=== PATIENT | male | born 1935 | race Caucasian/White ===

== ENCOUNTER 2017-10-08 22:55 | Inpatient (IN) | END 2017-10-13 15:15 | disposition home or self-care (01) | DRG 726 ==

== ENCOUNTER 2018-12-13 11:28 | Inpatient (IN) | payer MEDICARE, OTHER ==
[~2018-12-13] VITALS: Ht 162.6 cm; Wt 56.1 kg
[~2018-12-13 11:28] MED LIST: AMLO-147 PO; ATOR40TA68 PO; CARB1TAB34 PO; CLOP75TA19 PO; DOCU-216 PO; DUTA0.5C PO; GLIM4TAB PO; HYDR-3671 PO; LEVO25TA6 PO; PANT40TA4 PO; POLY17PO6 PO; PRAM0.12 PO; SERT50TA6 PO; SITA100T11 PO; SVL400T PO
--- NOTE | 2018-12-13 12:20 | ERD ---
ER Documentation Chief Complaint Chief Complaint INTERMITTENT AP WITH N/V HPI An 83-year-old male with history of Parkinson's disease, who presents for decreased oral intake, as well as abdominal pain and nausea vomiting. He had a prior history of stroke stroke, and family endorses that he has also been having a mild headache, history is limited secondary to patient's dementia, the majority of his history was obtained from his family. He lives at home with his . There is not been a fever, no history of trauma, no alleviating or aggravating factors. ROS All systems reviewed and are negative except as per history of present illness. Medications Home Meds Reported Medications Hydralazine Hcl* (Hydralazine Hcl*) 100 Mg Tablet, 100 MG PO NEEDED PRN for HTN, #90 TAB 12/13/18 Carbidopa/Levodopa (CARBIDOPA-LEVO 25-100 MG ODT) 1 Each Tab.rapdis, 1.5 TAB PO QID, #120 TAB 12/13/18 Divalproex Sodium* (Divalproex ER*) 500 Mg Tab.er.24h, 500 MG PO QHS, #30 TAB.SA 12/13/18 Quetiapine Fumarate* (Quetiapine Fumarate*) 25 Mg Tablet, 12.5 MG PO BID, TAB 12/13/18 Atorvastatin* (Atorvastatin*) 40 Mg Tablet, 40 MG PO QHS, #30 TAB 12/13/18 Clopidogrel Bisulfate* (Clopidogrel Bisulfate*) 75 Mg Tablet, 75 MG PO DAILY, #30 TAB 12/13/18 Docusate Sodium* (Colace*) 250 Mg Capsule, 250 MG PO BID, #60 CAP 12/13/18 Sitagliptin* (Januvia*) 100 Mg Tablet, 100 MG PO DAILY, #30 TAB 12/13/18 Diclofenac Sodium* (Voltaren* Gel) 1% -100 Gm Gel, 2 GM TOP BID, #1 TUB 12/13/18 Dutasteride* (Avodart*) 0.5 Mg Capsule, 0.5 MG PO DAILY, CAP 12/13/18 Glimepiride* (Glimepiride*) 4 Mg Tablet, 4 MG PO WITH BREAKFAST DINNE, TAB 12/13/18 Amlodipine Besylate* (Amlodipine Besylate*) 10 Mg Tablet, 10 MG PO DAILY, #30 TAB 12/13/18 Pantoprazole* (Pantoprazole*) 40 Mg Tablet.dr, 40 MG PO AC BREAKFAST, TAB 12/13/18 Levothyroxine Sodium* (Levothyroxine Sodium*) 25 Mcg Tablet, 25 MCG PO BEFORE BREAKFAST, #30 TAB 12/13/18 Ergocalciferol (Vitamin D2) (VITAMIN D2) 50,000 Unit Capsule, 30329 UNIT PO Q7D, CAP 12/13/18 Discontinued Reported Medications Pramipexole* (Pramipexole*) 0.125 Mg Tablet, 0.125 MG PO HS, TAB 10/08/17 Atorvastatin* (Atorvastatin*) 40 Mg Tablet, 40 MG PO QHS, #30 TAB 10/08/17 Dutasteride* (Avodart*) 0.5 Mg Capsule, 0.5 MG PO DAILY, CAP 10/08/17 Glimepiride* (Glimepiride*) 4 Mg Tablet, 4 MG PO WITH BREAKFAST DINNE, TAB 10/08/17 Hydralazine Hcl* (Hydralazine Hcl*) 25 Mg Tab, 25 MG PO Q8, #90 TAB 10/08/17 Amlodipine Besylate* (Amlodipine Besylate*) 10 Mg Tablet, 10 MG PO DAILY, #30 TAB 10/08/17 Carbidopa/Levodopa (Carbidopa-Levodopa 25-100 Tab) 1 Each Tablet, 1 EACH PO QID, TAB 10/08/17 Pantoprazole* (Pantoprazole*) 40 Mg Tablet.dr, 40 MG PO AC BREAKFAST, TAB 10/08/17 Clopidogrel Bisulfate* (Clopidogrel Bisulfate*) 75 Mg Tablet, 75 MG PO DAILY, #30 TAB 10/08/17 Sertraline Hcl* (Sertraline Hcl*) 50 Mg Tablet, 75 MG PO DAILY, #30 TAB 10/08/17 Levothyroxine Sodium* (Levothyroxine Sodium*) 25 Mcg Tablet, 25 MCG PO BEFORE BREAKFAST, #30 TAB 10/08/17 Discontinued Scripts Polyethylene Glycol* (Miralax*) 17 Gm Powd.pack, 17 GM PO BID for 30 Days, #60 UNIT Prov:IAN LY [employer]NAGER 10/13/17 Docusate Sodium (Dok) 100 Mg Capsule, 200 MG PO BID for 30 Days, #60 CAP Prov:IAN [employer]Y [employer] MANAGER 10/13/17 Sevelamer HCl (Renagel) 400 Mg Tab, 400 MG PO WITH MEALS for 30 Days, #90 TAB Prov:IAN [employer]Y [employer] MANAGER 10/13/17 Sitagliptin* (Januvia*) 100 Mg Tablet, 100 MG PO DAILY, #30 TAB Prov:IAN [employer]Y [employer] MA[employer]GER 10/13/17 Allergies Allergies: Coded Allergies: No Known Allergy (Unverified , 12/13/18) PMhx/Soc History of Surgery: Yes (hemorhoids surgery 1994, cataract surgery both 4 years ago and last year.) Anesthesia Reaction: No Hx Neurological Disorder: Yes (Parkinsons and restless legs syndrome and 3x stroke) Hx Respiratory Disorders: No Hx Cardiac Disorders: Yes (hypertension) Hx Psychiatric Problems: No Hx Miscellaneous Medical Probl: No Hx Alcohol Use: No Hx Substance Use: No Hx Tobacco Use: No Physical Exam Vitals Vital Signs Date Temp Pulse Resp B/P (MAP) Pulse Ox O2 O2 Flow FiO2 Time Delivery Rate 12/13/18 97.7 92 16 174/107 100 12:03 (129) Physical Exam Const: Agitated, anxious, elderly appearing male Head: Atraumatic Eyes: Normal Conjunctiva ENT: Normal External Ears, Nose and Mouth. Neck: Full range of motion. No meningismus. Resp: Clear to auscultation bilaterally Cardio: Regular rate and rhythm, no murmurs Abd: Soft, non tender, non distended. Normal bowel sounds Skin: No petechiae or rashes Back: No midline or flank tenderness Ext: No cyanosis, or edema Neur: Awake and alert Psych: Normal Mood and Affect Result Diagram: 12/13/18 1214 12/13/18 1214 Results 24 hrs Laboratory Tests Test 12/13/18 12:14 White Blood Count 4.3 10^3/ul Red Blood Count 3.58 10^6/ul Hemoglobin 11.6 g/dl Hematocrit 34.0 % Mean Corpuscular Volume 95.0 fl Mean Corpuscular Hemoglobin 32.4 pg Mean Corpuscular Hemoglobin Concent 34.1 g/dl Red Cell Distribution Width 12.2 % Platelet Count 113 10^3/UL Mean Platelet Volume 13.2 fl Immature Granulocytes % 0.900 % Neutrophils % 73.9 % Lymphocytes % 17.2 % Monocytes % 6.6 % Eosinophils % 0.7 % Basophils % 0.7 % Nucleated Red Blood Cells % 0.0 /100WBC Immature Granulocytes # 0.040 10^3/ul Neutrophils # 3.1 10^3/ul Lymphocytes # 0.7 10^3/ul Monocytes # 0.3 10^3/ul Eosinophils # 0.0 10^3/ul Basophils # 0.0 10^3/ul Nucleated Red Blood Cells # 0.0 10^3/ul Urine Color YELLOW Urine Clarity CLEAR Urine pH 6.0 Urine Specific Gray 1.010 Urine Ketones TRACE mg/dL Urine Nitrite NEGATIVE mg/dL Urine Bilirubin NEGATIVE mg/dL Urine Urobilinogen NEGATIVE mg/dL Urine Leukocyte Esterase NEGATIVE Mary[place]/ul Urine Microscopic RBC 0 /HPF Urine Microscopic WBC 1 /HPF Urine Hemoglobin 1+ mg/dL Urine Glucose NEGATIVE mg/dL Urine Total Protein 2+ mg/dl Sodium Level 142 mmol/L Potassium Level 4.2 mmol/L Chloride Level 101 mmol/L Carbon Dioxide Level 24 mmol/L Anion Gap 17 Blood Urea Nitrogen 25 mg/dl Creatinine 3.73 mg/dl Est Glomerular Filtrat Rate mL/min mL/min Glucose Level 149 mg/dl Calcium Level 10.2 mg/dl Total Bilirubin 0.5 mg/dl Direct Bilirubin 0.00 mg/dl Indirect Bilirubin 0.5 mg/dl Aspartate Amino Transf (AST/SGOT) 20 IU/L Alanine Aminotransferase (ALT/SGPT) 8 IU/L Alkaline Phosphatase 97 IU/L Troponin I 0.027 ng/ml Total Protein 8.7 g/dl Albumin 4.9 g/dl Globulin 3.80 g/dl Albumin/Globulin Ratio 1.28 Lipase 211 U/L Current Medications Medications Dose Sig/Thor Start Time Status Last (Trade) Ordered Route PRN Stop Time Admin Dose Reason Admin Quetiapine 25 mg ONCE ONCE 12/13/18 DC Fumarate PO 13:30 (Seroquel) 12/13/18 13:31 Lorazepam 2 mg STK-MED 12/13/18 DC (Ativan) ONCE .ROUTE 13:26 12/13/18 13:27 Lorazepam 1 mg ONCE ONCE 12/13/18 DC 12/13/18 (Ativan) IV 13:30 13:31 12/13/18 13:31 Lorazepam 1 mg ONCE ONCE 12/13/18 DC 12/13/18 (Ativan) IV 14:30 14:32 12/13/18 14:31 IV Flush 3 ml PER 12/13/18 (NS 3 ml) PROTOCOL IV 15:00 Ondansetron 4 mg Q6H PRN 12/13/18 HCl (Zofran IV 15:00 Inj) NAUSEA/VOMITI NG 650 mg Q6H PRN 12/13/18 Acetaminophen PO .PAIN 1-3 15:00 (Tylenol OR TEMP Tab) 1 tab Q6H PRN 12/13/18 Acetaminophen PO .PAIN 4-6 15:00 / Hydrocodone Bitart ([place] (5/325)) Morphine 2 mg Q4H PRN 12/13/18 Sulfate IV .PAIN 15:00 (morphine) 7-10 40 mg DAILY@12/14/18 Pantoprazole IV 06:00 (Protonix Iv) Discontinue ONCE ONCE 12/13/18 UNV Miscellaneous current oral XX 15:00 sulfonylur... 12/13/18 15:01 Information (* Miscellaneous Pharmacy Order) Diagnostic 1 ea 02 XX 12/14/18 UNV Test (Pha) 02:00 (Accu-Chek) Insulin 11 units DAILY@199912/13/18 UNV Glargine SC 20:00 (Lantus) Insulin 4 unit WITH MEALS 12/13/18 UNV Aspart SC 18:00 (Novolog Insulin Pen) ONCE ONCE 12/13/18 UNV Miscellaneous HYPOGLYCEMIA XX 15:00 PROTOCOL 12/13/18 15:01 Information w... (* Miscellaneous Pharmacy Order) Insulin NOVOLOG WITH MEALS 12/13/18 UNV Aspart *MILD* BEDTIME SC 18:00 (Novolog ALGORITHM Insulin Pen) Discontinue ONCE ONCE 12/13/18 UNV Miscellaneous all previ... XX 15:00 12/13/18 15:01 Information (* Miscellaneous Pharmacy Order) Amlodipine 10 mg DAILY PO 12/14/18 UNV Besylate 09:00 (Norvasc) 40 mg QHS PO 12/13/18 UNV Atorvastatin 21:00 Calcium (Lipitor) Clopidogrel 75 mg DAILY PO 12/14/18 Bisulfate 09:00 (plaVIX) Divalproex 500 mg QHS PO 12/13/18 UNV Sodium 21:00 (Depakote Er) Docusate 250 mg BID PO 12/13/18 UNV Sodium 21:00 (Colace) Dutasteride 0.5 mg DAILY PO 12/14/18 UNV (Avodart) 09:00 25 mcg BEFORE 12/14/18 UNV Levothyroxine BREAKFAST 07:00 Sodium PO (Synthroid) Quetiapine 12.5 mg BID PO 12/13/18 UNV Fumarate 21:00 (Seroquel) 1.5 tab QID PO 12/13/18 UNV Miscellaneous 17:00 Information Procedures/MDM This is an 83-year-old male who presents for evaluation of dehydration, abdominal pain and generalized malaise. On exam the patient appears somewhat agitated he had no focal neurologic symptoms, get an episode, where he appears t o have gazed off, and there was consideration for possible seizure, I do not witness such an episode, the patient did not appear to have a postictal period. His CT brain was negative, and he has no infectious symptoms this I do not suspect encephalitis. Regarding his abdominal pain, his labs showed no evidence of acidosis, no leukocytosis, they were otherwise unremarkable with the exception of an increase in the creatinine, from prior, which is consistent with an acute kidney injury. I suspect that this is most likely related to his decreased oral intake, given his findings, as well as the patient's difficulty caring for himself at home, he will be admitted for IV fluids, and evaluation of his kidney function, and monitoring for signs of infection. I discussed this with family. EKG: Rate/Rhythm: Normal Sinus Rhythm QRS, ST, T-waves: No changes consistent w/ acute ischemia Impression: No evidence of ischemia or arrhythmia Accepting Care Team: Current data and ongoing care discussed. Primary: Espinoza Consulting: None Outstanding Data: none Departure Diagnosis: Primary Impression: Abdominal pain Abdominal location: unspecified location Qualified Codes: R10.9 - Unspec ified abdominal pain Additional Impression: Headache Headache type: unspecified Headache chronicity pattern: unspecified pattern Intractability: not intractable Qualified Codes: R51 - Headache Condition: Stable KASEY PATEL MD Dec 13, 2018 12:20
[2018-12-13] MEDS ORDERED: ERGO500013 PO (13:25)
[2018-12-13] MEDS ORDERED: LORAZEPAM 2 MG INJ ONE (13:26)
[2018-12-13] MEDS ORDERED: LEVO25TA6 PO (13:26)
[2018-12-13] MEDS ORDERED: AMLO-147 PO (13:26)
[2018-12-13] MEDS ORDERED: PANT40TA4 PO (13:26)
[2018-12-13] MEDS ORDERED: DUTA0.5C PO (13:27)
[2018-12-13] MEDS ORDERED: GLIM4TAB PO (13:27)
[2018-12-13] MEDS ORDERED: SITA100T11 PO (13:28)
[2018-12-13] MEDS ORDERED: DICL100G37 TOP (13:28)
[2018-12-13] MEDS ORDERED: DOCU250C58 PO (13:30)
[2018-12-13] MEDS ORDERED: QUETIAPINE 25 MG TAB PO ONE (13:30)
[2018-12-13] MEDS ORDERED: LORAZEPAM 2 MG INJ IV ONE ×2 (13:30→14:30)
[2018-12-13] MEDS ORDERED: CLOP75TA19 PO (13:30)
[2018-12-13] MEDS ORDERED: ATOR40TA68 PO (13:31)
[2018-12-13] MEDS ORDERED: QUET25TA33 PO (13:32)
[2018-12-13] MEDS ORDERED: DIVA500T15 PO (13:33)
[2018-12-13] MEDS ORDERED: CARB1TAB46 PO (13:34)
[2018-12-13] MEDS ORDERED: HYDR100T25 PO (13:36)
[2018-12-13] MEDS ORDERED: ONDANSETRON 4 MG INJ IV PRN (15:00)
[2018-12-13] MEDS ORDERED: LORAZEPAM 2 MG INJ IV PRN ×2 (15:00→15:30)
[2018-12-13] MEDS ORDERED: NACL 0.9% 3 ML SYG IV SCH (15:00)
[2018-12-13] MEDS ORDERED: ACETAMINOPHEN 325 MG TAB PO PRN (15:00)
[2018-12-13] MEDS ORDERED: HYDROCODONE/APAP (5/325) TAB PO PRN (15:00)
--- NOTE | 2018-12-13 15:21 | HP ---
Date/Time of Note Date/Time of Note DATE: 12/13/18 TIME: 15:21 Assessment/Plan VTE Prophylaxis Pharmacological prophylaxis: other Assessment/Plan Hospital Course Patient is a male with a past medical history significant for severe Parkinson's dementia, CKD, BPH, diabetes mellitus, CVA, hypothyroidism, prostate cancer who presents to [facility] brought in by family. Patient's family states that they awoke to the patient this morning being more altered than normal. Patient's baseline apparently is able to answer simple questions and able to recite the family members names. Currently patient is not oriented at all. Patient unable to answer simple question and shaking in the bed however patient while shaking is having coordinated movements including pulling up his blanket as well as trying to take his socks off. Patient is not able to cooperate at this time with HPI for rest of history is given from family at bedside. Patient's family states that over the past week patient has been having intermittently worsening nausea vomiting as well as decreased p.o. intake. Patient has not taken his medications for a few days. HPI is limited as patient is not coherent enough to answer questions. Objective Physical exam General: Patient is laying in bed but not answering questions Mentation: Patient is alert but not oriented Head: Normocephalic atraumatic Eyes: EOMI, pupils reactive to light Neck: Supple, nontender, midline Respiratory: Clear to auscultation bilaterally Cardiovascular: regular rate, no obvious murmurs Gastrointestinal: non-tender to palpation, bowel sounds heard. Neurological: Moves all extremities spontaneously, however has some shaking movements Skin: No new skin lesions Assessment and plan Acute encephalopathy -May be due to decreased p.o. intake and volume depletion as patient has not been having good intake for the past week -CT negative for acute intracranial issues -MRI pending -IV fluid -No known source of infection at this time, no fever -Questionable seizure activity as patient is shaking a lot however during the shaking episodes patient has coordinated movements and is unlike typical shaking activity, Ativan as needed for seizures -Patient also not taking medication for quite some time as unable to tolerate p.o., IV Zyprexa and IV Depakote for now -Neurology consulted Shaking episodes -Worsening sequelae of Parkinson's and not being able to take his medications versus seizure -Treat seizure as needed with Ativan -Neurology consulted -MRI pending -EEG pending Acute kidney injury on chronic kidney disease -Patient's baseline is in the twos per family, -Has a history of obstruction, will insert Preston -We will IV fluid hydrate -Nephrology consulted Diabetes mellitus -Insulin sliding scale BPH -Continue meds when able Hypertension -PRN meds for now 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 History of prostate cancer -Monitor Disposition -We will need to stabilize patient from the neurological standpoint, patient still shaking, use Ativan as needed, will give 1 dose of Zyprexa as patient has not has his Seroquel and some time, will also restart patient's Depakote Result Diagram: 12/13/18 1214 12/13/18 1214 Results 24hrs Laboratory Tests Test 12/13/18 12:14 12/13/18 15:14 White Blood Count 4.3 #L Red Blood Count 3.58 L Hemoglobin 11.6 L Hematocrit 34.0 L Mean Corpuscular Volume 95.0 Mean Corpuscular Hemoglobin 32.4 Mean Corpuscular Hemoglobin Concent 34.1 Red Cell Distribution Width 12.2 Platelet Count 113 L Mean Platelet Volume 13.2 H Immature Granulocytes % 0.900 H Neutrophils % 73.9 Lymphocytes % 17.2 Monocytes % 6.6 Eosinophils % 0.7 Basophils % 0.7 Nucleated Red Blood Cells % 0.0 Immature Granulocytes # 0.040 H Neutrophils # 3.1 Lymphocytes # 0.7 L Monocytes # 0.3 Eosinophils # 0.0 Basophils # 0.0 Nucleated Red Blood Cells # 0.0 Urine Color YELLOW Urine Clarity CLEAR Urine pH 6.0 Urine Specific [place] 1.010 Urine Ketones TRACE A Urine Nitrite NEGATIVE Urine Bilirubin NEGATIVE Urine Urobilinogen NEGATIVE Urine Leukocyte Esterase NEGATIVE Urine Microscopic RBC 0 Urine Microscopic WBC 1 Urine Hemoglobin 1+ H Urine Glucose NEGATIVE Urine Total Protein 2+ H Sodium Level 142 Potassium Level 4.2 Chloride Level 101 Carbon Dioxide Level 24 Anion Gap 17 H Blood Urea Nitrogen 25 H Creatinine 3.73 H Est Glomerular Filtrat Rate mL/min Glucose Level 149 Calcium Level 10.2 Total Bilirubin 0.5 Direct Bilirubin 0.00 Indirect Bilirubin 0.5 Aspartate Amino Transf (AST/SGOT) 20 Alanine Aminotransferase (ALT/SGPT) 8 L Alkaline Phosphatase 97 Troponin I 0.027 Total Protein 8.7 H Albumin 4.9 Globulin 3.80 H Albumin/Globulin Ratio 1.28 Lipase 211 Bedside Glucose 151 HPI/ROS Admit Date/Time Admit Date/Time PMH/Family/Social Past Medical History Medications Current Medications IV Flush (NS 3 ml) 3 ml PER PROTOCOL IV ; Start 12/13/18 at 15:00 Ondansetron HCl (Zofran Inj) 4 mg Q6H PRN IV NAUSEA/VOMITING; Start 12/13/18 at 15:00 Acetaminophen (Tylenol Tab) 650 mg Q6H PRN PO .PAIN 1-3 OR TEMP; Start 12/13/18 at 15:00 Acetaminophen/ Hydrocodone Bitart ([place] (5/325)) 1 tab Q6H PRN PO .PAIN 4-6; Start 12/13/18 at 15:00 Morphine Sulfate (morphine) 2 mg Q4H PRN IV .PAIN 7-10; Start 12/13/18 at 15:00 Pantoprazole (Protonix Iv) 40 mg DAILY@06 IV ; Start 12/14/18 at 06:00 Miscellaneous Information (* Miscellaneous Pharmacy Order) Discontinue current oral sulfonylur... ONCE ONCE XX ; Start 12/13/18 at 15:00; Stop 12/13/18 at 15:01; Status UNV Diagnostic Test (Pha) (Accu-Chek) 1 ea 02 XX ; Start 12/14/18 at 02:00; Status UNV Miscellaneous Information (* Miscellaneous Pharmacy Order) HYPOGLYCEMIA PROTOCOL w... ONCE ONCE XX ; Start 12/13/18 at 15:00; Stop 12/13/18 at 15:01; Status UNV Miscellaneous Information (* Miscellaneous Pharmacy Order) Discontinue all p revi... ONCE ONCE XX ; Start 12/13/18 at 15:00; Stop 12/13/18 at 15:01; Status UNV Amlodipine Besylate (Norvasc) 10 mg DAILY PO ; Start 12/14/18 at 09:00; Status UNV Atorvastatin Calcium (Lipitor) 40 mg QHS PO ; Start 12/13/18 at 21:00; Status UNV Clopidogrel Bisulfate (plaVIX) 75 mg DAILY PO ; Start 12/14/18 at 09:00 Docusate Sodium (Colace) 250 mg BID PO ; Start 12/13/18 at 21:00; Status UNV Dutasteride (Avodart) 0.5 mg DAILY PO ; Start 12/14/18 at 09:00; Status UNV Quetiapine Fumarate (Seroquel) 12.5 mg BID PO ; Start 12/13/18 at 21:00; Status UNV Miscellaneous Information 1.5 tab QID PO ; Start 12/13/18 at 17:00; Status UNV Lorazepam (Ativan) 2 mg Q10MIN PRN IV seizure; Start 12/13/18 at 15:00; Status UNV Olanzapine (Zyprexa) 10 mg ONCE ONCE IM ; Start 12/13/18 at 16:00; Stop 12/13/18 at 16:01 Insulin Aspart (Novolog Insulin Pen) NOVOLOG *MILD* ALGORITHM Q4 SC ; Start 12/02 10/22 at 18:00; Status UNV Labetalol HCl (Labetalol) 10 mg Q4 PRN IV sbp >160; Start 12/13/18 at 15:30; Status UNV Lorazepam (Ativan) 1 mg Q6H PRN IV agitation; Start 12/13/18 at 15:30; Status UNV Valproate Sodium 500 mg/Sodium Chloride 55 ml @ 55 mls/hr QHS IVPB ; Start 12/13/18 at 21:00; Status UNV Levothyroxine Sodium (Synthroid Iv) 17 mcg DAILY IV ; Start 12/13/18 at 15:30; Status UNV Coded Allergies: No Known Allergy (Unverified , 12/13/18) Past Surgical History Past Surgical Hx: endoscopy Family History Significant Family History: no pertinent family hx Social History Smoking Status: Never smoker Exam/Review of Systems Vital Signs Vitals Vital Signs Date Temp Pulse Resp B/P (MAP) Pulse Ox O2 O2 Flow FiO2 Time Delivery Rate 12/13/18 93 26 148/89 98 Room Air 13:30 (108) 12/13/18 97.7 12:03 KASEY AKBAR Dec 13, 2018 15:21
[2018-12-13] MEDS ORDERED: DEXTROSE 50% 50 ML SYRINGE IV PRN ×2 (15:30)
[2018-12-13] MEDS ORDERED: GLUCOSE GEL 15 GRAM TUBE BUCCAL PRN (15:30)
[2018-12-13] MEDS ORDERED: GLUCAGON 1 MG INJ IM PRN (15:30)
[2018-12-13] MEDS ORDERED: GLUCOSE GEL 15 GRAM TUBE PO PRN ×2 (15:30)
[2018-12-13] MEDS ORDERED: OLANZAPINE 10 MG VIAL IM ONE (16:00)
[2018-12-13] MEDS ORDERED: CARBIDOPA PO SCH (17:00)
[2018-12-13] MEDS: CARBIDOPA/LEVODOPA (25/100) TAB PO SCH ×2 (17:00→21:00)
[2018-12-13] MEDS ORDERED: LIDOCAINE 2% JEL.PF.APP 5 ML UROJET SYRINGE MM ONE (17:00)
[2018-12-13] MEDS ORDERED: LEVODOPA PO SCH (17:00)
[2018-12-13] MEDS ORDERED: [UNRECOGNIZED DRUG - OTHER] PO SCH (17:00)
[2018-12-13] MEDS ORDERED: hydrALAzine 20 MG INJ IV ONE (17:00)
[2018-12-13] MEDS: LEVOTHYROXINE 100 MCG VIAL IV SCH (17:03)
[2018-12-13] MEDS: LABETALOL HCL 20MG INJ IV PRN (17:39)
[2018-12-13] MEDS: INSULIN ASPART [NOVOLOG] 3 ML PEN SC SCH ×2 (18:00→22:33)
[2018-12-13] MEDS ORDERED: INSULIN ASPART [NOVOLOG] 3 ML PEN SC SCH ×2 (18:00)
[2018-12-13] MEDS ORDERED: INSULIN GLARGINE [LANTus] (100 UNITS/ML) SYG SC SCH (20:00)
[2018-12-13 20:41] VITALS: PULSE 112
[2018-12-13 20:45] VITALS: Ht 162.6 cm; Wt 56.1 kg
[2018-12-13 20:50] VITALS: BP 126/74; PULSE 102; RESP 20
[2018-12-13] MEDS: DOCUSATE SODIUM 250 MG CAP PO SCH (21:00)
[2018-12-13] MEDS: QUETIAPINE 25 MG TAB PO SCH (21:00)
[2018-12-13] MEDS: ATORVASTATIN 40 MG TAB PO SCH (21:00)
[2018-12-13] MEDS ORDERED: DIVALPROEX (ER) 500 MG TAB PO SCH (21:00)
[2018-12-13] MEDS ORDERED: HALOPERIDOL 5 MG INJ IM PRN (22:00)
[2018-12-13] MEDS ORDERED: DEXTROSE 5%-0.45% NACL 1,000 ML IV SCH (22:30)
[2018-12-13] MEDS: VALPROATE INJ 500 MG in SOD CHLORIDE 0.9% 50 ML IVPB SCH (22:39)
--- NOTE | 2018-12-13 23:09 | CONS ---
DATE OF ADMISSION: 12/13/2018 DATE OF CONSULTATION: 12/13/2018 REASON FOR CONSULT: Acute kidney injury. PHYSICIAN REQUESTING CONSULT: Dr. Kasey Doran HISTORY OF PRESENT ILLNESS: This is an 83-year-old male with a past medical history of chronic kidne y disease stage IV with a previous baseline creatinine around 2.5 to 2.8 mg/dL, history of hypertensi on, anemia, diabetes, history of progressive dementia, history of Parkinson disease, history of CVA, history of coronary artery disease, history of hypothyroidism, who presented to [facility] with worsening mental status. The patient's history was obtained by reviewing the medical re cords, speaking to the patient's family at bedside. Apparently, patient at baseline is able to answe r simple questions. However, over the past several days, the patient was noted to have uncoordinated movements, myoclonic-type jerks. The patient is also noted to have decreased p.o. intake including nausea and vomiting. As a result of his progressive symptoms, the patient was brought in to [facility] Room for evaluation. Upon arrival, patient had imaging studies performed including a CT scan of the brain which showed no acute findings, an abdominal CT scan which showed no evidence of acute intra-abdominal findings, no e vidence of obstructive uropathy. The patient in the emergency room was given IV fluids, was given an xiolytics . The patient, however, continued to have episodes of agitation and myoclonic jerks. In terms of patient's renal history, the patient has a previous history of chronic kidney disease wit h previous baseline creatinine between 2.5 and 2.8 mg/dL. On admission, patient had a creatinine of 3.7 mg/dL. There were no reports of any hemoptysis, positive nausea, positive vomiting, no hematoche janis. PAST MEDICAL HISTORY: As stated above, history of chronic kidney disease stage IV, history of hypert ension, history of anemia, diabetes, Parkinson disease, CVA, coronary artery disease, hypothyroidism. PAST SURGICAL HISTORY: Status post EGD. FAMILY HISTORY: Noncontributory. SOCIAL HISTORY: He does not drink, smoke or do drugs. MEDICATIONS: The patient's medications have been reviewed. REVIEW OF SYSTEMS: Unable to do adequate review of systems. The patient is altered. Pertinent posi tives as obtained by reviewing medical records, speaking to hospital staff as stated in the HPI. Oth erwise negative. PHYSICAL EXAMINATION: VITAL SIGNS: Blood pressure is 200/110. Pulse is 76. Temperature is 98.6. HEENT: Head is normocephalic. Pupils are reactive to light. NECK: Supple. HEART: Tachycardic. LUNGS: Show diminished breath sounds at the bases. ABDOMEN: Soft, nontender to palpation. No rebound or guarding. EXTREMITIES: Negative for clubbing or cyanosis. No edema. DERMATOLOGIC: No rashes. MUSCULOSKELETAL: No joint effusion. NEUROLOGIC: The patient has noted myoclonic-type jerks. No obvious evidence of focal deficits. LABORATORY DATA: Show a white count of 4.3, hemoglobin 11.6, platelet count 113. BUN 25, creatinine 3.73. The patient's urinalysis has been reviewed. IMAGING STUDIES: Have been reviewed. ASSESSMENT AND PLAN: This is an 83-year-old male who presents with: 1. Nonoliguric kidney injury on top of chronic kidney disease stage IV with previous baseline creati nine around 2.5 to 2.8 mg/dL. The etiology of acute kidney injury is possibly multifactorial seconda ry to hemodynamics, possible tubular injury in the setting of hypertensive urgency, possible obstruct becki uropathy. The patient's initial urinalysis was reviewed. It showed no active sediment, +2 prote inuria. The patient is status post Preston catheter with excellent urinary output. Plan at this point would be to continue current medical management. Would discontinue IV fluids in the setting of hype rtension. Would continue current blood pressure regimen. Avoid significant hemodynamic fluctuations if possible. Would otherwise continue supportive care, renally dose all meds, avoid nephrotoxins. Will continue to monitor renal function closely. Please note I did speak with the patient's family a t bedside, informing them that if renal function should further decline in the setting of severe ence phalopathy, renal replacement therapy may be indicated. The patient's family is aware and is deferri ng any form of dialysis at this time. 2. Hypertensive urgency. Etiology is likely due to agitation. Continue to monitor. Continue curre nt blood pressure regimen. Would hold IV fluids. 3. Anemia. Monitor H and H levels. 4. Mineral bone disorder. Monitor calcium and phosphorus levels. 5. History of benign prostatic hypertrophy. Today, the patient is status post Preston catheter placem ent. Continue to monitor. 6. History of prostate cancer. Continue to monitor. 7. Acute encephalopathy. Etiology may be multifactorial secondary to progressive dementia, Parkinso n disease, questionable uremia. The patient is status post IV Zyprexa and Depakote. Continue to mon itor. Consider neurologic evaluation. 8. Myoclonic jerks. Unclear if this is due to Parkinson's versus uremia, questionable seizure. Con tinue medical management. Follow up MRI. Follow up with Neurology. 9. Diabetes. Continue current insulin regimen. 10. History of Parkinson dementia. Continue current medical management. 11. History of cerebrovascular accident. Continue Plavix. 12. Hypothyroidism. Continue Synthroid. Thank you, Dr. Doran, for this interesting consult. It will be a pleasure to follow the patient with kar paul throughout the hospital course. Dictated By: OUMOU MCNULTY DO NR/NTS Conf#: [id number] DID#: [id number] CC: KASEY DORAN MD;*EndCC*
[2018-12-14] VITALS (9 sets, daily range): BP systolic 108–163; BP diastolic 59–77; PULSE 56–108; RESP 20
[2018-12-14] MEDS: INSULIN ASPART [NOVOLOG] 3 ML PEN SC SCH ×6 (01:00→21:00)
[2018-12-14] MEDS ORDERED: ACCU-CHEK XX SCH (02:00)
[2018-12-14] MEDS: PANTOPRAZOLE 40 MG INJ IV SCH (05:19)
[2018-12-14] MEDS ORDERED: LEVOTHYROXINE 25 MCG TAB PO SCH (07:00)
--- NOTE | 2018-12-14 07:06 | EEG ---
EEG NOTE Report Details DATE OF TEST: 12/13/18 HISTORY: The patient is a 83-year-old M who presents with altered mental status and heightened shaking. This EEG is requested to evaluate for seizures. SEDATION: None. CONDITIONS OF RECORDING: This EEG was recorded digitally on the [employer] machine, using the International 10-20 System of electrodes plus anterior temporals and [place]. STATES SAMPLED: Lethargic. FINDINGS: There is frontally predominant high frequency artifact throughout. The background is otherwise continuous and grossly symmetric...predominated by polymorphic theta and delta activity. A well-formed posterior dominant rhythm is absent. The normal [id number] frequency-amplitude gradient was absent. Photic stimulation elicits does not elicit any definite driving responses or epileptiform discharges. Hyperventilation was not performed. No asymmetries, focal abnormalities or epileptiform discharges were seen. IMPRESSION: Technically limited electroencephalogram notable for: diffuse slowing. COMMENT: The slowing of the background indicates diffuse cortical dysfunction of nonspecific etiology. JAMILA SALAZAR Dec 14, 2018 07:06
[2018-12-14] MEDS: LEVOTHYROXINE 100 MCG VIAL IV SCH (08:52)
[2018-12-14] MEDS: CARBIDOPA/LEVODOPA (25/100) TAB PO SCH ×5 (08:53→21:00)
[2018-12-14] MEDS: QUETIAPINE 25 MG TAB PO SCH ×2 (08:53→21:00)
[2018-12-14] MEDS: DOCUSATE SODIUM 250 MG CAP PO SCH ×2 (08:54→21:00)
[2018-12-14] MEDS: CLOPIDOGREL 75 MG TAB PO SCH (08:54)
[2018-12-14] MEDS: DUTASTERIDE 0.5 MG CAP PO SCH (08:54)
[2018-12-14] MEDS: AMLODIPINE 10 MG TAB PO SCH (08:54)
--- NOTE | 2018-12-14 09:18 | CONS ---
Assessment/Plan Assessment/Plan Hospital Course 83 M w/ Parkinson Disease, who presents for evaluation of ams and heightened tremors. BUN/Cr elevated; baseline is presently unknown.. Perhaps an acute toxic-metabolic on chronic encephalopathy.. A focal SOLID PLASTERER process is less likely. CTH is without acute intracranial pathology, though notable for severe atrophy. EEG is without epileptiform activity. P: Clarify baseline renal function when able Add CXR to exclude infiltrate Add B12, Ammonia, Depakote level Decrease Sinemet to 25/100 mg 1 tab qid for now.. Goehner as able Avoid 1st gen dopamine antagonists where possible PT/OT/ST as necessary Other medical workup management per primary Will follow clinically Consultation Date/Type/Reason Admit Date/Time Type of Consult Neurology Reason for Consultation worsening ams Requesting Provider: KASEY AKBAR Date/Time of Note DATE: 12/14/18 TIME: 09:18 Hx of Present Illness The pt is unable to contribute a hx. It is elsewhere noted: Patient is a male with a past medical history significant for severe Parkinson's dementia, CKD, BPH, diabetes mellitus, CVA, hypothyroidism, prostate cancer who presents to [facility] brought in by family. Patient's family states that they awoke to the patient this morning being more altered than artie l. Patient's baseline apparently is able to answer simple questions and able to recite the family members names. Currently patient is not oriented at all. Patient unable to answer simple question and shaking in the bed however patient while shaking is having coordinated movements including pulling up his blanket as well as trying to take his socks off. Patient is not able to cooperate at this time with HPI for rest of history is given from family at bedside. Patient's family states that over the past week patient has been having intermittently worsening nausea vomiting as well as decreased p.o. intake. Patient has not taken his medications for a few days. HPI is limited as patient is not coherent enough to answer questions. limited d/t ams Exam/Review of Systems Exam Vitals Vital Signs Date Temp Pulse Resp B/P (MAP) Pulse Ox O2 O2 Flow FiO2 Time Delivery Rate 12/14/18 62 08:05 12/14/18 97.7 20 129/64 100 07:26 (85) 12/14/18 Nasal 2.0 04:00 Cannula Intake and Output 12/13/18 12/13/18 12/14/18 1515:00 23:00 07:00 IntakeIntake Total 550 ml OutputOutput Total 1250 ml BalanceBalance -700 ml Exam PE: Gen Appearance: Anxious, agitated HEENT: Normocephalic Cardiovascular: Regular rate Abdomen: Soft Extremities: Dry NE: The patient was awake and alert, though nonverbal. Able to fix and follow. Unable to follow commands. The pt was rocking back and forth in the bed. Cranial nerve examination was limited by mental status. Pupils were equal and reactive to light. There was no afferent pupillary defect. Funduscopic examination was limited. Face was grossly symmetric, w/ present corneal and cough reflexes. Tone was normal. Muscle bulk was normal. I did not see fasciculations. The pt moved his extremities spontaneously. Coordination and gait testing was limited by mental status. Arm and leg reflexes were within normal limits and symmetric. Carreon's sign was absent. Plantar responses were flexor. Results Result Diagram: 12/14/18 0613 12/14/18 0613 Results 24hrs Laboratory Tests Test 12/13/18 12:14 12/13/18 15:14 12/13/18 18:15 12/13/18 22:32 White Blood Count 4.3 #L Red Blood Count 3.58 L Hemoglobin 11.6 L Hematocrit 34.0 L Mean Corpuscular 95.0 Volume Mean Corpuscular 32.4 Hemoglobin Mean Corpuscular 34.1 Hemoglobin Concent Red Cell 12.2 Distribution Width Platelet Count 113 L Mean Platelet Volume 13.2 H Immature 0.900 H Granulocytes % Neutrophils % 73.9 Lymphocytes % 17.2 Monocytes % 6.6 Eosinophils % 0.7 Basophils % 0.7 Nucleated Red Blood 0.0 Cells % Immature 0.040 H Granulocytes # Neutrophils # 3.1 Lymphocytes # 0.7 L Monocytes # 0.3 Eosinophils # 0.0 Basophils # 0.0 Nucleated Red Blood 0.0 Cells # Urine Color YELLOW Urine Clarity CLEAR Urine pH 6.0 Urine Specific 1.010 [place] Urine Ketones TRACE A Urine Nitrite NEGATIVE Urine Bilirubin NEGATIVE Urine Urobilinogen NEGATIVE Urine Leukocyte NEGATIVE Esterase Urine Microscopic 0 RBC Urine Microscopic 1 WBC Urine Hemoglobin 1+ H Urine Random 58.65 Creatinine Urine Random Sodium 62 Urine Glucose NEGATIVE Urine Total Protein 300.0 H Sodium Level 142 Potassium Level 4.2 Chloride Level 101 Carbon Dioxide Level 24 Anion Gap 17 H Blood Urea Nitrogen 25 H Creatinine 3.73 H Est Glomerular Filtrat Rate mL/min Glucose Level 149 Calcium Level 10.2 Total Bilirubin 0.5 Direct Bilirubin 0.00 Indirect Bilirubin 0.5 Aspartate Amino 20 Transf (AST/SGOT) Alanine 8 L Aminotransferase (AL T/SGPT) Alkaline Phosphatase 97 Troponin I 0.027 Total Protein 8.7 H Albumin 4.9 Globulin 3.80 H Albumin/Globulin 1.28 Ratio Lipase 211 Urine Opiates Screen Negative Urine Barbiturates Negative Urine Amphetamines Negative Screen Urine Negative Benzodiazepines Screen Urine Cocaine Screen Negative Urine Cannabinoids Negative Bedside Glucose 151 110 98 Test 12/14/18 01:25 12/14/18 05:17 12/14/18 06:13 Bedside Glucose 114 122 White Blood Count 6.1 # Red Blood Count 3.17 L Hemoglobin 10.0 L Hematocrit 31.2 L Mean Corpuscular 98.4 Volume Mean Corpuscular 31.5 Hemoglobin Mean Corpuscular 32.1 Hemoglobin Concent Red Cell 13.0 Distribution Width Platelet Count 108 L Mean Platelet Volume 13.9 H Immature 0.500 H Granulocytes % Neutrophils % 71.8 Lymphocytes % 15.4 Monocytes % 11.3 H Eosinophils % 0.3 Basophils % 0.7 Nucleated Red Blood 0.0 Cells % Immature 0.030 Granulocytes # Neutrophils # 4.4 Lymphocytes # 0.9 Monocytes # 0.7 Eosinophils # 0.0 Basophils # 0.0 Nucleated Red Blood 0.0 Cells # Sodium Level 146 H Potassium Level 4.3 Chloride Level 110 Carbon Dioxide Level 24 Anion Gap 12 Blood Urea Nitrogen 27 H Creatinine 3.88 H Est Glomerular Filtrat Rate mL/min Glucose Level 132 Hemoglobin A1c 5.7 Calcium Level 9.3 Magnesium Level 2.2 Total Bilirubin 0.3 Direct Bilirubin 0.00 Indirect Bilirubin 0.3 Aspartate Amino 36 # Transf (AST/SGOT) Alanine 14 Aminotransferase (AL T/SGPT) Alkaline Phosphatase 75 Total Protein 7.1 # Albumin 4.0 Globulin 3.10 Albumin/Globulin 1.29 Ratio Triglycerides Level 340 H Cholesterol Level 187 LDL Cholesterol, 64 Calculated HDL Cholesterol 55 Cholesterol/HDL 3.4 Ratio Thyroid Stimulating 3.690 Hormone (TSH) Medications Medication Current Medications IV Flush (NS 3 ml) 3 ml PER PROTOCOL IV ; Start 12/13/18 at 15:00 Ondansetron HCl (Zofran Inj) 4 mg Q6H PRN IV NAUSEA/VOMITING; Start 12/13/18 at 15:00 Acetaminophen (Tylenol Tab) 650 mg Q6H PRN PO .PAIN 1-3 OR TEMP; Start 12/13/18 at 15:00 Acetaminophen/ Hydrocodone Bitart (Ler[place] (5/325)) 1 tab Q6H PRN PO .PAIN 4-6; Start 12/13/18 at 15:00 Morphine Sulfate (morphine) 2 mg Q4H PRN IV .PAIN 7-10; Start 12/13/18 at 15:00 Pantoprazole (Protonix Iv) 40 mg DAILY@06 IV Last administered on 12/14/18at 05: 19; Admin Dose 40 MG; Start 12/14/18 at 06:00 Diagnostic Test (Pha) (Accu-Chek) 1 ea 02 XX Last administered on 12/14/18at 01:27; Admin Dose 1 EA; Start 12/14/18 at 02:00 Amlodipine Besylate (Norvasc) 10 mg DAILY PO ; Start 12/14/18 at 09:00 Atorvastatin Calcium (Lipitor) 40 mg QHS PO ; Start 12/13/18 at 21:00 Clopidogrel Bisulfate (plaVIX) 75 mg DAILY PO ; Start 12/14/18 at 09:00 Docusate Sodium (Colace) 250 mg BID PO ; Start 12/13/18 at 21:00 Dutasteride (Avodart) 0.5 mg DAILY PO ; Start 12/14/18 at 09:00 Quetiapine Fumarate (Seroquel) 12.5 mg BID PO ; Start 12/13/18 at 21:00 Lorazepam (Ativan) 2 mg Q10MIN PRN IV seizure; Start 12/13/18 at 15:00 Insulin Aspart (Novolog Insulin Pen) NOVOLOG *MILD* ALGORITHM Q4 SC ; Start 12/13/18 at 18:00 Labetalol HCl (Labetalol) 10 mg Q4H PRN IV sbp >160 Last administered on 12/13/18at 17:39; Admin Dose 10 MG; Start 12/13/18 at 15:30 Lorazepam (Ativan) 1 mg Q6H PRN IV agitation; Start 12/13/18 at 15:30 Valproate Sodium 500 mg/Sodium Chloride 55 ml @ 55 mls/hr QHS IVPB Last administered on 12/13/18at 22:39; Admin Dose 55 MLS/HR; Start 12/13/18 at 21:00 Levothyroxine Sodium (Synthroid Iv) 17 mcg DAILY IV Last administered on 12/14/18at 08:52; Admin Dose 17 MCG; Start 12/13/18 at 15:30 Miscellaneous Information 1 ea NOTE XX ; Start 12/13/18 at 15:30 Glucose (Glutose) 15 gm Q15M PRN PO DECREASED GLUCOSE; Start 12/13/18 at 15:30 Glucose (Glutose) 22.5 gm Q15M PRN PO DECREASED GLUCOSE; Start 12/13/18 at 15:30 Dextrose (D50w Syringe) 25 ml Q15M PRN IV DECREASED GLUCOSE; Start 12/13/18 at 15:30 Dextrose (D50w Syringe) 50 ml Q15M PRN IV DECREASED GLUCOSE; Start 12/13/18 at 15:30 Glucagon (Glucagen) 1 mg Q15M PRN IM DECREASED GLUCOSE; Start 12/13/18 at 15:30 Glucose (Glutose) 15 gm Q15M PRN BUCCAL DECREASED GLUCOSE; Start 12/13/18 at 1 5:30 Carbidopa/Levodopa (Sinemet (25/ 100)) 1.5 tab QID PO ; Start 12/13/18 at 17:00 Haloperidol (Haldol) 5 mg ONCE PRN IM AGITATION/ANXIETY Last administered on 12/13/18at 23:23; Admin Dose 5 MG; Start 12/13/18 at 22:00 Dextrose 1,000 ml @ 50 mls/hr Q20H IV ; Start 12/14/18 at 09:30; Status UNV Past Medical History reviewed Home Meds Reported Medications Hydralazine Hcl* (Hydralazine Hcl*) 100 Mg Tablet, 100 MG PO NEEDED PRN for HTN, #90 TAB 12/13/18 Carbidopa/Levodopa (CARBIDOPA-LEVO 25-100 MG ODT) 1 Each Tab.rapdis, 1.5 TAB PO QID, #120 TAB 12/13/18 Divalproex Sodium* (Divalproex ER*) 500 Mg Tab.er.24h, 500 MG PO QHS, #30 TAB.SA 12/13/18 Quetiapine Fumarate* (Quetiapine Fumarate*) 25 Mg Tablet, 12.5 MG PO BID, TAB 12/13/18 Atorvastatin* (Atorvastatin*) 40 Mg Tablet, 40 MG PO QHS, #30 TAB 12/13/18 Clopidogrel Bisulfate* (Clopidogrel Bisulfate*) 75 Mg Tablet, 75 MG PO DAILY, #30 TAB 12/13/18 Docusate Sodium* (Colace*) 250 Mg Capsule, 250 MG PO BID, #60 CAP 12/13/18 Sitagliptin* (Januvia*) 100 Mg Tablet, 100 MG PO DAILY, #30 TAB 12/13/18 Diclofenac Sodium* (Voltaren* Gel) 1% -100 Gm Gel, 2 GM TOP BID, #1 TUB 12/13/18 Dutasteride* (Avodart*) 0.5 Mg Capsule, 0.5 MG PO DAILY, CAP 12/13/18 Glimepiride* (Glimepiride*) 4 Mg Tablet, 4 MG PO WITH BREAKFAST DINNE, TAB 12/13/18 Amlodipine Besylate* (Amlodipine Besylate*) 10 Mg Tablet, 10 MG PO DAILY, #30 TAB 12/13/18 Pantoprazole* (Pantoprazole*) 40 Mg Tablet.dr, 40 MG PO AC BREAKFAST, TAB 12/13/18 Levothyroxine Sodium* (Levothyroxine Sodium*) 25 Mcg Tablet, 25 MCG PO BEFORE BREAKFAST, #30 TAB 12/13/18 Ergocalciferol (Vitamin D2) (VITAMIN D2) 50,000 Unit Capsule, 70416 UNIT PO Q7D, CAP 12/13/18 Discontinued Reported Medications Pramipexole* (Pramipexole*) 0.125 Mg Tablet, 0.125 MG PO HS, TAB 10/08/17 Atorvastatin* (Atorvastatin*) 40 Mg Tablet, 40 MG PO QHS, #30 TAB 10/08/17 Dutasteride* (Avodart*) 0.5 Mg Capsule, 0.5 MG PO DAILY, CAP 10/08/17 Glimepiride* (Glimepiride*) 4 Mg Tablet, 4 MG PO WITH BREAKFAST DINNE, TAB 10/08/17 Hydralazine Hcl* (Hydralazine Hcl*) 25 Mg Tab, 25 MG PO Q8, #90 TAB 10/08/17 Amlodipine Besylate* (Amlodipine Besylate*) 10 Mg Tablet, 10 MG PO DAILY, #30 TAB 10/08/17 Carbidopa/Levodopa (Carbidopa-Levodopa 25-100 Tab) 1 Each Tablet, 1 EACH PO QID, TAB 10/08/17 Pantoprazole* (Pantoprazole*) 40 Mg Tablet.dr, 40 MG PO AC BREAKFAST, TAB 10/08/17 Clopidogrel Bisulfate* (Clopidogrel Bisulfate*) 75 Mg Tablet, 75 MG PO DAILY, #30 TAB 10/08/17 Sertraline Hcl* (Sertraline Hcl*) 50 Mg Tablet, 75 MG PO DAILY, #30 TAB 10/08/17 Levothyroxine Sodium* (Levothyroxine Sodium*) 25 Mcg Tablet, 25 MCG PO BEFORE BREAKFAST, #30 TAB 10/08/17 Discontinued Scripts Polyethylene Glycol* (Miralax*) 17 Gm Powd.pack, 17 GM PO BID for 30 Days, #60 UNIT Prov:IAN LY OPTOMETRIC TECH 10/13/17 Docusate Sodium (Dok) 100 Mg Capsule, 200 MG PO BID for 30 Days, #60 CAP Prov:IAN LY OPTOMETRIC TECH 10/13/17 Sevelamer HCl (Renagel) 400 Mg Tab, 400 MG PO WITH MEALS for 30 Days, #90 TAB Prov:IAN LY OPTOMETRIC TECH 10/13/17 Sitagliptin* (Januvia*) 100 Mg Tablet, 100 MG PO DAILY, #30 TAB Prov:IAN LY OPTOMETRIC TECH 10/13/17 Medications Current Medications IV Flush (NS 3 ml) 3 ml PER PROTOCOL IV ; Start 12/13/18 at 15:00 Ondansetron HCl (Zofran Inj) 4 mg Q6H PRN IV NAUSEA/VOMITING; Start 12/13/18 at 15:00 Acetaminophen (Tylenol Tab) 650 mg Q6H PRN PO .PAIN 1-3 OR TEMP; Start 12/13/18 at 15:00 Acetaminophen/ Hydrocodone Bitart ([place]er[place] (5/325)) 1 tab Q6H PRN PO .PAIN 4-6; Start 12/13/18 at 15:00 Morphine Sulfate (morphine) 2 mg Q4H PRN IV .PAIN 7-10; Start 12/13/18 at 15:00 Pantoprazole (Protonix Iv) 40 mg DAILY@06 IV Last administered on 12/14/18at 05:19; Admin Dose 40 MG; Start 12/14/18 at 06:00 Diagnostic Test (Pha) (Accu-Chek) 1 ea 02 XX Last administered on 12/14/18at 01:27; Admin Dose 1 EA; Start 12/14/18 at 02:00 Amlodipine Besylate (Norvasc) 10 mg DAILY PO ; Start 12/14/18 at 09:00 Atorvastatin Calcium (Lipitor) 40 mg QHS PO ; Start 12/13/18 at 21:00 Clopidogrel Bisulfate (plaVIX) 75 mg DAILY PO ; Start 12/14/18 at 09:00 Docusate Sodium (Colace) 250 mg BID PO ; Start 12/13/18 at 21:00 Dutasteride (Avodart) 0.5 mg DAILY PO ; Start 12/14/18 at 09:00 Quetiapine Fumarate (Seroquel) 12.5 mg BID PO ; Start 12/13/18 at 21:00 Lorazepam (Ativan) 2 mg Q10MIN PRN IV seizure; Start 12/13/18 at 15:00 Insulin Aspart (Novolog Insulin Pen) NOVOLOG *MILD* ALGORITHM Q4 SC ; Start 12/13/18 at 18:00 Labetalol HCl (Labetalol) 10 mg Q4H PRN IV sbp >160 Last administered on 12/13/18at 17:39; Admin Dose 10 MG; Start 12/13/18 at 15:30 Lorazepam (Ativan) 1 mg Q6H PRN IV agitation; Start 12/13/18 at 15:30 Valproate Sodium 500 mg/Sodium Chloride 55 ml @ 55 mls/hr QHS IVPB Last administered on 12/13/18at 22:39; Admin Dose 55 MLS/HR; Start 12/13/18 at 21:00 Levothyroxine Sodium (Synthroid Iv) 17 mcg DAILY IV Last administered on 12/14/18at 08:52; Admin Dose 17 MCG; Start 12/13/18 at 15:30 Miscellaneous Information 1 ea NOTE XX ; Start 12/13/18 at 15:30 Glucose (Glutose) 15 gm Q15M PRN PO DECREASED GLUCOSE; Start 12/13/18 at 15:30 Glucose (Glutose) 22.5 gm Q15M PRN PO DECREASED GLUCOSE; Start 12/13/18 at 15:30 Dextrose (D50w Syringe) 25 ml Q15M PRN IV DECREASED GLUCOSE; Start 12/13/18 at 15:30 Dextrose (D50w Syringe) 50 ml Q15M PRN IV DECREASED GLUCOSE; Start 12/13/18 at 15:30 Glucagon (Glucagen) 1 mg Q15M PRN IM DECREASED GLUCOSE; Start 12/13/18 at 15:30 Glucose (Glutose) 15 gm Q15M PRN BUCCAL DECREASED GLUCOSE; Start 12/13/18 at 15:30 Carbidopa/Levodopa (Sinemet (25/ 100)) 1.5 tab QID PO ; Start 12/13/18 at 17:00 Haloperidol (Haldol) 5 mg ONCE PRN IM AGITATION/ANXIETY Last administered on 12/13/18at 23:23; Admin Dose 5 MG; Start 12/13/18 at 22:00 Dextrose 1,000 ml @ 50 mls/hr Q20H IV ; Start 12/14/18 at 09:30; Status UNV Allergies: Coded Allergies: lorazepam (Verified Allergy, Severe, PARADOXICAL REACTION W/ INCREASED AGITATION, 12/13/18) Past Surgical History reviewed Past Surgical Hx: endoscopy Social History reviewed Smoking Status: Never smoker LEXIE VERA NP Dec 14, 2018 09:18 JAMILA SALAZAR Dec 14, 2018 12:33
--- NOTE | 2018-12-14 09:28 | PN ---
DATE: 12/14/2018 SUBJECTIVE: The patient is stable, no events overnight. OBJECTIVE: VITAL SIGNS: Blood pressure is 129/64, respirations 20, pulse 59, temperature 97.7. HEENT: Head is normocephalic. NECK: Supple. HEART: Regular rate. LUNGS: Show diminished breath sounds at the base. ABDOMEN: Soft, nontender to palpation without rebound or guarding. EXTREMITIES: Negative for clubbing, cyanosis, no edema. DERMATOLOGIC: No rashes. MUSCULOSKELETAL: No joint effusion. NEUROLOGIC: No change in exam. MEDICATIONS: Reviewed. LABORATORY DATA: Reviewed. ASSESSMENT AND PLAN: 1. Nonoliguric acute kidney injury on top of chronic kidney disease stage IV with previous baseline creatinine of 2.5 to 2.8 mg/dL. Etiology of acute kidney injury is secondary to hemodynamics, possib le tubular injury. The patient's urinalysis was reviewed, was noted to be bland, no active sediment. The patient does, however, have nephrotic range proteinuria. The patient's renal function continue s to decline in the last 24 hours. At this point, we would continue current treatment plans, support becki care, renally dose all medicines. We will monitor renal function closely. 2. Hypernatremia. The patient is currently on hypertonic fluid. We will switch fluids to D5 water. 3. Hypertensive urgency. Continue current blood pressure regimen. 4. Anemia. Monitor hemoglobin and hematocrit levels. 5. Mineral bone disorder. Monitor calcium and phosphorus levels. 6. Benign prostatic hypertrophy, history of prostate cancer, the patient is status post [place] cathet er placement. 7. Acute encephalopathy. Etiology is multifactorial secondary to toxic metabolic, possible progress becki dementia, Parkinson disease, questionable uremia. Continue current medical management. Follow u p with neurology. 8. Myoclonic jerks. Etiology is unclear. Questionable Parkinson's versus uremia versus seizure. C ontinue to monitor. 9. Diabetes. Continue current insulin regimen. 10. History of Parkinson's dementia. 11. History is history of cerebrovascular accident. 12. Hypothyroidism. Continue Synthroid. Dictated By: OUMOU MCNULTY DO NR/NTS Conf#: [id number] DID#: [id number] CC: KASEY AKBAR MD; JAMILA SALAZAR;*End*
[2018-12-14] MEDS: DEXTROSE 5% 1,000 ML IV SCH (09:46)
--- NOTE | 2018-12-14 14:47 | PN ---
Date/Time of Note Date/Time of Note DATE: 12/14/18 TIME: 14:42 Objective Vitals Vital Signs Date Temp Pulse Resp B/P (MAP) Pulse Ox O2 O2 Flow FiO2 Time Delivery Rate 12/14/18 75 12:48 12/14/18 98.8 20 116/59 100 11:26 (78) 12/14/18 Nasal 2.0 08:00 Cannula Intake and Output 12/13/18 12/13/18 12/14/18 1414:59 22:59 06:59 IntakeIntake Total 550 ml OutputOutput Total 1250 ml BalanceBalance -700 ml Results Result Diagram: 12/14/1861212/14/18612 Medications Medications Current Medications IV Flush (NS 3 ml) 3 ml PER PROTOCOL IV ; Start 12/13/18 at 15:00 Ondansetron HCl (Zofran Inj) 4 mg Q6H PRN IV NAUSEA/VOMITING; Start 12/13/18 at 15:00 Acetaminophen (Tylenol Tab) 650 mg Q6H PRN PO .PAIN 1-3 OR TEMP; Start 12/13/18 at 15:00 Acetaminophen/ Hydrocodone Bitart ([place] (5/325)) 1 tab Q6H PRN PO .PAIN 4-6; Start 12/13/18 at 15:00 Morphine Sulfate (morphine) 2 mg Q4H PRN IV .PAIN 7-10; Start 12/13/18 at 15:00 Pantoprazole (Protonix Iv) 40 mg DAILY@06 IV Last administered on 12/14/18at 05:19; Admin Dose 40 MG; Start 12/14/18 at 06:00 Diagnostic Test (Pha) (Accu-Chek) 1 ea 02 XX Last administered on 12/14/18at 01:27; Admin Dose 1 EA; Start 12/14/18 at 02:00 Amlodipine Besylate (Norvasc) 10 mg DAILY PO ; Start 12/14/18 at 09:00 Atorvastatin Calcium (Lipitor) 40 mg QHS PO ; Start 12/13/18 at 21:00 Clopidogrel Bisulfate (plaVIX) 75 mg DAILY PO ; Start 12/14/18 at 09:00 Docusate Sodium (Colace) 250 mg BID PO ; Start 12/13/18 at 21:00 Dutasteride (Avodart) 0.5 mg DAILY PO ; Start 12/14/18 at 09:00 Quetiapine Fumarate (Seroquel) 12.5 mg BID PO ; Start 12/13/18 at 21:00 Lorazepam (Ativan) 2 mg Q10MIN PRN IV seizure; Start 12/13/18 at 15:00 Insulin Aspart (Novolog Insulin Pen) NOVOLOG *MILD* ALGORITHM Q4 SC ; Start 12/13/18 at 18:00 Labetalol HCl (Labetalol) 10 mg Q4H PRN IV sbp >160 Last administered on 12/13/18at 17:39; Admin Dose 10 MG; Start 12/13/18 at 15:30 Lorazepam (Ativan) 1 mg Q6H PRN IV agitation; Start 12/13/18 at 15:30 Valproate Sodium 500 mg/Sodium Chloride 55 ml @ 55 mls/hr QHS IVPB Last administered on 12/13/18at 22:39; Admin Dose 55 MLS/HR; Start 12/13/18 at 21:00 Levothyroxine Sodium (Synthroid Iv) 17 mcg DAILY IV Last administered on 12/14at 08:52; Admin Dose 17 MCG; Start 12/13/18 at 15:30 Miscellaneous Information 1 ea NOTE XX ; Start 12/13/18 at 15:30 Glucose (Glutose) 15 gm Q15M PRN PO DECREASED GLUCOSE; Start 12/13/18 at 15:30 Glucose (Glutose) 22.5 gm Q15M PRN PO DECREASED GLUCOSE; Start 12/13/18 at 15:30 Dextrose (D50w Syringe) 25 ml Q15M PRN IV DECREASED GLUCOSE; Start 12/13/18 at 15:30 Dextrose (D50w Syringe) 50 ml Q15M PRN IV DECREASED GLUCOSE; Start 12/13/18 at 15:30 Glucagon (Glucagen) 1 mg Q15M PRN IM DECREASED GLUCOSE; Start 12/13/18 at 15:30 Glucose (Glutose) 15 gm Q15M PRN BUCCAL DECREASED GLUCOSE; Start 12/13/18 at 15:30 Haloperidol (Haldol) 5 mg ONCE PRN IM AGITATION/ANXIETY Last administered on 12/02 10/22at 23:23; Admin Dose 5 MG; Start 12/13/18 at 22:00 Dextrose 1,000 ml @ 50 mls/hr Q20H IV Last administered on 12/14/18at 09:46; Admin Dose 50 MLS/HR; Start 12/14/18 at 09:30 Carbidopa/Levodopa (Sinemet (25/ 100)) 1 tab QID PO ; Start 12/14/18 at 13:00 VTE Prophylaxis Risk score (from [facility])>0 risk: 2 SCD applied (from [facility] [place] Yes Lines/Catheters IV Catheter Type: Preston in Place: No Assessment/Plan Hospital Course Subjective Patient is much more calm versus yesterday in the ED, he is arousable however very sleepy, at bedside stated that the patient's mentation has significantly improved since yesterday but is still not baseline, patient able to tell answers in very simple yes and no or movements. Objective Physical exam General: Patient is laying in bed but not answering questions Mentation: Patient is arousable but not oriented Head: Normocephalic atraumatic Eyes: EOMI, pupils reactive to light Neck: Supple, nontender, midline Respiratory: Clear to auscultation bilaterally Cardiovascular: regular rate, no obvious murmurs Gastrointestinal: non-tender to palpation, bowel sounds heard. Neurological: Moves all extremities spontaneously, however has some shaking movements Skin: No new skin lesions Assessment and plan Acute encephalopathy -May be due to decreased p.o. intake and volume depletion as patient has not been having good intake for the past week and resultant toxic metabolic encephalopathy due to possible uremia -CT negative for acute intracranial issues -MRI pending, however unlikely to be able to be done due to patient's chronic Parkinson's tremors -IV fluid per nephrology -No known source of infection at this time, no fever -Questionable seizure activity as patient is shaking a lot however during the shaking episodes patient has coordinated movements and is unlike typical shaking activity, Ativan as needed for seizures -Patient also not taking medication for quite some time as unable to tolerate p.o., IV Zyprexa as needed and IV Depakote for now -Neurology consulted -Nephrology consulted Shaking/tremor episodes -Worsening sequelae of Parkinson's and not being able to take his medications versus seizure -Patient does have baseline have some tremor due to his Parkinson's -Treat seizure as needed with Ativan -Neurology consulted -MRI pending -EEG pending Acute kidney injury on chronic kidney disease -Patient's baseline is in the twos per family, -Has a history of obstruction, Preston was inserted yesterday with difficulty, over 800 cc, obstruction likely contributed to patient's acute kidney injury -We will IV fluid hydrate per nephrology recommendations -Nephrology consulted Diabetes mellitus -Insulin sliding scale BPH -Continue meds when able Hypertension -PRN meds for now 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 History of prostate cancer -Monitor Questionable pneumonia -Patient not having overt respiratory symptoms however chest x-ray does show po ssible evidence, given patient's unresolving encephalopathy, will start ceftriaxone for now and titrate off later. Disposition -Continue workup from nephrology and neurology perspective, KASEY AKBAR Dec 14, 2018 14:47
[2018-12-14] MEDS ORDERED: CEFTRIAXONE 1 GM/50 ML (PMX) 50 ML IVPB SCH (15:00)
[2018-12-14] MEDS: ATORVASTATIN 40 MG TAB PO SCH (21:00)
[2018-12-14] MEDS ORDERED: hydrALAzine 20 MG INJ IV ONE (21:30)
[2018-12-14] MEDS: VALPROATE INJ 500 MG in SOD CHLORIDE 0.9% 50 ML IVPB SCH (21:30)
[2018-12-14] MEDS: morphine 2 MG INJ IV PRN ×2 (23:24→23:29)
[2018-12-15] VITALS (11 sets, daily range): BP systolic 121–163; BP diastolic 57–77; PULSE 58–98; RESP 20
[2018-12-15] MEDS: INSULIN ASPART [NOVOLOG] 3 ML PEN SC SCH ×6 (01:00→20:29)
[2018-12-15] MEDS ORDERED: HALOPERIDOL 5 MG INJ IM ONE (01:30)
[2018-12-15] MEDS: DEXTROSE 5% 1,000 ML IV SCH (06:23)
[2018-12-15] MEDS: PANTOPRAZOLE 40 MG INJ IV SCH (06:23)
[2018-12-15] MEDS: LEVOTHYROXINE 100 MCG VIAL IV SCH (08:41)
[2018-12-15] MEDS: DOCUSATE SODIUM 250 MG CAP PO SCH ×2 (09:00→20:29)
[2018-12-15] MEDS: DUTASTERIDE 0.5 MG CAP PO SCH (09:00)
[2018-12-15] MEDS: CLOPIDOGREL 75 MG TAB PO SCH (09:00)
[2018-12-15] MEDS: AMLODIPINE 10 MG TAB PO SCH (09:00)
[2018-12-15] MEDS: CARBIDOPA/LEVODOPA (25/100) TAB PO SCH ×4 (09:00→20:29)
[2018-12-15] MEDS ORDERED: OLANZAPINE 10 MG VIAL IM PRN (09:00)
[2018-12-15] MEDS: QUETIAPINE 25 MG TAB PO SCH ×2 (09:00→20:29)
--- NOTE | 2018-12-15 09:00 | PN ---
DATE: 12/15/2018 SUBJECTIVE: The patient remains confused and agitated. The patient remains attempting to pull out l ine and Preston catheter. The patient was given Haldol overnight. No other events noted. OBJECTIVE: VITAL SIGNS: Blood pressure is 161/74, respirations 20, pulse 77, temperature 98.9. HEENT: Head is normocephalic. NECK: Supple. HEART: Regular rate. LUNGS: Show diminished breath sounds at the base. ABDOMEN: Soft, nontender to palpation without rebound or guarding. EXTREMITIES: Negative for clubbing, cyanosis, no edema. DERMATOLOGIC: No rashes. MUSCULOSKELETAL: No joint effusion. NEUROLOGIC: No change in exam. MEDICATIONS: Reviewed. LABORATORY DATA: Reviewed. IMAGING STUDIES: Reviewed. ASSESSMENT AND PLAN: 1. Nonoliguric acute kidney injury on top of chronic kidney disease stage IV with previous baseline creatinine of 2.5 to 2.8 mg/dL. Etiology of current acute kidney injury is possibly due to hemodynam ics, tubular injury. The patient's urinalysis was reviewed. Plan at this point is to follow up alireza l panel. The patient may still be in injury phase of acute tubular necrosis. Continue current treat ment plans, supportive care, renally dose all medicines. 2. Hypernatremia. Continue hypertonic fluids. 3. Hypertensive urgency. Continue current blood pressure regimen. 4. Anemia. Continue to monitor hemoglobin and hematocrit levels. 5. Benign prostatic hypertrophy with history of prostate cancer. Continue medical management. 6. Acute cerebrovascular accident. The patient's MRI was reviewed. Continue medical management, mo nitor closely. 7. Encephalopathy secondary to acute cerebrovascular, dementia, Parkinson disease. Continue current treatment plan. 8. Diabetes. Continue current insulin regimen. 9. History of previous cerebrovascular accident. 10. Hypothyroidism. Dictated By: OUMOU MCNULTY DO NR/NTS Conf#: [id number] DID#: [id number] CC: JAMILA SALAZAR; KASEY AKBAR MD;*End*
--- NOTE | 2018-12-15 11:09 | CONS ---
Assessment/Plan Assessment/Plan Hospital Course 83 M w/ Parkinson Disease, who presents for evaluation of ams and heightened tremors. BUN/Cr elevated; baseline is presently unknown.. Perhaps an acute toxic-metabolic on chronic encephalopathy.. MRI brain is notable for a tiny and acute L caudate head infarct...which is likely without clinical consequence... EEG is without epileptiform activity. LDL 64 P: Add coags, ESR, RPR Add CUS, echo Resume Plavix 75mg daily per ops for the same when medically able; LDL is at goal.. Cont Sinemet 25/100 mg 1 tab qid for now [place] as able Avoid 1st gen dopamine antagonists where possible PT/OT/ST as necessary Other medical workup management per primary Will follow clinically Consultation Date/Type/Reason Admit Date/Time Dec 13, 2018 at 14:40 Type of Consult Neurology Reason for Consultation worsening ams Requesting Provider: KASEY AKBAR Date/Time of Note DATE: 12/15/18 TIME: 11:09 24 HR Interval Summary Free Text/Dictation Continues acute care. S/p MRI brain. Awaiting speech therapy eval Exam Vital Signs Vitals Vital Signs Date Temp Pulse Resp B/P (MAP) Pulse Ox O2 O2 Flow FiO2 Time Delivery Rate 12/15/18 81 08:08 12/15/18 Nasal 2.0 08:00 Cannula 12/15/18 98.9 20 161/74 98 07:37 (103) Intake and Output 12/14/18 12/14/18 12/15/18 1515:00 23:00 07:00 IntakeIntake Total 0 ml 55 ml 550 ml OutputOutput Total 650 ml 300 ml BalanceBalance 0 ml -595 ml 250 ml Exam PE: Gen Appearance: Anxious, agitated HEENT: Normocephalic Cardiovascular: Regular rate Abdomen: Soft Extremities: Dry NE: The patient was awake and alert, though sparsely verbal. Follows simple commands. Cranial nerve examination was limited by mental status. Pupils were equal and re active to light. There was no afferent pupillary defect. Funduscopic examination was limited. Face was grossly symmetric, w/ present corneal and cough reflexes. Tone was increased in the upper extremities (L>R). Muscle bulk was normal. I did not see fasciculations. The pt moved his extremities spontaneously. Coordination and gait testing was limited by mental status. Arm and leg reflexes were within normal limits and symmetric. Carreon's sign was absent. Plantar responses were flexor. LEXIE VERA NP Dec 15, 2018 11:09 JAMILA SALAZAR Dec 16, 2018 06:52
[2018-12-15] MEDS: AMPICILLIN/SULB 1.5GM/NS (PMX) 50 ML IVPB SCH ×2 (11:57→20:28)
[2018-12-15] MEDS ORDERED: PIPER-TAZO 3.375 GM IV (PMX) 100 ML IVPB SCH (12:00)
[2018-12-15] MEDS: ASPIRIN 300 MG SUPP PR SCH (12:31)
--- NOTE | 2018-12-15 14:22 | PN ---
Date/Time of Note Date/Time of Note DATE: 12/15/18 TIME: : Objective Vitals Vital Signs Date Temp Pulse Resp B/P (MAP) Pulse Ox O2 O2 Flow FiO2 Time Delivery Rate 12/15/18 Nasal 2.0 13:00 Cannula 12/15/18 67 12:07 12/15/18 98.1 20 140/67 99 11:21 (91) Intake and Output 12/14/18 12/14/18 12/15/18 1414:59 22:59 06:59 IntakeIntake Total 0 ml 55 ml 550 ml OutputOutput Total 650 ml 300 ml BalanceBalance 0 ml -595 ml 250 ml Results Result Diagram: 12/15/18 1307 12/15/18 0656 Medications Medications Current Medications IV Flush (NS 3 ml) 3 ml PER PROTOCOL IV ; Start 12/13/18 at 15:00 Ondansetron HCl (Zofran Inj) 4 mg Q6H PRN IV NAUSEA/VOMITING; Start 12/13/18 at 15:00 Acetaminophen (Tylenol Tab) 650 mg Q6H PRN PO .PAIN 1-3 OR TEMP; Start 12/13/18 at 15:00 Acetaminophen/ Hydrocodone Bitart ([place] (5/325)) 1 tab Q6H PRN PO .PAIN 4-6; Start 12/13/18 at 15:00 Morphine Sulfate (morphine) 2 mg Q4H PRN IV .PAIN 7-10 Last administered on 12/14/18at 23:29; Admin Dose 2 MG; Start 12/13/18 at 15:00 Pantoprazole (Protonix Iv) 40 mg DAILY@06 IV Last administered on 12/15/18at 06:23; Admin Dose 40 MG; Start 12/14/18 at 06:00 Amlodipine Besylate (Norvasc) 10 mg DAILY PO ; Start 12/14/18 at 09:00 Atorvastatin Calcium (Lipitor) 40 mg QHS PO ; Start 12/13/18 at 21:00 Clopidogrel Bisulfate (plaVIX) 75 mg DAILY PO ; Start 12/14/18 at 09:00; Status Hold Docusate Sodium (Colace) 250 mg BID PO ; Start 12/13/18 at 21:00 Dutasteride (Avodart) 0.5 mg DAILY PO ; Start 12/14/18 at 09:00 Quetiapine Fumarate (Seroquel) 12.5 mg BID PO ; Start 12/13/18 at 21:00 Lorazepam (Ativan) 2 mg Q10MIN PRN IV seizure; Start 12/13/18 at 15:00 Insulin Aspart (Novolog Insulin Pen) NOVOLOG *MILD* ALGORITHM Q4 SC ; Start 12/13/18 at 18:00 Labetalol HCl (Labetalol) 10 mg Q4H PRN IV sbp >160 Last administered on 12/13/18at 17:39; Admin Dose 10 MG; Start 12/13/18 at 15:30 Lorazepam (Ativan) 1 mg Q6H PRN IV agitation; Start 12/13/18 at 15:30 Valproate Sodium 500 mg/Sodium Chloride 55 ml @ 55 mls/hr QHS IVPB Last administered on 12/14/18at 21:30; Admin Dose 55 MLS/HR; Start 12/13/18 at 21:00 Levothyroxine Sodium (Synthroid Iv) 17 mcg DAILY IV Last administered on 12/15/18at 08:41; Admin Dose 17 MCG; Start 12/13/18 at 15:30 Miscellaneous Information 1 ea NOTE XX ; Start 12/13/18 at 15:30 Glucose (Glutose) 15 gm Q15M PRN PO DECREASED GLUCOSE; Start 12/13/18 at 15:30 Glucose (Glutose) 22.5 gm Q15M PRN PO DECREASED GLUCOSE; Start 12/13/18 at 15:30 Dextrose (D50w Syringe) 25 ml Q15M PRN IV DECREASED GLUCOSE; Start 12/13/18 at 15:30 Dextrose (D50w Syringe) 50 ml Q15M PRN IV DECREASED GLUCOSE; Start 12/13/18 at 15:30 Glucagon (Glucagen) 1 mg Q15M PRN IM DECREASED GLUCOSE; Start 12/13/18 at 15:30 Glucose (Glutose) 15 gm Q15M PRN BUCCAL DECREASED GLUCOSE; Start 12/13/18 at 15:30 Dextrose 1,000 ml @ 50 mls/hr Q20H IV Last administered on 12/15/18at 06:23; Admin Dose 50 MLS/HR; Start 12/14/18 at 09:30 Carbidopa/Levodopa (Sinemet (25/ 100)) 1 tab QID PO ; Start 12/14/18 at 13:00 Olanzapine (Zyprexa) 10 mg DAILY PRN IM agitation; Start 12/15/18 at 09:00 Ampicillin Sodium/ Sulbactam Sodium 50 ml @ 100 mls/hr Q12 IVPB Last administered on 12/15/18at 11:57; Admin Dose 100 MLS/HR; Start 12/15/18 at 11:00 Aspirin (Aspirin) 81 mg DAILY AL Last administered on 12/15/18at 12:31; Admin Dose 81 MG; Start 12/15/18 at 11:00 VTE Prophylaxis Risk score (from [facility] [place])>0 risk: 2 SCD applied (from [facility] [place]): Yes Lines/Catheters IV Catheter Type: Schwartz in Place: Yes Cont'd schwartz catheter reason: urinary retention Assessment/Plan Hospital Course Subjective Patient continues to improve, at bedside, patient now responds to questions although slow Objective Physical exam General: Patient is laying in bed but answers some questions Mentation: Patient is arousable but not oriented Head: Normocephalic atraumatic Eyes: EOMI, pupils reactive to light Neck: Supple, nontender, midline Respiratory: Clear to auscultation bilaterally Cardiovascular: regular rate, no obvious murmurs Gastrointestinal: non-tender to palpation, bowel sounds heard. Neurological: Moves all extremities spontaneously, however has some shaking movements Skin: No new skin lesions Assessment and plan Acute encephalopathy -May be due to decreased p.o. intake and volume depletion as patient has not been having good intake for the past week and resultant toxic metabolic encepha lopathy due to possible uremia -CT negative for acute intracranial issues -MRI showing small caudate CVA, however per neurology this is unlikely the true etiology of all of patient's previous symptoms -IV fluid per nephrology -Questionable seizure activity as patient is shaking a lot however during the shaking episodes patient has coordinated movements and is unlike typical shaking activity, Ativan as needed for seizures -Patient also not taking medication for quite some time as unable to tolerate p.o., IV Zyprexa as needed and IV Depakote for now -Neurology consulted -Nephrology consulted Shaking/tremor episodes -Worsening sequelae of Parkinson's and not being able to take his medications versus seizure -Patient does have baseline have some tremor due to his Parkinson's -Treat seizure as needed with Ativan -Neurology consulted -MRI noted for small CVA -EEG pending Right caudate nucleus CVA -3 mm per MRI -Rectal aspirin for now until patient can resume his previous Plavix Aspiration pneumonia -Questionable for possible given patient's encephalopathic state -IV Unasyn for now, renally dosed -possible on cxr Acute kidney injury on chronic kidney disease -Patient's baseline is in the 2's per family, -Has a history of obstruction, Schwartz was inserted in ER with difficulty, over 80 0 cc, obstruction likely contributed to patient's acute kidney injury -We will IV fluid hydrate per nephrology recommendations -Nephrology consulted Diabetes mellitus -Insulin sliding scale BPH -Continue meds when able Hypertension -PRN meds for now 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 History of prostate cancer -Monitor Disposition -Patient continues to improve daily. Monitor. Nephrology and neurology recommendations appreciated KASEY AKBAR Dec 15, 2018 14:22
[2018-12-15] MEDS: VALPROATE INJ 500 MG in SOD CHLORIDE 0.9% 50 ML IVPB SCH (20:18)
[2018-12-15] MEDS: ATORVASTATIN 40 MG TAB PO SCH (20:29)
[2018-12-15] MEDS: LABETALOL HCL 20MG INJ IV PRN (20:36)
[2018-12-16] VITALS (10 sets, daily range): BP systolic 138–175; BP diastolic 62–87; PULSE 55–84; RESP 19–20
[2018-12-16] MEDS: INSULIN ASPART [NOVOLOG] 3 ML PEN SC SCH ×6 (00:24→21:00)
[2018-12-16] MEDS: DEXTROSE 5% 1,000 ML IV SCH ×2 (01:30→03:19)
[2018-12-16] MEDS ORDERED: HALOPERIDOL 5 MG INJ IM ONE ×2 (03:00)
[2018-12-16] MEDS ORDERED: DIPHENHYDRAMINE 50 MG INJ IV ONE (03:00)
[2018-12-16] MEDS: PANTOPRAZOLE 40 MG INJ IV SCH (06:27)
[2018-12-16] MEDS: QUETIAPINE 25 MG TAB PO SCH ×2 (09:00→21:00)
[2018-12-16] MEDS: AMLODIPINE 10 MG TAB PO SCH (09:00)
[2018-12-16] MEDS: LEVOTHYROXINE 100 MCG VIAL IV SCH (09:00)
[2018-12-16] MEDS: ASPIRIN 300 MG SUPP PR SCH (09:00)
[2018-12-16] MEDS: CARBIDOPA/LEVODOPA (25/100) TAB PO SCH ×4 (09:00→21:00)
[2018-12-16] MEDS: DOCUSATE SODIUM 250 MG CAP PO SCH ×2 (09:00→21:00)
[2018-12-16] MEDS: DUTASTERIDE 0.5 MG CAP PO SCH (09:00)
--- NOTE | 2018-12-16 09:37 | PN ---
DATE: 12/16/2018 SUBJECTIVE: The patient remains confused but stable. No other events noted overnight. OBJECTIVE: VITAL SIGNS: Blood pressure is 138/68, pulse 60, respirations 20, temperature 98.1. HEENT: Head is normocephalic. NECK: Supple. HEART: Regular rate. LUNGS: Show diminished breath sounds at the base. ABDOMEN: Soft, nontender to palpation without rebound or guarding. EXTREMITIES: Negative for clubbing, cyanosis, no edema. DERMATOLOGIC: No rashes. MUSCULOSKELETAL: No joint effusion. NEUROLOGIC: No change in exam. MEDICATIONS: The patient's medications have been reviewed. LABORATORY DATA: Has been reviewed. ASSESSMENT AND PLAN: 1. Nonoliguric acute kidney injury on top of chronic kidney disease stage IV with previous baseline creatinine 2.4 to 2.8 mg/dL. Etiology of acute kidney injury is secondary to hemodynamics, tubular i njury. The patient's renal function appears to be stabilizing around a creatinine of 3.7 mg/dL. At t his point, continue current treatment plan, supportive care, renally dose all meds. 2. Hypernatremia. Continue hypertonic fluid. 3. Hypokalemia. We will replete potassium chloride. 4. Hypertension. Continue current blood pressure regimen. 5. Anemia. Monitor hemoglobin and hematocrit levels. 6. Benign prostatic hypertrophy. Continue medical management. 7. Acute cerebrovascular accident. Continue current treatment plan. 8. Encephalopathy. Etiology is multifactorial secondary to acute cerebrovascular, dementia, Yolanda on disease. Continue medical management. 9. Diabetes. Continue current insulin regimen. 10. Hypothyroidism. Continue Synthroid. Dictated By: OUMOU MCNULTY DO NR/NTS Conf#: [id number] DID#: [id number] CC: JAMILA SALAZAR; KASEY AKBAR MD;*EndCC*
[2018-12-16] MEDS: D5W + KCL 20 MEQ 1,000 ML IV SCH ×2 (10:44→22:50)
[2018-12-16] MEDS: AMPICILLIN/SULB 1.5GM/NS (PMX) 50 ML IVPB SCH ×2 (10:44→20:57)
--- NOTE | 2018-12-16 11:08 | CONS ---
Assessment/Plan Assessment/Plan Hospital Course 83 M w/ Parkinson Disease, who presents for evaluation of ams and heightened tremors. BUN/Cr elevated; baseline is presently unknown.. Perhaps an acute toxic-metabolic on chronic encephalopathy.. MRI brain is notable for a tiny and acute L caudate head infarct...which is likely without clinical consequence... EEG is without epileptiform activity. CUS is unremarkable LDL 64, coags wnl ESR 78 P: Await RPR, echo read Resume Plavix 75mg daily per ops for the same when medically able; LDL is at goal.. Cont Sinemet 25/100 mg 1 tab qid for now [place] as able Avoid 1st gen dopamine antagonists where possible PT/OT/ST as necessary Other medical workup management per primary Will follow clinically Consultation Date/Type/Reason Admit Date/Time Dec 13, 2018 at 14:40 Type of Consult Neurology Reason for Consultation worsening ams Requesting Provider: KASEY AKBAR Date/Time of Note DATE: 12/16/18 TIME: 11:05 24 HR Interval Summary Free Text/Dictation Continues acute care. Pt reportedly agitated overnight, requiring haldol and zyprexa. Awaiting video swallow eval when pt is more awake. Exam Vital Signs Vitals Vital Signs Date Temp Pulse Resp B/P (MAP) Pulse Ox O2 O2 Flow FiO2 Time Delivery Rate 12/16/18 60 08:15 12/16/18 98.1 20 138/68 98 07:26 (91) 12/16/18 Nasal 04:00 Cannula 12/15/18 2.0 19:58 Intake and Output 12/15/18 12/15/18 12/16/18 1515:00 23:00 07:00 IntakeIntake Total 705 ml 550 ml OutputOutput Total 900 ml BalanceBalance 705 ml -350 ml Exam PE: Gen Appearance: Calm, NAD HEENT: Normocephalic Cardiovascular: Regular rate Abdomen: Soft Extremities: Dry NE: The patient was asleep, though arousable to voice. Sparsely verbal. Follows simple axial and appendicular commands. Cranial nerve examination was limited by mental status. Pupils were equal and reactive to light. There was no afferent pupillary defect. Funduscopic examination was limited. Face was grossly symmetric, w/ present corneal and cough reflexes. Tone was increased in the upper extremities (L>R). Muscle bulk was normal. I did not see fasciculations. The pt moved his extremities spontaneously. Coordination and gait testing was limited by mental status. Arm and leg reflexes were within normal limits and symmetric. Carreon's sign was absent. Plantar responses were flexor. LEXIE VERA NP Dec 16, 2018 11:08
--- NOTE | 2018-12-16 11:17 | PN ---
Date/Time of Note Date/Time of Note DATE: 12/16/18 TIME: 11:14 Objective Vitals Vital Signs Date Temp Pulse Resp B/P (MAP) Pulse Ox O2 O2 Flow FiO2 Time Delivery Rate 12/16/18 60 08:15 12/16/18 98.1 20 138/68 98 07:26 (91) 12/16/18 Nasal 04:00 Cannula 12/15/18 2.0 19:58 Intake and Output 12/15/18 12/15/18 12/16/18 1414:59 22:59 06:59 IntakeIntake Total 705 ml 550 ml OutputOutput Total 900 ml BalanceBalance 705 ml -350 ml Results Result Diagram: 12/16/1803 12/16/18 0603 Medications Medications Current Medications IV Flush (NS 3 ml) 3 ml PER PROTOCOL IV ; Start 12/13/18 at 15:00 Ondansetron HCl (Zofran Inj) 4 mg Q6H PRN IV NAUSEA/VOMITING; Start 12/13/18 at 15:00 Acetaminophen (Tylenol Tab) 650 mg Q6H PRN PO .PAIN 1-3 OR TEMP; Start 12/13/18 at 15:00 Acetaminophen/ Hydrocodone Bitart ([place] (5/325)) 1 tab Q6H PRN PO .PAIN 4-6; Start 12/13/18 at 15:00 Morphine Sulfate (morphine) 2 mg Q4H PRN IV .PAIN 7-10 Last administered on 12/14/18at 23:29; Admin Dose 2 MG; Start 12/13/18 at 15:00 Pantoprazole (Protonix Iv) 40 mg DAILY@06 IV Last administered on 12/16/18at 06:27; Admin Dose 40 MG; Start 12/14/18 at 06:00 Amlodipine Besylate (Norvasc) 10 mg DAILY PO ; Start 12/14/18 at 09:00 Atorvastatin Calcium (Lipitor) 40 mg QHS PO ; Start 12/13/18 at 21:00 Clopidogrel Bisulfate (plaVIX) 75 mg DAILY PO ; Start 12/14/18 at 09:00; Status Hold Docusate Sodium (Colace) 250 mg BID PO ; Start 12/13/18 at 21:00 Dutasteride (Avodart) 0.5 mg DAILY PO ; Start 12/14/18 at 09:00 Quetiapine Fumarate (Seroquel) 12.5 mg BID PO ; Start 12/13/18 at 21:00 Lorazepam (Ativan) 2 mg Q10MIN PRN IV seizure; Start 12/13/18 at 15:00 Insulin Aspart (Novolog Insulin Pen) NOVOLOG *MILD* ALGORITHM Q4 SC ; Start 12/13/18 at 18:00 Labetalol HCl (Labetalol) 10 mg Q4H PRN IV sbp >160 Last administered on 12/15/18at 20:36; Admin Dose 10 MG; Start 12/13/18 at 15:30 Lorazepam (Ativan) 1 mg Q6H PRN IV agitation; Start 12/13/18 at 15:30 Valproate Sodium 500 mg/Sodium Chloride 55 ml @ 55 mls/hr QHS IVPB Last administered on 12/15/18at 20:18; Admin Dose 55 MLS/HR; Start 12/13/18 at 21:00 Levothyroxine Sodium (Synthroid Iv) 17 mcg DAILY IV Last administered on 12/16/18at 09:00; Admin Dose 17 MCG; Start 12/13/18 at 15:30 Miscellaneous Information 1 ea NOTE XX ; Start 12/13/18 at 15:30 Glucose (Glutose) 15 gm Q15M PRN PO DECREASED GLUCOSE; Start 12/13/18 at 15:30 Glucose (Glutose) 22.5 gm Q15M PRN PO DECREASED GLUCOSE; Start 12/13/18 at 15:30 Dextrose (D50w Syringe) 25 ml Q15M PRN IV DECREASED GLUCOSE; Start 12/13/18 at 15:30 Dextrose (D50w Syringe) 50 ml Q15M PRN IV DECREASED GLUCOSE; Start 12/13/18 at 15:30 Glucagon (Glucagen) 1 mg Q15M PRN IM DECREASED GLUCOSE; Start 12/13/18 at 15:30 Glucose (Glutose) 15 gm Q15M PRN BUCCAL DECREASED GLUCOSE; Start 12/13/18 at 15:30 Carbidopa/Levodopa (Sinemet (25/ 100)) 1 tab QID PO ; Start 12/14/18 at 13:00 Olanzapine (Zyprexa) 10 mg DAILY PRN IM agitation Last administered on 12/15/18at 22:07; Admin Dose 10 MG; Start 12/15/18 at 09:00 Ampicillin Sodium/ Sulbactam Sodium 50 ml @ 100 mls/hr Q12 IVPB Last administered on 12/16/18at 10:44; Admin Dose 100 MLS/HR; Start 12/15/18 at 11:00 Aspirin (Aspirin) 81 mg DAILY NV Last administered on 12/15/18at 12:31; Admin Dose 81 MG; Start 12/15/18 at 11:00 Potassium Chloride 100 ml @ 50 mls/hr Q2H IVPB ; Start 12/16/18 at 09:00; Stop 12/16/18 at 12:59 Potassium Chloride/Dextrose 1,000 ml @ 75 mls/hr [id number] IV Last administered on 12/16/18at 10:44; Admin Dose 75 MLS/HR; Start 12/16/18 at 09:30 VTE Prophylaxis Risk score (from [facility])>0 risk: 4 SCD applied (from [facility]): Yes Lines/Catheters IV Catheter Type: Schwartz in Place: Yes Cont'd schwartz catheter reason: urinary retention Assessment/Plan Hospital Course Subjective Patient continues to be agitated at night and was given multiple sedative medications, patient is sleeping now, is arousable but does not stay awake enough to contribute to swallow exam with speech therapy at bedside. Objective Physical exam General: Patient is laying in bed but falls asleep immediately after being aroused Mentation: Patient is arousable but not oriented Head: Normocephalic atraumatic Eyes: EOMI, pupils reactive to light Neck: Supple, nontender, midline Respiratory: Clear to auscultation bilaterally Cardiovascular: regular rate, no obvious murmurs Gastrointestinal: non-tender to palpation, bowel sounds heard. Neurological: Moves all extremities spontaneously, however has some shaking move ments Skin: No new skin lesions Assessment and plan Acute encephalopathy, moderate improvement -May be due to decreased p.o. intake and volume depletion as patient has not been having good intake for the past week and resultant toxic metabolic encephalopathy due to possible uremia -CT negative for acute intracranial issues -MRI showing small caudate CVA, however per neurology this is unlikely the true etiology of all of patient's previous symptoms -IV fluid per nephrology -Questionable seizure activity as patient is shaking a lot however during the shaking episodes patient has coordinated movements and is unlike typical shaking activity, Ativan as needed for seizures -Patient also not taking medication for quite some time as unable to tolerate p.o., IV Zyprexa as needed and IV Depakote for now -Neurology consulted -Nephrology consulted Inability to tolerate p.o. -Secondary to above, speech therapy will reattempt later today, patient is too sleepy and lethargic from sedative medication. -Restart Plavix when patient swallowing after confirming with neurology -If patient unable to tolerate more p.o. for another day will need to consider TPN, patient is not a good candidate for NG tube as patient will definitely pull it out. Shaking/tremor episodes, subsided significantly -Worsening sequelae of Parkinson's and not being able to take his medications versus seizure -Patient does have baseline have some tremor due to his Parkinson's -Treat seizure as needed with Ativan -Neurology consulted -MRI noted for small CVA -EEG pending Right caudate nucleus CVA, 3mm -3 mm per MRI -Rectal aspirin for now until patient can resume his previous Plavix -Unlikely etiology of patient's symptoms per neurology Aspiration pneumonia -Questionable for possible given patient's encephalopathic state -IV Unasyn for now, renally dosed -possible on cxr Acute kidney injury on chronic kidney disease -Patient's baseline is in the 2's per family, but possibly in the 3's after speaking more with the . 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 History of prostate cancer -Monitor Disposition -Patient continues to improve daily. Monitor. Nephrology and neurology recommendations appreciated -We will need to try to avoid first GEN antipsychotics during the night. KASEY AKBAR Dec 16, 2018 11:17
--- NOTE | 2018-12-16 13:16 | RADRPT ---
Echocardiogram Report Patient Name: EVELYN LOYDPatient ID: [id number] : 1935 (83y 1m)Study Date: 12/16/2018 8:46:20 AM Gender: MAccession #: [id number] Tech: Gilson Ellis [facility] Location: [address] Ref.Physician: LEXIE VERA Height(Cm): BSA: Weight(Kg): Quality: Technically Difficult StudyAccount #: Procedures: Echocardiographic Report: Transthoracic echocardiogram with complete 2D, M-Mode, and doppler examination. Indications: Stroke work up. Measurements: 2D/M Mode Doppler Measurement Value Normal Range Measurement Value Normal Range LVIDd 2D 3.3 [ 4.2 - 5.8 ] cm AV Peak Jacques 1.4 [ 100.0 - 170.0 ] cm/sec LVIDs 2D 2.6 [ 2.5 - 4.0 ] cm AV Peak PG 8.0 [ 2.0 - 9.0 ] mmHg LVPWd 2D 0.9 [ 0.6 - 1.0 ] cm AI Peak PG 59.0 mmHg IVSd 2D 1.2 [ 0.6 - 1.0 ] cm AI Peak Jacques 3.8 cm/sec AoR Diam 2D 2.3 [ 2.6 - 3.4 ] cm AI PHT 716.0 msec EDV 2D 45.1 [ 62.0 - 150.0 ] ml LVOT Peak Jacques 0.6 [ 70.0 - 110.0 ] cm/sec ESV 2D 24.6 [ 21.0 - 61.0 ] ml LVOT Peak PG 2.0 [ 2.0 - 6.0 ] mmHg EF 2D 45.5 [ 52.0 - 72.0 ] percent MV E Peak Jacques 0.7 [ 60.0 - 130.0 ] cm/sec LA Dimen 2D 2.4 [ 3.0 - 4.0 ] cm MV A Peak Jacques 1.3 [ 100.0 - 120.0 ] cm/sec MV E/A 0.6 [ 0.8 - 1.5 ] ratio MV Decel Time 257 [ 104 - 258 ] msec Lat E` Jacques 0.1 [ 10.0 - 15.0 ] cm/sec Lateral E/E` 13.0 [ 1.0 - 2.0 ] ratio MV E/A 0.6 [ 0.8 - 1.5 ] ratio TR Peak Jacques 2.8 [ 100.0 - 280.0 ] cm/sec TR Peak PG 31.0 mmHg RVSP 34.0 [ 10.0 - 36.0 ] mmHg Findings: Left Ventricle: Normal left ventricular systolic function. Normal left ventricular wall thickness. Mild hypertrophy of the basal septum. Ejection fraction is visually estimated at 55-60 %. Tissue Doppler/Mitral Doppler indices are consistent with impaired relaxation (Stage I diastolic dysfunction). Right Ventricle: Normal right ventricular size. Normal right ventricular systolic function. Left Atrium: There is mild enlargement of left atrium. Right Atrium: The right atrium is normal in size. Mitral Valve: Mild mitral annular calcification. Mild mitral valve regurgitation. Aortic Valve: Aortic sclerosis without significant stenosis. Mild aortic valve regurgitation. Tricuspid Valve: Normal appearance of the tricuspid valve. Estimated peak PA systolic pressure 34 mmHg. There is mild tricuspid regurgitation. Pulmonic Valve: Normal pulmonic valve appearance. Pericardium: Normal pericardium with no significant pericardial effusion. Aorta: Normal aortic root. IVC: Normal size and normal respiratory collapse consistent with normal right atrial pressure. Conclusions: Normal left ventricular systolic function. Normal left ventricular wall thickness. Mild hypertrophy of the basal septum. Ejection fraction is visually estimated at 55-60 %. Tissue Doppler/Mitral Doppler indices are consistent with impaired relaxation (Stage I diastolic dysfunction). Aortic sclerosis without significant stenosis. Mild aortic valve regurgitation. Estimated peak PA systolic pressure 34 mmHg. Normal size and normal respiratory collapse consistent with normal right atrial pressure. Electronically Signed By: Klaus Cobian 2018-12-16 13:16:15 PDT
[2018-12-16] MEDS: POTASSIUM CHLORIDE 100 ML IVPB SCH ×2 (13:24→14:18)
[2018-12-16] MEDS: VALPROATE INJ 500 MG in SOD CHLORIDE 0.9% 50 ML IVPB SCH (20:58)
[2018-12-16] MEDS: ATORVASTATIN 40 MG TAB PO SCH (21:00)
[2018-12-17] VITALS (11 sets, daily range): BP systolic 141–184; BP diastolic 61–82; PULSE 54–74; RESP 18–20
[2018-12-17] MEDS: INSULIN ASPART [NOVOLOG] 3 ML PEN SC SCH ×6 (01:00→21:27)
[2018-12-17] MEDS: PANTOPRAZOLE 40 MG INJ IV SCH (05:32)
[2018-12-17] MEDS: LABETALOL HCL 20MG INJ IV PRN ×2 (05:35→09:27)
[2018-12-17] MEDS: CARBIDOPA/LEVODOPA (25/100) TAB PO SCH ×4 (09:00→20:59)
[2018-12-17] MEDS: AMLODIPINE 10 MG TAB PO SCH (09:00)
[2018-12-17] MEDS: DOCUSATE SODIUM 250 MG CAP PO SCH (09:00)
[2018-12-17] MEDS: QUETIAPINE 25 MG TAB PO SCH ×2 (09:00→20:59)
[2018-12-17] MEDS: DUTASTERIDE 0.5 MG CAP PO SCH (09:00)
[2018-12-17] MEDS: ASPIRIN 300 MG SUPP PR SCH (09:00)
[2018-12-17] MEDS: AMPICILLIN/SULB 1.5GM/NS (PMX) 50 ML IVPB SCH ×2 (09:33→21:00)
[2018-12-17] MEDS: LEVOTHYROXINE 100 MCG VIAL IV SCH (09:33)
[2018-12-17] MEDS ORDERED: hydrALAzine 20 MG INJ IV PRN (10:30)
--- NOTE | 2018-12-17 11:04 | CONS ---
Assessment/Plan Assessment/Plan Hospital Course 83 M w/ Parkinson's Disease, who presents for evaluation of ams and heightened tremors. BUN/Cr elevated; baseline is presently unknown.. Perhaps an acute toxic-metabolic on chronic encephalopathy.. MRI brain is notable for a tiny and acute L caudate head infarct...which is likely without clinical consequence... EEG is without epileptiform activity. CUS is unremarkable LDL 64, coags wnl ESR 78; RPR neg Echo is unrevealing. P: Resume Plavix 75mg daily per ops for the same when medically able; LDL is at goal.. Resume Sinemet 25/100 mg 1 tab qid when able [place] as able Avoid 1st gen dopamine antagonists where possible PT/OT/ST as necessary Other medical workup management per primary Will follow clinically Consultation Date/Type/Reason Admit Date/Time Dec 13, 2018 at 14:40 Type of Consult Neurology Reason for Consultation worsening ams Requesting Provider: KASEY AKBAR Date/Time of Note DATE: 12/17/18 TIME: 11:04 24 HR Interval Summary Free Text/Dictation Continues acute care. Exam Vital Signs Vitals Vital Signs Date Temp Pulse Resp B/P (MAP) Pulse Ox O2 O2 Flow FiO2 Time Delivery Rate 12/17/18 66 08:19 12/17/18 97.5 20 173/79 100 07:27 (110) 12/16/18 Nasal 2.0 20:06 Cannula Intake and Output 12/16/18 12/16/18 12/17/18 1515:00 23:00 07:00 IntakeIntake Total 1755 ml OutputOutput Total 1000 ml BalanceBalance 755 ml Exam PE: Gen Appearance: Calm, NAD HEENT: Normocephalic Cardiovascular: Regular rate Abdomen: Soft Extremities: Dry NE: The patient was asleep, though arousable to voice. Sparsely verbal. Follows simple axial and appendicular commands. Cranial nerve examination was limited by mental status. Pupils were equal and re active to light. There was no afferent pupillary defect. Funduscopic examination was limited. Face was grossly symmetric, w/ present corneal and cough reflexes. Tone was increased in the upper extremities (L>R). Muscle bulk was normal. I did not see fasciculations. The pt had spontaneous movement of his extremities. Coordination and gait testing was limited by mental status. Arm and leg reflexes were within normal limits and symmetric. Carreon's sign was absent. Plantar responses were flexor. LEXIE VERA NP Dec 17, 2018 11:04 JAMILA SALAZAR Dec 17, 2018 13:15
--- NOTE | 2018-12-17 14:09 | PN ---
DATE: 12/17/2018 SUBJECTIVE: The patient remains stable. The patient is more alert, less confused. No other events noted. OBJECTIVE: VITAL SIGNS: Blood pressure is 173/79, pulse 66, temperature 97.5. HEENT: Head is normocephalic. NECK: Supple. HEART: Regular rate. LUNGS: Show diminished breath sounds at the base. ABDOMEN: Soft, nontender to palpation. No rebound or guarding. EXTREMITIES: Negative for clubbing, cyanosis. No edema. DERMATOLOGIC: No rashes. MUSCULOSKELETAL: No joint effusions. NEUROLOGIC: No change in exam. MEDICATIONS: The patient's medications have been reviewed. LABORATORY DATA: Has been reviewed. The patient has a BUN of 26, creatinine 3.26. ASSESSMENT AND PLAN: 1. Nonoliguric acute kidney injury on top of chronic kidney disease (CKD), stage 4, with previous ba seline creatinine 2.4 to 2.8 mg/dL. Etiology of acute kidney injury is secondary to hemodynamics, po ssible . The patient's renal function has improved in the last 24 hours. At this point, contin ue current treatment plans, supportive care, renally dose all medications. The patient remains on in travenous (IV) fluids. We will de-escalate a lower rate. 3. Hypernatremia, improved. 4. Hypokalemia. Continue to monitor and replete as needed. 5. Hypertension. Continue current blood pressure regimen. 6. Anemia. Monitor hemoglobin and hematocrit levels. 7. Benign prostatic hypertrophy (BPH). Continue medical management. 8. Acute cerebrovascular accident (CVA). Continue current treatment plan. 9. Encephalopathy. Etiology is multifactorial secondary to cerebrovascular accident (CVA), dementia , Parkinson disease, and medications. The patient's mental status appears to be improving. Continue to monitor. 10. Diabetes. Continue current insulin regimen. 11. Hypothyroidism. Continue Synthroid. Dictated By: OUMOU MCNULTY DO NR/NELLA Conf#: [id number] DID#: [id number] CC: KASEY AKBAR MD;*EndCC*
[2018-12-17] MEDS: D5W + KCL 20 MEQ 1,000 ML IV SCH (14:27)
--- NOTE | 2018-12-17 16:50 | PN ---
Date/Time of Note Date/Time of Note DATE: 12/17/18 TIME: 16:33 Assessment/Plan VTE Prophylaxis Risk score (from Nsg)>0 risk: 7 SCD applied (from Nsg): Yes Pharmacological prophylaxis: other Lines/Catheters IV Catheter Type (from Nrsg): Peripheral IV Urinary Cath still in place: Yes Reason Cath still needed: urinary retention Assessment/Plan Assessment/Plan 1. Acute encephalopathy- resolved - Per , patient is back to baseline this am. - CT negative for acute intracranial issues - MRI showing small caudate CVA, however per neurology this is unlikely the true etiology of all of patient's previous symptoms - Neurology consultation appreciated 2. Dysphagia - Speech on board and okay to advance to full liquids. - restart PO medications 3. Parkinson's tremors - resolved - continue home medications - neurology on board 4. Right caudate nucleus CVA, 3mm - 3 mm per MRI - Resume Plavix 5. Acute kidney injury on chronic kidney disease - Nephrology on board and appreciate recommendations - most likely postobstructive given retention noted in ED 6. Diabetes mellitus - Insulin sliding scale 7. BPH - Continue meds 8. Hypertension - continue Norvasc and will add Hydralazine given bradycardia 9. 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 History of CVA - Plavix on board 11. Hypothyroidism - levothyroxine 12. History of prostate cancer -Monitor 13. Disposition - Advancing diet as tolerated - PT/OT - will need better blood pressure control prior to d/c Result Diagram: 12/17/1822 12/17/1822 Results 24hrs Laboratory Tests Test 12/16/18 17:37 12/16/18 20:52 12/17/18 00:59 12/17/18 05:40 Bedside Glucose 130 161 136 176 Test 12/17/18 06:22 12/17/18 09:26 12/17/18 12:36 White Blood Count 4.2 L Red Blood Count 3.19 L Hemoglobin 10.0 L Hematocrit 31.0 L Mean Corpuscular 97.2 Volume Mean Corpuscular 31.3 Hemoglobin Mean Corpuscular 32.3 Hemoglobin Concent Red Cell 12.6 Distribution Width Platelet Count 106 L Mean Platelet Volume 13.5 H Immature 0.700 H Granulocytes % Neutrophils % 71.5 Lymphocytes % 17.0 Monocytes % 7.2 Eosinophils % 2.6 Basophils % 1.0 Nucleated Red Blood 0.0 Cells % Immature 0.030 Granulocytes # Neutrophils # 3.0 Lymphocytes # 0.7 L Monocytes # 0.3 Eosinophils # 0.1 Basophils # 0.0 Nucleated Red Blood 0.0 Cells # Sodium Level 142 Potassium Level 3.9 Chloride Level 105 Carbon Dioxide Level 25 Anion Gap 12 Blood Urea Nitrogen 26 H Creatinine 3.26 H Est Glomerular Filtrat Rate mL/min Glucose Level 172 Calcium Level 9.2 Phosphorus Level 3.3 Magnesium Level 2.1 Bedside Glucose 177 138 Subjective 24 Hr Interval Summary Free Text/Dictation Patient back to baseline and at bedside. Requesting to eat and discussed need to wait for speech therapy. Exam/Review of Systems Exam Vitals Vital Signs Date Temp Pulse Resp B/P (MAP) Pulse Ox O2 O2 Flow FiO2 Time Delivery Rate 12/17/18 97.5 58 20 182/82 93 15:53 (115) 12/16/18 Nasal 2.0 20:06 Cannula Intake and Output 12/16/18 12/16/18 12/17/18 1515:00 23:00 07:00 IntakeIntake Total 1755 ml OutputOutput Total 1000 ml BalanceBalance 755 ml Exam General: Patient is laying in bed. no acute distress. answering questions appropriately Neck: Supple, nontender, midline Respiratory: Clear to auscultation bilaterally. no wheezing Cardiovascular: regular rate and rhythm, no obvious murmurs Gastrointestinal: soft, non-tender to palpation, bowel sounds heard. Neurological: Moves all extremities spontaneously, no tremors appreciated Skin: No new skin lesions Results Results 24hrs Laboratory Tests Test 12/16/18 17:37 12/16/18 20:52 12/17/18 00:59 12/17/18 05:40 Bedside Glucose 130 161 136 176 Test 12/17/18 06:22 12/17/18 09:26 12/17/18 12:36 White Blood Count 4.2 L Red Blood Count 3.19 L Hemoglobin 10.0 L Hematocrit 31.0 L Mean Corpuscular 97.2 Volume Mean Corpuscular 31.3 Hemoglobin Mean Corpuscular 32.3 Hemoglobin Concent Red Cell 12.6 Distribution Width Platelet Count 106 L Mean Platelet Volume 13.5 H Immature 0.700 H Granulocytes % Neutrophils % 71.5 Lymphocytes % 17.0 Monocytes % 7.2 Eosinophils % 2.6 Basophils % 1.0 Nucleated Red Blood 0.0 Cells % Immature 0.030 Granulocytes # Neutrophils # 3.0 Lymphocytes # 0.7 L Monocytes # 0.3 Eosinophils # 0.1 Basophils # 0.0 Nucleated Red Blood 0.0 Cells # Sodium Level 142 Potassium Level 3.9 Chloride Level 105 Carbon Dioxide Level 25 Anion Gap 12 Blood Urea Nitrogen 26 H Creatinine 3.26 H Est Glomerular Filtrat Rate mL/min Glucose Level 172 Calcium Level 9.2 Phosphorus Level 3.3 Magnesium Level 2.1 Bedside Glucose 177 138 Medications Medication Current Medications IV Flush (NS 3 ml) 3 ml PER PROTOCOL IV ; Start 12/13/18 at 15:00 Ondansetron HCl (Zofran Inj) 4 mg Q6H PRN IV NAUSEA/VOMITING; Start 12/13/18 at 15:00 Acetaminophen (Tylenol Tab) 650 mg Q6H PRN PO .PAIN 1-3 OR TEMP; Start 12/13/18 at 15:00 Acetaminophen/ Hydrocodone Bitart ([place] (5/325)) 1 tab Q6H PRN PO .PAIN 4-6; Start 12/13/18 at 15:00 Morphine Sulfate (morphine) 2 mg Q4H PRN IV .PAIN 7-10 Last administered on 12/14/18at 23:29; Admin Dose 2 MG; Start 12/13/18 at 15:00 Pantoprazole (Protonix Iv) 40 mg DAILY@06 IV Last administered on 12/17/18at 05:32; Admin Dose 40 MG; Start 12/14/18 at 06:00 Amlodipine Besylate (Norvasc) 10 mg DAILY PO ; Start 12/14/18 at 09:00 Atorvastatin Calcium (Lipitor) 40 mg QHS PO ; Start 12/13/18 at 21:00 Clopidogrel Bisulfate (plaVIX) 75 mg DAILY PO ; Start 12/14/18 at 09:00; Status Hold Docusate Sodium (Colace) 250 mg BID PO ; Start 12/13/18 at 21:00 Dutasteride (Avodart) 0.5 mg DAILY PO ; Start 12/14/18 at 09:00 Quetiapine Fumarate (Seroquel) 12.5 mg BID PO ; Start 12/13/18 at 21:00 Lorazepam (Ativan) 2 mg Q10MIN PRN IV seizure; Start 12/13/18 at 15:00 Insulin Aspart (Novolog Insulin Pen) NOVOLOG *MILD* ALGORITHM Q4 SC Last administered on 12/17/18 09:31; Admin Dose 1 UNIT; Start 12/13/18 at 18:00 Labetalol HCl (Labetalol) 10 mg Q4H PRN IV sbp >160 Last administered on 12/17/18 09:27; Admin Dose 10 MG; Start 12/13/18 at 15:30 Lorazepam (Ativan) 1 mg Q6H PRN IV agitation; Start 12/13/18 at 15:30 Valproate Sodium 500 mg/Sodium Chloride 55 ml @ 55 mls/hr QHS IVPB Last administered on 12/16/18at 20:58; Admin Dose 55 MLS/HR; Start 12/13/18 at 21:00 Levothyroxine Sodium (Synthroid Iv) 17 mcg DAILY IV Last administered on 12/17/18 09:33; Admin Dose 17 MCG; Start 12/13/18 at 15:30 Miscellaneous Information 1 ea NOTE XX ; Start 12/13/18 at 15:30 Glucose (Glutose) 15 gm Q15M PRN PO DECREASED GLUCOSE; Start 12/13/18 at 15:30 Glucose (Glutose) 22.5 gm Q15M PRN PO DECREASED GLUCOSE; Start 12/13/18 at 15:30 Dextrose (D50w Syringe) 25 ml Q15M PRN IV DECREASED GLUCOSE; Start 12/13/18 at 15:30 Dextrose (D50w Syringe) 50 ml Q15M PRN IV DECREASED GLUCOSE; Start 12/13/18 at 15:30 Glucagon (Glucagen) 1 mg Q15M PRN IM DECREASED GLUCOSE; Start 12/13/18 at 15:30 Glucose (Glutose) 15 gm Q15M PRN BUCCAL DECREASED GLUCOSE; Start 12/13/18 at 15:30 Carbidopa/Levodopa (Sinemet (25/ 100)) 1 tab QID PO ; Start 12/14/18 at 13:00 Olanzapine (Zyprexa) 10 mg DAILY PRN IM agitation Last administered on 12/15/18at 22:07; Admin Dose 10 MG; Start 12/15/18 at 09:00 Ampicillin Sodium/ Sulbactam Sodium 50 ml @ 100 mls/hr Q12 IVPB Last administered on 4/16/19at 09:33; Admin Dose 100 MLS/HR; Start 12/15/18 at 11:00 Aspirin (Aspirin) 81 mg DAILY DC Last administered on 12/15/18at 12:31; Admin Dose 81 MG; Start 12/15/18 at 11:00 Potassium Chloride/Dextrose 1,000 ml @ 40 mls/hr Q24H IV Last administered on 12/16/18at 10:44; Admin Dose 75 MLS/HR; Start 12/16/18 at 09:30 Hydralazine HCl (Apresoline) 10 mg Q4H PRN IV SBP >170; Start 12/17/18 at 10:30 ALEJANDRA MOSQUEDA MD Dec 17, 2018 16:50
[2018-12-17] MEDS ORDERED: HALOPERIDOL 1 MG TAB PO PRN (17:00)
[2018-12-17] MEDS ORDERED: HALOPERIDOL 5 MG INJ IM PRN (17:00)
[2018-12-17] MEDS: DOCUSATE SODIUM 10 MG/ML (10ML CUP) PO SCH (20:59)
[2018-12-17] MEDS: ATORVASTATIN 40 MG TAB PO SCH (20:59)
[2018-12-17] MEDS: DIVALPROEX (ER) 500 MG TAB PO SCH (21:00)
[2018-12-18] VITALS (12 sets, daily range): BP systolic 139–167; BP diastolic 65–82; PULSE 58–79; RESP 16–20
[2018-12-18] MEDS: INSULIN ASPART [NOVOLOG] 3 ML PEN SC SCH ×6 (01:00→21:25)
[2018-12-18] MEDS: D5W + KCL 20 MEQ 1,000 ML IV SCH (04:57)
[2018-12-18] MEDS: LANSOPRAZOLE 30 MG CAP PO SCH (05:36)
[2018-12-18] MEDS: LEVOTHYROXINE 25 MCG TAB PO SCH (05:36)
[2018-12-18] MEDS: AMLODIPINE 10 MG TAB PO SCH (08:13)
[2018-12-18] MEDS: QUETIAPINE 25 MG TAB PO SCH ×2 (08:13→21:03)
[2018-12-18] MEDS: CARBIDOPA/LEVODOPA (25/100) TAB PO SCH ×4 (08:13→21:03)
[2018-12-18] MEDS: AMPICILLIN/SULB 1.5GM/NS (PMX) 50 ML IVPB SCH ×2 (08:30→21:16)
[2018-12-18] MEDS: DUTASTERIDE 0.5 MG CAP PO SCH (09:00)
[2018-12-18] MEDS ORDERED: POTASSIUM CHLORIDE 20 MEQ POWDER FOR ORAL SOLN PO ONE (09:00)
[2018-12-18] MEDS: DOCUSATE SODIUM 10 MG/ML (10ML CUP) PO SCH ×2 (09:00→21:02)
[2018-12-18] MEDS: ASPIRIN 300 MG SUPP PR SCH (09:00)
--- NOTE | 2018-12-18 09:45 | PN ---
DATE: 12/18/2018 SUBJECTIVE: The patient remains confused. No other acute events noted. No hemoptysis, hematemesis or hematochezia. OBJECTIVE: VITAL SIGNS: Blood pressure is 165/73, pulse 65, respirations 20, temperature 97.8. HEENT: Head is normocephalic. NECK: Supple. HEART: Regular rate. LUNGS: Show diminished breath sounds at the base. ABDOMEN: Soft, nontender to palpation without rebound or guarding. EXTREMITIES: Negative for clubbing, cyanosis, no edema. DERMATOLOGIC: No rashes. MUSCULOSKELETAL: No joint effusion. NEUROLOGIC: No change in exam. MEDICATIONS: Reviewed. LABORATORY DATA: Reviewed. ASSESSMENT AND PLAN: 1. Nonoliguric acute kidney injury on top of chronic kidney disease stage IV with previous baseline creatinine of 2.4 to 2.5 mg/dL. Etiology of acute kidney injury is secondary to hemodynamics, possib le tubular injury. Renal function has slowly been improving. Continue current treatment plans, supp ortive care, renally dose all medicines. We will discontinue IV fluids. 2. Hypernatremia, improved. 3. Hyperkalemia, improved. Continue to monitor. 4. Hypertension. Continue current blood pressure regimen. Defer SHOBHA inhibitor or ARB at this time. 5. Anemia. Monitor hemoglobin and hematocrit levels. 6. Benign prostatic hypertrophy. Continue medical management. 7. Acute cerebrovascular accident. Continue current treatment plan. 8. Encephalopathy, etiology is likely secondary to acute cerebrovascular accident, dementia, [place] son's disease, medications. Continue to monitor. 9. Diabetes. Continue current insulin regimen. 10. Hypothyroidism. Continue Synthroid. 11. History of Parkinson disease. Continue medical management. Dictated By: OUMOU MCNULTY DO NR/NTS Conf#: [id number] DID#: [id number] CC: KASEY AKBAR MD; JAMILA SALAZAR; ALEJANDRA MOSQUEDA MD;*End*
[2018-12-18] MEDS: CLOPIDOGREL 75 MG TAB PO SCH (10:17)
--- NOTE | 2018-12-18 14:00 | CONS ---
Assessment/Plan Assessment/Plan Hospital Course 83 M w/ Parkinson's Disease, who presents for evaluation of ams and heightened tremors. BUN/Cr elevated; baseline is presently unknown.. Perhaps an acute toxic-metabolic on chronic encephalopathy...with concomitant dyskinesias MRI brain is notable for a tiny and acute L caudate head infarct...which is likely without clinical consequence... EEG is without epileptiform activity. CUS is unremarkable LDL 64, coags wnl ESR 78; RPR neg Echo is unrevealing. P: Cont Plavix 75mg daily per ops for secondary stroke prevention; LDL is at goal.. Cont Sinemet 25/100 mg 1 tab qid for now [place] as able PT/OT/ST as necessary Other medical workup management per primary Will follow clinically Consultation Date/Type/Reason Admit Date/Time Dec 13, 2018 at 14:40 Type of Consult Neurology Requesting Provider: KASEY AKBAR Date/Time of Note DATE: 12/18/18 TIME: 14:00 24 HR Interval Summary Free Text/Dictation Continues acute care. at bedside states that he has improved greatly. Is tolerating puree diet and medications. Exam Vital Signs Vitals Vital Signs Date Temp Pulse Resp B/P (MAP) Pulse Ox O2 O2 Flow FiO2 Time Delivery Rate 12/18/18 63 13:17 12/18/18 97.8 20 150/66 98 Room Air 10:55 (94) 12/16/18 2.0 20:06 Intake and Output 12/17/18 12/17/18 12/18/18 1515:00 23:00 07:00 IntakeIntake Total 0 ml 250 ml 200 ml OutputOutput Total 950 ml 850 ml 400 ml BalanceBalance -950 ml -600 ml -200 ml Exam PE: Gen Appearance: Calm, NAD HEENT: Normocephalic Cardiovascular: Regular rate Abdomen: Soft Extremities: Dry NE: The patient was awake and alert. Sparsely verbal. Follows simple axial and appendicular commands. Cranial nerve examination was limited by mental status. Pupils were equal and reactive to light. There was no afferent pupillary defect. Funduscopic examination was limited. Face was grossly symmetric, w/ present corneal and cough reflexes. Tone was increased in the upper extremities. Muscle bulk was normal. I did not see fasciculations. The pt had spontaneous movement of his extremities. Coordination and gait testing was limited by mental status. Arm and leg reflexes were within normal limits and symmetric. Carreon's sign was absent. Plantar responses were flexor. JAMILA SALAZAR Dec 18, 2018 14:00 LEXIE VERA NP Dec 18, 2018 16:00
[2018-12-18] MEDS: ASPIRIN 81 MG TAB PO SCH (14:07)
--- NOTE | 2018-12-18 16:18 | PN ---
Date/Time of Note Date/Time of Note DATE: 12/18/18 TIME: 16:09 Assessment/Plan VTE Prophylaxis Risk score (from Ns)>0 risk: 5 SCD applied (from Ns): Yes Pharmacological prophylaxis: other Lines/Catheters IV Catheter Type (from Nrs): Saline Lock Urinary Cath still in place: No Assessment/Plan Assessment/Plan 1. Acute encephalopathy- resolved - CT negative for acute intracranial issues - MRI showing small caudate CVA, however per neurology this is unlikely the true etiology of all of patient's previous symptoms - Neurology consultation appreciated 2. Dysphagia - Speech on board and okay to advance to full liquids 3. Parkinson's tremors - resolved - continue home medications - neurology on board 4. 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 Acute kidney injury on chronic kidney disease- improving - Nephrology on board and appreciate recommendations - most likely postobstructive given retention noted in ED 6. Diabetes mellitus - Insulin sliding scale 7. BPH - Continue meds 8. Hypertension - continue Norvasc and will add Hydralazine given bradycardia 9. 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 History of CVA - Plavix on board 11. Hypothyroidism - levothyroxine 12. History of prostate cancer -Monitor 13. Disposition - SNF placement Result Diagram: 12/18/18 0636 12/18/18 0636 Results 24hrs Laboratory Tests Test 12/17/18 17:51 12/17/18 21:06 12/18/18 01:35 12/18/18 04:54 Bedside Glucose 201 201 158 195 Test 12/18/18 06:36 12/18/18 07:57 12/18/18 12:06 12/18/18 14:05 White Blood Count 4.2 L Red Blood Count 3.20 L Hemoglobin 10.2 L Hematocrit 31.2 L Mean Corpuscular 97.5 Volume Mean Corpuscular 31.9 Hemoglobin Mean Corpuscular 32.7 Hemoglobin Concent Red Cell 12.8 Distribution Width Platelet Count 113 L Mean Platelet Volume 13.6 H Immature 0.700 H Granulocytes % Neutrophils % 69.7 Lymphocytes % 17.5 Monocytes % 8.3 Eosinophils % 3.3 Basophils % 0.5 Nucleated Red Blood 0.0 Cells % Immature 0.030 Granulocytes # Neutrophils # 3.0 Lymphocytes # 0.7 L Monocytes # 0.4 Eosinophils # 0.1 Basophils # 0.0 Nucleated Red Blood 0.0 Cells # Sodium Level 141 Potassium Level 3.5 Chloride Level 103 Carbon Dioxide Level 27 Anion Gap 11 Blood Urea Nitrogen 24 H Creatinine 3.13 H Est Glomerular Filtrat Rate mL/min Glucose Level 123 # Calcium Level 9.3 Phosphorus Level 3.7 Magnesium Level 2.2 Bedside Glucose 140 187 188 Subjective 24 Hr Interval Summary Free Text/Dictation Per patient was restless all yesterday and did not sleep well. Currently sleeping and in no acute distress. Exam/Review of Systems Exam Vitals Vital Signs Date Temp Pulse Resp B/P (MAP) Pulse Ox O2 O2 Flow FiO2 Time Delivery Rate 12/18/18 97.7 65 20 151/65 98 Room Air 15:09 (93) 12/16/18 2.0 20:06 Intake and Output 12/17/18 12/17/18 12/18/18 1414:59 22:59 06:59 IntakeIntake Total 0 ml 250 ml 200 ml OutputOutput Total 950 ml 850 ml 400 ml BalanceBalance -950 ml -600 ml -200 ml Exam General: Patient is laying in bed. no acute distress Neck: Supple Respiratory: Clear to auscultation bilaterally. no wheezing Cardiovascular: regular rate and rhythm, no obvious murmurs Gastrointestinal: soft, non-tender to palpation, bowel sounds heard. Neurological: Moves all extremities spontaneously, no tremors appreciated Skin: No new skin lesions Results Results 24hrs Laboratory Tests Test 12/17/18 17:51 12/17/18 21:06 12/18/18 01:35 12/18/18 04:54 Bedside Glucose 201 201 158 195 Test 12/18/18 06:36 12/18/18 07:57 12/18/18 12:06 12/18/18 14:05 White Blood Count 4.2 L Red Blood Count 3.20 L Hemoglobin 10.2 L Hematocrit 31.2 L Mean Corpuscular 97.5 Volume Mean Corpuscular 31.9 Hemoglobin Mean Corpuscular 32.7 Hemoglobin Concent Red Cell 12.8 Distribution Width Platelet Count 113 L Mean Platelet Volume 13.6 H Immature 0.700 H Granulocytes % Neutrophils % 69.7 Lymphocytes % 17.5 Monocytes % 8.3 Eosinophils % 3.3 Basophils % 0.5 Nucleated Red Blood 0.0 Cells % Immature 0.030 Granulocytes # Neutrophils # 3.0 Lymphocytes # 0.7 L Monocytes # 0.4 Eosinophils # 0.1 Basophils # 0.0 Nucleated Red Blood 0.0 Cells # Sodium Level 141 Potassium Level 3.5 Chloride Level 103 Carbon Dioxide Level 27 Anion Gap 11 Blood Urea Nitrogen 24 H Creatinine 3.13 H Est Glomerular Filtrat Rate mL/min Glucose Level 123 # Calcium Level 9.3 Phosphorus Level 3.7 Magnesium Level 2.2 Bedside Glucose 140 187 188 Medications Medication Current Medications IV Flush (NS 3 ml) 3 ml PER PROTOCOL IV ; Start 12/13/18 at 15:00 Ondansetron HCl (Zofran Inj) 4 mg Q6H PRN IV NAUSEA/VOMITING; Start 12/13/18 at 15:00 Acetaminophen (Tylenol Tab) 650 mg Q6H PRN PO .PAIN 1-3 OR TEMP; Start 12/13/18 at 15:00 Acetaminophen/ Hydrocodone Bitart ([place] (5/325)) 1 tab Q6H PRN PO .PAIN 4-6; Start 12/13/18 at 15:00 Morphine Sulfate (morphine) 2 mg Q4H PRN IV .PAIN 7-10 Last administered on 12/14/18at 23:29; Admin Dose 2 MG; Start 12/13/18 at 15:00 Amlodipine Besylate (Norvasc) 10 mg DAILY PO Last administered on 12/18/18at 08:13; Admin Dose 10 MG; Start 12/14/18 at 09:00 Atorvastatin Calcium (Lipitor) 40 mg QHS PO Last administered on 12/17/18at 20:59; Admin Dose 40 MG; Start 12/13/18 at 21:00 Clopidogrel Bisulfate (plaVIX) 75 mg DAILY PO Last administered on 12/18/18at 10:17; Admin Dose 75 MG; Start 12/14/18 at 09:00 Dutasteride (Avodart) 0.5 mg DAILY PO ; Start 12/14/18 at 09:00 Quetiapine Fumarate (Seroquel) 12.5 mg BID PO Last administered on 12/18/18at 08:13; Admin Dose 12.5 MG; Start 12/13/18 at 21:00 Insulin Aspart (Novolog Insulin Pen) NOVOLOG *MILD* ALGORITHM Q4 SC Last administered on 12/18/18at 14:10; Admin Dose 2 UNIT; Start 12/13/18 at 18:00 Labetalol HCl (Labetalol) 10 mg Q4H PRN IV sbp >160 Last administered on 12/17/18at 09:27; Admin Dose 10 MG; Start 12/13/18 at 15:30 Miscellaneous Information 1 ea NOTE XX ; Start 12/13/18 at 15:30 Glucose (Glutose) 15 gm Q15M PRN PO DECREASED GLUCOSE; Start 12/13/18 at 15:30 Glucose (Glutose) 22.5 gm Q15M PRN PO DECREASED GLUCOSE; Start 12/13/18 at 15:30 Dextrose (D50w Syringe) 25 ml Q15M PRN IV DECREASED GLUCOSE; Start 12/13/18 at 15:30 Dextrose (D50w Syringe) 50 ml Q15M PRN IV DECREASED GLUCOSE; Start 12/13/18 at 15:30 Glucagon (Glucagen) 1 mg Q15M PRN IM DECREASED GLUCOSE; Start 12/13/18 at 15:30 Glucose (Glutose) 15 gm Q15M PRN BUCCAL DECREASED GLUCOSE; Start 12/13/18 at 15:30 Carbidopa/Levodopa (Sinemet (25/ 100)) 1 tab QID PO Last administered on 12/18/18at 14:07; Admin Dose 1 TAB; Start 12/14/18 at 13:00 Olanzapine (Zyprexa) 10 mg DAILY PRN IM agitation Last administered on 12/15/18at 22:07; Admin Dose 10 MG; Start 12/15/18 at 09:00 Ampicillin Sodium/ Sulbactam Sodium 50 ml @ 100 mls/hr Q12 IVPB Last administered on 12/18/18at 08:30; Admin Dose 100 MLS/HR; Start 12/15/18 at 11:00 Hydralazine HCl (Apresoline) 10 mg Q4H PRN IV SBP >170 Last administered on 12/17/18at 16:37; Admin Dose 10 MG; Start 12/17/18 at 10:30 Haloperidol (Haldol) 2 mg Q4H PRN IM severe agitation; Start 12/17/18 at 17:00 Divalproex Sodium (Depakote Er) 500 mg QHS PO Last administered on 12/17/18at 21:00; Admin Dose 500 MG; Start 12/17/18 at 21:00 Hydralazine HCl (Apresoline) 25 mg TID PO Last administered on 12/18/18 14:07; Admin Dose 25 MG; Start 12/17/18 at 21:00 Levothyroxine Sodium (Synthroid) 25 mcg DAILY@06 PO Last administered on 12/18/18 05:36; Admin Dose 25 MCG; Start 12/18/18 at 06:00 Lansoprazole (Prevacid) 30 mg DAILY@06 PO Last administered on 12/18/18at 05:36; Admin Dose 30 MG; Start 12/18/18 at 06:00 Docusate Sodium (Colace Liquid Cup) 250 mg BID PO Last administered on 12/17/18at 20:59; Admin Dose 250 MG; Start 12/17/18 at 21:00 Aspirin (Aspirin) 81 mg DAILY PO Last administered on 12/18/18at 14:07; Admin Dose 81 MG; Start 12/18/18 at 12:30 ALEJANDRA MOSQUEDA MD Dec 18, 2018 16:18
[2018-12-18] MEDS ORDERED: traZODone 50 MG TAB PO ONE (21:00)
[2018-12-18] MEDS: ATORVASTATIN 40 MG TAB PO SCH (21:02)
[2018-12-18] MEDS: DIVALPROEX (ER) 500 MG TAB PO SCH (21:03)
[2018-12-19] VITALS (9 sets, daily range): BP systolic 136–162; BP diastolic 64–75; PULSE 60–91; RESP 18–20
[2018-12-19] MEDS: LEVOTHYROXINE 25 MCG TAB PO SCH (05:58)
[2018-12-19] MEDS: LANSOPRAZOLE 30 MG CAP PO SCH (05:58)
[2018-12-19] MEDS: INSULIN ASPART [NOVOLOG] 3 ML PEN SC SCH ×4 (08:03→20:13)
[2018-12-19] MEDS: CLOPIDOGREL 75 MG TAB PO SCH (08:21)
[2018-12-19] MEDS: AMLODIPINE 10 MG TAB PO SCH (08:21)
[2018-12-19] MEDS: CARBIDOPA/LEVODOPA (25/100) TAB PO SCH ×4 (08:21→20:21)
[2018-12-19] MEDS: DUTASTERIDE 0.5 MG CAP PO SCH (08:21)
[2018-12-19] MEDS: ASPIRIN 81 MG TAB PO SCH (08:21)
[2018-12-19] MEDS: QUETIAPINE 25 MG TAB PO SCH ×2 (08:21→20:19)
[2018-12-19] MEDS: AMPICILLIN/SULB 1.5GM/NS (PMX) 50 ML IVPB SCH (08:22)
[2018-12-19] MEDS: DOCUSATE SODIUM 10 MG/ML (10ML CUP) PO SCH ×2 (08:22→20:18)
--- NOTE | 2018-12-19 09:24 | PN ---
DATE: 12/19/2018 SUBJECTIVE: The patient remains confused, agitated overnight. No other events noted. OBJECTIVE: VITAL SIGNS: Blood pressure is 162/75, respirations 20, pulse 69, temperature 97.7. HEENT: Head is normocephalic. NECK: Supple. HEART: Regular rate. LUNGS: Show diminished breath sounds at the base. ABDOMEN: Soft, nontender to palpation without rebound or guarding. EXTREMITIES: Negative for clubbing, cyanosis, no edema. DERMATOLOGIC: No rashes. MUSCULOSKELETAL: No joint effusion. NEUROLOGIC: No change in exam. MEDICATIONS: The patient's medications have been reviewed. LABORATORY DATA: Has been reviewed. MEDICATIONS: Have been reviewed. ASSESSMENT AND PLAN: 1. Nonoliguric acute kidney injury on top of chronic kidney disease stage IV with previous baseline creatinine around 2.4 to 2.5 mg/dL. Etiology of acute kidney injury is secondary to hemodynamics, po ssible tubular injury. The patient's renal function has slowly been improving. At this point, char[place] love current treatment plan, supportive care, renally dose all meds. 2. Hypernatremia, improved. 3. Hyperkalemia, improved. 4. Hypertension. Continue current blood pressure regimen. Defer SHOBHA inhibitor or ARB at this time. 5. Anemia. Monitor hemoglobin and hematocrit levels. 6. Benign prostatic hypertrophy. Continue medical management. 7. Acute cerebrovascular accident. Continue current treatment plan. 8. Encephalopathy, etiology is likely multifactorial secondary to acute cerebrovascular, dementia, [place] disease. Continue to monitor. 9. Parkinson's syndrome. Continue medical management. 10. Hypothyroidism. Continue Synthroid. 11. Diabetes. Continue current insulin regimen. 12. Dysphagia. Continue modified diet. Dictated By: OUMOU MCNULTY DO NR/NTS Conf#: [id number] DID#: [id number] CC: KASEY AKBAR MD;*EndCC*
--- NOTE | 2018-12-19 11:15 | CONS ---
Assessment/Plan Assessment/Plan Hospital Course 83 M w/ Parkinson's Disease, who presents for evaluation of ams and heightened tremors. BUN/Cr elevated; baseline is presently unknown.. Perhaps an acute toxic-metabolic on chronic encephalopathy...with concomitant dyskinesias MRI brain is notable for a tiny and acute L caudate head infarct...which is likely without clinical consequence... EEG is without epileptiform activity. CUS is unremarkable LDL 64, coags wnl ESR 78; RPR neg Echo is unrevealing. P: Cont Plavix 75mg daily per ops for secondary stroke prevention; LDL is at goal.. Cont Sinemet 25/100 mg 1 tab qid for now [place] as able PT/OT/ST as necessary Other medical management per primary Will follow Consultation Date/Type/Reason Admit Date/Time Dec 13, 2018 at 14:40 Type of Consult Neurology Reason for Consultation worsening ams Requesting Provider: KASEY AKBAR Date/Time of Note DATE: 12/19/18 TIME: 11:15 24 HR Interval Summary Free Text/Dictation Continues acute care. Exam Vital Signs Vitals Vital Signs Date Temp Pulse Resp B/P (MAP) Pulse Ox O2 O2 Flow FiO2 Time Delivery Rate 12/19/18 67 08:09 12/19/18 97.7 20 162/75 100 Room Air 07:38 (104) 12/16/18 2.0 20:06 Intake and Output 12/18/18 12/18/18 12/19/18 1515:00 23:00 07:00 IntakeIntake Total 610 ml 530 ml 200 ml OutputOutput Total 500 ml 350 ml BalanceBalance 610 ml 30 ml -150 ml Exam PE: Gen Appearance: Calm, NAD HEENT: Normocephalic Cardiovascular: Regular rate Abdomen: Soft Extremities: Dry NE: The patient was asleep though easily arousable to voice. Sparsely verbal. Follows simple axial and appendicular commands. Cranial nerve examination was limited by mental status. Pupils were equal and reactive to light. There was no afferent pupillary defect. Funduscopic examination was limited. Face was grossly symmetric, w/ present corneal and c ough reflexes. Tone was increased in the upper extremities. Muscle bulk was normal. I did not see fasciculations. The pt had spontaneous movement of his extremities. Coordination and gait testing was limited by mental status. Arm and leg reflexes were within normal limits and symmetric. Carreon's sign was absent. Plantar responses were flexor. LEXIE VERA NP Dec 19, 2018 11:15
--- NOTE | 2018-12-19 14:22 | PN ---
Date/Time of Note Date/Time of Note DATE: 12/19/18 TIME: 14:18 Assessment/Plan VTE Prophylaxis Risk score (from Nsg)>0 risk: 9 SCD applied (from Nsg): Yes Pharmacological prophylaxis: other Lines/Catheters IV Catheter Type (from Nrsg): Saline Lock Urinary Cath still in place: Yes Reason Cath still needed: urinary retention Assessment/Plan Assessment/Plan 1. Acute encephalopathy- resolved - patient still has moments of confusion and hallucinations but most likely associated with Parkinsons - CT negative for acute intracranial issues - MRI showing small caudate CVA, however per neurology this is unlikely the true etiology of all of patient's previous symptoms - Neurology consultation appreciated 2. Dysphagia - Speech on board and appreciate recommendations 3. Parkinson's tremors - resolved - continue home medications - neurology on board 4. 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 Acute kidney injury on chronic kidney disease- improving - Nephrology on board and appreciate recommendations - most likely postobstructive given retention noted in ED 6. Diabetes mellitus - Insulin sliding scale 7. BPH - Continue meds 8. Hypertension - continue Norvasc and will add Hydralazine given bradycardia 9. 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 History of CVA - Plavix on board 11. Hypothyroidism - levothyroxine 12. History of prostate cancer -Monitor 13. Disposition - Patient has been improving medically but would benefit from ARU vs SNF placement Result Diagram: 12/18/18 0636 12/19/18 0557 Results 24hrs Laboratory Tests Test 12/18/18 18:36 12/18/18 21:19 12/19/18 01:26 12/19/18 05:57 Bedside Glucose 143 204 130 Sodium Level 142 Potassium Level 4.0 Chloride Level 108 Carbon Dioxide Level 24 Anion Gap 10 Blood Urea Nitrogen 23 H Creatinine 3.06 H Est Glomerular Filtrat Rate mL/min Glucose Level 135 Calcium Level 9.6 Phosphorus Level 3.7 Magnesium Level 2.2 Test 12/19/18 07:52 12/19/18 12:09 Bedside Glucose 141 186 Subjective 24 Hr Interval Summary Free Text/Dictation Patient still restless overnight per . Answering simple questions and per still with mild confusion. She states his parkinsons has been worsening rapidly and sees daily changes. Exam/Review of Systems Exam Vitals Vital Signs Date Temp Pulse Resp B/P (MAP) Pulse Ox O2 O2 Flow FiO2 Time Delivery Rate 12/19/18 67 13:39 12/19/18 98.3 20 146/66 96 Room Air 11:21 (92) 12/16/18 2.0 20:06 Intake and Output 12/18/18 12/18/18 12/19/18 1515:00 23:00 07:00 IntakeIntake Total 610 ml 530 ml 200 ml OutputOutput Total 500 ml 350 ml BalanceBalance 610 ml 30 ml -150 ml Exam General: Patient is laying in bed. no acute distress Neck: Supple Respiratory: Clear to auscultation bilaterally. no wheezing Cardiovascular: regular rate and rhythm, no obvious murmurs Gastrointestinal: soft, non-tender to palpation, bowel sounds heard. Neurological: Moves all extremities spontaneously, no tremors appreciated Skin: No new skin lesions Results Results 24hrs Laboratory Tests Test 12/18/18 18:36 12/18/18 21:19 12/19/18 01:26 12/19/18 05:57 Bedside Glucose 143 204 130 Sodium Level 142 Potassium Level 4.0 Chloride Level 108 Carbon Dioxide Level 24 Anion Gap 10 Blood Urea Nitrogen 23 H Creatinine 3.06 H Est Glomerular Filtrat Rate mL/min Glucose Level 135 Calcium Level 9.6 Phosphorus Level 3.7 Magnesium Level 2.2 Test 12/19/18 07:52 12/19/18 12:09 Bedside Glucose 141 186 Medications Medication Current Medications IV Flush (NS 3 ml) 3 ml PER PROTOCOL IV ; Start 12/13/18 at 15:00 Ondansetron HCl (Zofran Inj) 4 mg Q6H PRN IV NAUSEA/VOMITING; Start 12/13/18 at 15:00 Acetaminophen (Tylenol Tab) 650 mg Q6H PRN PO .PAIN 1-3 OR TEMP; Start 12/13/18 at 15:00 Acetaminophen/ Hydrocodone Bitart ([place] (5/325)) 1 tab Q6H PRN PO .PAIN 4-6; Start 12/13/18 at 15:00 Morphine Sulfate (morphine) 2 mg Q4H PRN IV .PAIN 7-10 Last administered on 12/14/18at 23:29; Admin Dose 2 MG; Start 12/13/18 at 15:00 Amlodipine Besylate (Norvasc) 10 mg DAILY PO Last administered on 4/18/19at 08:21; Admin Dose 10 MG; Start 12/14/18 at 09:00 Atorvastatin Calcium (Lipitor) 40 mg QHS PO Last administered on 12/18/18at 21:02; Admin Dose 40 MG; Start 12/13/18 at 21:00 Clopidogrel Bisulfate (plaVIX) 75 mg DAILY PO Last administered on 12/19/18 08:21; Admin Dose 75 MG; Start 12/14/18 at 09:00 Dutasteride (Avodart) 0.5 mg DAILY PO Last administered on 12/19/18 08:21; Admin Dose 0.5 MG; Start 12/14/18 at 09:00 Quetiapine Fumarate (Seroquel) 12.5 mg BID PO Last administered on 12/19/18 08:21; Admin Dose 12.5 MG; Start 12/13/18 at 21:00 Labetalol HCl (Labetalol) 10 mg Q4H PRN IV sbp >160 Last administered on 12/17/18at 09:27; Admin Dose 10 MG; Start 12/13/18 at 15:30 Miscellaneous Information 1 ea NOTE XX ; Start 12/13/18 at 15:30 Glucose (Glutose) 15 gm Q15M PRN PO DECREASED GLUCOSE; Start 12/13/18 at 15:30 Glucose (Glutose) 22.5 gm Q15M PRN PO DECREASED GLUCOSE; Start 12/13/18 at 15:30 Dextrose (D50w Syringe) 25 ml Q15M PRN IV DECREASED GLUCOSE; Start 12/13/18 at 15:30 Dextrose (D50w Syringe) 50 ml Q15M PRN IV DECREASED GLUCOSE; Start 12/13/18 at 15:30 Glucagon (Glucagen) 1 mg Q15M PRN IM DECREASED GLUCOSE; Start 12/13/18 at 15:30 Glucose (Glutose) 15 gm Q15M PRN BUCCAL DECREASED GLUCOSE; Start 12/13/18 at 15:30 Carbidopa/Levodopa (Sinemet (25/ 100)) 1 tab QID PO Last administered on 12/19/18at 12:08; Admin Dose 1 TAB; Start 12/14/18 at 13:00 Olanzapine (Zyprexa) 10 mg DAILY PRN IM agitation Last administered on 12/15/18at 22:07; Admin Dose 10 MG; Start 12/15/18 at 09:00 Hydralazine HCl (Apresoline) 10 mg Q4H PRN IV SBP >170 Last administered on 12/17/18 16:37; Admin Dose 10 MG; Start 12/17/18 at 10:30 Haloperidol (Haldol) 2 mg Q4H PRN IM severe agitation; Start 12/17/18 at 17:00 Divalproex Sodium (Depakote Er) 500 mg QHS PO Last administered on 12/18/18 21:03; Admin Dose 500 MG; Start 12/17/18 at 21:00 Hydralazine HCl (Apresoline) 25 mg TID PO Last administered on 12/19/18 12:08; Admin Dose 25 MG; Start 12/17/18 at 21:00 Levothyroxine Sodium (Synthroid) 25 mcg DAILY@06 PO Last administered on 12/19/18 05:58; Admin Dose 25 MCG; Start 12/18/18 at 06:00 Lansoprazole (Prevacid) 30 mg DAILY@06 PO Last administered on 12/19/18 05:58; Admin Dose 30 MG; Start 12/18/18 at 06:00 Docusate Sodium (Colace Liquid Cup) 250 mg BID PO Last administered on 12/19/18 08:22; Admin Dose 250 MG; Start 12/17/18 at 21:00 Aspirin (Aspirin) 81 mg DAILY PO Last administered on 12/19/18 08:21; Admin Dose 81 MG; Start 12/18/18 at 12:30 Insulin Aspart (Novolog Insulin Pen) NOVOLOG *MILD* ALGORITHM AC MEALS AND BEDTIME SC Last administered on 12/19/18 12:18; Admin Dose 2 UNIT; Start 12/18/18 at 21:00 ALEJANDRA MOSQUEDA MD Dec 19, 2018 14:22
[2018-12-19] MEDS: DIVALPROEX (ER) 500 MG TAB PO SCH (20:19)
[2018-12-19] MEDS: ATORVASTATIN 40 MG TAB PO SCH (20:19)
[2018-12-19] MEDS ORDERED: traZODone 50 MG TAB PO SCH (21:00)
[2018-12-20] VITALS (12 sets, daily range): BP systolic 122–172; BP diastolic 61–81; PULSE 37–83; RESP 20
[2018-12-20] MEDS: LEVOTHYROXINE 25 MCG TAB PO SCH (05:53)
[2018-12-20] MEDS: LANSOPRAZOLE 30 MG CAP PO SCH (05:53)
[2018-12-20] MEDS: INSULIN ASPART [NOVOLOG] 3 ML PEN SC SCH ×4 (08:05→20:52)
[2018-12-20] MEDS: QUETIAPINE 25 MG TAB PO SCH (08:14)
[2018-12-20] MEDS: ASPIRIN 81 MG TAB PO SCH (08:14)
[2018-12-20] MEDS: DUTASTERIDE 0.5 MG CAP PO SCH (08:14)
[2018-12-20] MEDS: AMLODIPINE 10 MG TAB PO SCH (08:14)
[2018-12-20] MEDS: DOCUSATE SODIUM 10 MG/ML (10ML CUP) PO SCH ×2 (08:14→20:57)
[2018-12-20] MEDS: CARBIDOPA/LEVODOPA (25/100) TAB PO SCH ×4 (08:15→20:51)
[2018-12-20] MEDS: CLOPIDOGREL 75 MG TAB PO SCH (08:15)
--- NOTE | 2018-12-20 09:27 | PN ---
DATE: 12/20/2018 SUBJECTIVE: The patient is stable, remains confused. No other events noted. OBJECTIVE: VITAL SIGNS: Blood pressure is 172/81, pulse 83, respirations 20, temperature 98.3. HEENT: Head is normocephalic. NECK: Supple. HEART: Regular rate. LUNGS: Show diminished breath sounds at the base. ABDOMEN: Soft, nontender to palpation without rebound or guarding. EXTREMITIES: Negative for clubbing, cyanosis, no edema. DERMATOLOGIC: No rashes. MUSCULOSKELETAL: No joint effusion. NEUROLOGIC: No change in exam. MEDICATIONS: The patient's medications have been reviewed. LABORATORY DATA: Reviewed. ASSESSMENT AND PLAN: 1. Nonoliguric acute kidney injury on top of chronic kidney disease stage IV with previous baseline creatinine of around 2.5 mg/dL. Etiology of acute kidney injury is secondary to hemodynamics, acute tubular necrosis. The patient's renal function has been fluctuating, but appears to be stabilizing b etween creatinine of 3.4 to 3.7 mg/dL. At this point, continue current treatment plans, supportive c are, renally dose all medicines. 2. Hypertension. Continue current blood pressure regimen. Defer SHOBHA inhibitor or ARB. 3. Anemia. Monitor hemoglobin and hematocrit levels. 4. Benign prostatic hypertrophy. Continue medical management. 5. Acute cerebrovascular accident. Continue current treatment plan. 6. Encephalopathy, etiology is multifactorial secondary to acute cerebrovascular, Parkinson disease, dementia. Continue to monitor. 7. Parkinson's syndrome. Continue current medical management. 8. Hypothyroidism. Continue Synthroid. 9. Diabetes. Continue current insulin regimen. 10. Dysphagia. Continue modified diet. Dictated By: OUMOU MCNULTY DO NR/NTS Conf#: [id number] DID#: [id number] CC: KASEY AKBAR MD; JAMILA SALAZAR; ALEJANDRA MOSQUEDA MD;*EndCC*
--- NOTE | 2018-12-20 11:19 | CONS ---
Assessment/Plan Assessment/Plan Hospital Course 83 M w/ Parkinson's Disease, who presents for evaluation of ams and heightened tremors. BUN/Cr elevated; baseline is presently unknown.. Perhaps an acute toxic-metabolic on chronic encephalopathy...with concomitant dyskinesias MRI brain is notable for a tiny and acute L caudate head infarct...which is likely without clinical consequence... EEG is without epileptiform activity. CUS is unremarkable LDL 64, coags wnl ESR 78; RPR neg Echo is unrevealing. P: Cont Plavix 75mg daily per ops for secondary stroke prevention; LDL is at goal.. Cont Sinemet 25/100 mg 1 tab qid for now Hold Seroquel until pt is more alert Limit all other sedating medications where possible [place] as able PT/OT/ST as necessary Other medical management per primary Will follow Consultation Date/Type/Reason Admit Date/Time Dec 13, 2018 at 14:40 Type of Consult Neurology Reason for Consultation worsening ams Requesting Provider: KASEY AKBAR Date/Time of Note DATE: 12/20/18 TIME: 11:17 24 HR Interval Summary Free Text/Dictation Continues acute care. The pt's states that pt has been sleeping all day yesterday, last night and today. Exam Vital Signs Vitals Vital Signs Date Temp Pulse Resp B/P (MAP) Pulse Ox O2 O2 Flow FiO2 Time Delivery Rate 12/20/18 97.7 71 20 128/61 96 Room Air 11:08 (83) 12/16/18 2.0 20:06 Intake and Output 12/19/18 12/19/18 12/20/18 1515:00 23:00 07:00 IntakeIntake Total 50 ml 360 ml 50 ml OutputOutput Total 350 ml 250 ml BalanceBalance 50 ml 10 ml -200 ml Exam PE: Gen Appearance: Calm, NAD HEENT: Normocephalic Cardiovascular: Regular rate Abdomen: Soft Extremities: Dry NE: The patient was lethargic and nonverbal today. Unable to follow simple commands at this time. Cranial nerve examination was limited by mental status. Pupils were equal and reactive to light. There was no afferent pupillary defect. Funduscopic examination was limited. Face was grossly symmetric, w/ present corneal and cough reflexes. Tone was increased in the upper extremities. Muscle bulk was normal. I did not see fasciculations. The pt withdrew his extremities to noxious stimuli. Coordination and gait testing was limited by mental status. Arm and leg reflexes were within normal limits and symmetric. Carreon's sign was absent. Plantar responses were flexor. LEXIE VERA NP Dec 20, 2018 11:19
--- NOTE | 2018-12-20 14:17 | PN ---
Date/Time of Note Date/Time of Note DATE: 12/20/18 TIME: 14:14 Assessment/Plan VTE Prophylaxis Risk score (from Nsg)>0 risk: 6 SCD applied (from Nsg): Yes Pharmacological prophylaxis: other Lines/Catheters IV Catheter Type (from Nrsg): Peripheral IV Urinary Cath still in place: Yes Reason Cath still needed: terminal illness/intractable pain Assessment/Plan Assessment/Plan 1. Acute encephalopathy - Will hold sedating medications given patient more lethargic this am. Per , he does not sleep at night and sleeps during the day - Per , still has moments of confusion and hallucinations but most likely associated with Parkinson's - CT negative for acute intracranial issues - MRI showing small caudate CVA, however per neurology this is unlikely the true etiology of all of patient's previous symptoms - Neurology consultation appreciated 2. Dysphagia - Speech on board and appreciate recommendations. will continue advancing diet as tolerated 3. Parkinson's tremors - resolved - continue home medications - neurology on board 4. 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 Acute kidney injury on chronic kidney disease - Nephrology on board and appreciate recommendations. patient has not been hydrating well since sleeping so most likely etiology of mild elevation today - most likely postobstructive given retention noted in ED 6. Diabetes mellitus - Insulin sliding scale 7. BPH - Continue meds 8. Hypertension - continue current medications and will adjust as needed 9. 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 History of CVA - Plavix on board 11. Hypothyroidism - levothyroxine 12. History of prostate cancer -Monitor 13. Disposition - on board for SNF placement which family agreeable to Result Diagram: 12/18/18 0636 12/20/18 0636 Results 24hrs Laboratory Tests Test 12/19/18 17:26 12/19/18 20:12 12/20/18 06:36 12/20/18 07:46 Bedside Glucose 181 165 143 Sodium Level 143 Potassium Level 4.0 Chloride Level 104 Carbon Dioxide Level 26 Anion Gap 13 Blood Urea Nitrogen 26 H Creatinine 3.45 H Est Glomerular Filtrat Rate mL/min Glucose Level 130 Calcium Level 9.2 Phosphorus Level 4.2 Magnesium Level 2.2 Test 12/20/18 11:46 Bedside Glucose 98 Subjective 24 Hr Interval Summary Free Text/Dictation patient resting this am. Per , he sleeps during the day and awake all night so sleep cycle is off. Still with hallucinations but remains calm. Exam/Review of Systems Exam Vitals Vital Signs Date Temp Pulse Resp B/P (MAP) Pulse Ox O2 O2 Flow FiO2 Time Delivery Rate 12/20/18 71 12:31 12/20/18 97.7 20 128/61 96 Room Air 11:08 (83) 12/16/18 2.0 20:06 Intake and Output 12/19/18 12/19/18 12/20/18 1515:00 23:00 07:00 IntakeIntake Total 50 ml 360 ml 50 ml OutputOutput Total 350 ml 250 ml BalanceBalance 50 ml 10 ml -200 ml Exam General: Patient is laying in bed. no acute distress. resting comfortably Neck: Supple Respiratory: Clear to auscultation bilaterally. no wheezing Cardiovascular: regular rate and rhythm, no obvious murmurs Gastrointestinal: soft, non-tender to palpation, bowel sounds heard. Neurological: Moves all extremities spontaneously, no tremors appreciated Skin: No new skin lesions Results Results 24hrs Laboratory Tests Test 12/19/18 17:26 12/19/18 20:12 12/20/18 06:36 12/20/18 07:46 Bedside Glucose 181 165 143 Sodium Level 143 Potassium Level 4.0 Chloride Level 104 Carbon Dioxide Level 26 Anion Gap 13 Blood Urea Nitrogen 26 H Creatinine 3.45 H Est Glomerular Filtrat Rate mL/min Glucose Level 130 Calcium Level 9.2 Phosphorus Level 4.2 Magnesium Level 2.2 Test 12/20/18 11:46 Bedside Glucose 98 Medications Medication Current Medications IV Flush (NS 3 ml) 3 ml PER PROTOCOL IV ; Start 12/13/18 at 15:00 Ondansetron HCl (Zofran Inj) 4 mg Q6H PRN IV NAUSEA/VOMITING; Start 12/13/18 at 15:00 Acetaminophen (Tylenol Tab) 650 mg Q6H PRN PO .PAIN 1-3 OR TEMP; Start 12/13/18 at 15:00 Acetaminophen/ Hydrocodone Bitart ([place] (5/325)) 1 tab Q6H PRN PO .PAIN 4-6; Start 12/13/18 at 15:00 Morphine Sulfate (morphine) 2 mg Q4H PRN IV .PAIN 7-10 Last administered on 12/14/18at 23:29; Admin Dose 2 MG; Start 12/13/18 at 15:00 Amlodipine Besylate (Norvasc) 10 mg DAILY PO Last administered on 12/20/18at 08:14; Admin Dose 10 MG; Start 12/14/18 at 09:00 Atorvastatin Calcium (Lipitor) 40 mg QHS PO Last administered on 12/19/18at 20:19; Admin Dose 40 MG; Start 12/13/18 at 21:00 Clopidogrel Bisulfate (plaVIX) 75 mg DAILY PO Last administered on 12/20/18at 08:15; Admin Dose 75 MG; Start 12/14/18 at 09:00 Dutasteride (Avodart) 0.5 mg DAILY PO Last administered on 12/20/18 08:14; Admin Dose 0.5 MG; Start 12/14/18 at 09:00 Labetalol HCl (Labetalol) 10 mg Q4H PRN IV sbp >160 Last administered on 12/17/18at 09:27; Admin Dose 10 MG; Start 12/13/18 at 15:30 Miscellaneous Information 1 ea NOTE XX ; Start 12/13/18 at 15:30 Glucose (Glutose) 15 gm Q15M PRN PO DECREASED GLUCOSE; Start 12/13/18 at 15:30 Glucose (Glutose) 22.5 gm Q15M PRN PO DECREASED GLUCOSE; Start 12/13/18 at 15:30 Dextrose (D50w Syringe) 25 ml Q15M PRN IV DECREASED GLUCOSE; Start 12/13/18 at 15:30 Dextrose (D50w Syringe) 50 ml Q15M PRN IV DECREASED GLUCOSE; Start 12/13/18 at 15:30 Glucagon (Glucagen) 1 mg Q15M PRN IM DECREASED GLUCOSE; Start 12/13/18 at 15:30 Glucose (Glutose) 15 gm Q15M PRN BUCCAL DECREASED GLUCOSE; Start 12/13/18 at 15:30 Carbidopa/Levodopa (Sinemet (25/ 100)) 1 tab QID PO Last administered on 12/20/18at 13:04; Admin Dose 1 TAB; Start 12/14/18 at 13:00 Olanzapine (Zyprexa) 10 mg DAILY PRN IM agitation Last administered on 12/15/18at 22:07; Admin Dose 10 MG; Start 12/15/18 at 09:00 Hydralazine HCl (Apresoline) 10 mg Q4H PRN IV SBP >170 Last administered on 12/17/18 16:37; Admin Dose 10 MG; Start 12/17/18 at 10:30 Haloperidol (Haldol) 2 mg Q4H PRN IM severe agitation; Start 12/17/18 at 17:00 Divalproex Sodium (Depakote Er) 500 mg QHS PO Last administered on 12/19/18 20:19; Admin Dose 500 MG; Start 12/17/18 at 21:00 Hydralazine HCl (Apresoline) 25 mg TID PO Last administered on 12/20/18 13:04; Admin Dose 25 MG; Start 12/17/18 at 21:00 Levothyroxine Sodium (Synthroid) 25 mcg DAILY@06 PO Last administered on 12/20/18 05:53; Admin Dose 25 MCG; Start 12/18/18 at 06:00 Lansoprazole (Prevacid) 30 mg DAILY@06 PO Last administered on 12/20/18 05:53; Admin Dose 30 MG; Start 12/18/18 at 06:00 Docusate Sodium (Colace Liquid Cup) 250 mg BID PO Last administered on 12/20/18 08:14; Admin Dose 250 MG; Start 12/17/18 at 21:00 Aspirin (Aspirin) 81 mg DAILY PO Last administered on 12/20/18 08:14; Admin Dose 81 MG; Start 12/18/18 at 12:30 Insulin Aspart (Novolog Insulin Pen) NOVOLOG *MILD* ALGORITHM AC MEALS AND BEDTIME SC Last administered on 12/20/18 08:05; Admin Dose 1 UNIT; Start 12/18/18 at 21:00 ALEJANDRA MOSQUEDA MD Dec 20, 2018 14:17
[2018-12-20] MEDS: ATORVASTATIN 40 MG TAB PO SCH (20:51)
[2018-12-20] MEDS: DIVALPROEX (ER) 500 MG TAB PO SCH (20:51)
[2018-12-20] MEDS ORDERED: traZODone 50 MG TAB PO SCH (21:00)
[2018-12-21] VITALS (9 sets, daily range): BP systolic 127–162; BP diastolic 61–74; PULSE 61–73; RESP 16–20
[2018-12-21] MEDS: LANSOPRAZOLE 30 MG CAP PO SCH (05:34)
[2018-12-21] MEDS: LEVOTHYROXINE 25 MCG TAB PO SCH (05:34)
[2018-12-21] MEDS: INSULIN ASPART [NOVOLOG] 3 ML PEN SC SCH ×3 (07:25→17:15)
[2018-12-21] MEDS: DOCUSATE SODIUM 10 MG/ML (10ML CUP) PO SCH (09:00)
[2018-12-21] MEDS: CLOPIDOGREL 75 MG TAB PO SCH (09:38)
[2018-12-21] MEDS: AMLODIPINE 10 MG TAB PO SCH (09:38)
[2018-12-21] MEDS: DUTASTERIDE 0.5 MG CAP PO SCH (09:38)
[2018-12-21] MEDS: ASPIRIN 81 MG TAB PO SCH (09:39)
[2018-12-21] MEDS: CARBIDOPA/LEVODOPA (25/100) TAB PO SCH ×3 (09:39→17:17)
--- NOTE | 2018-12-21 10:58 | CONS ---
Assessment/Plan Assessment/Plan Assessment/Plan (Daily) 1. Nonoliguric acute kidney injury on top of chronic kidney disease stage IV with previous baseline creatinine of around 2.5 mg/dL. Etiology of acute kidney injury is secondary to hemodynamics, acute tubular necrosis. The patient's renal function has been fluctuating, but appears to be stabilizing between creatinine of 3.4 to 3.7 mg/dL. At this point, continue current treatment plans, supportive care, renally dose all medicines. 2. Hypertension. Continue current blood pressure regimen. Defer SHOBHA inhibitor or ARB. 3. Anemia. Monitor hemoglobin and hematocrit levels. 4. Benign prostatic hypertrophy. Continue medical management. 5. Acute cerebrovascular accident. Continue current treatment plan. 6. Encephalopathy, etiology is multifactorial secondary to acute cerebrovascular, Parkinson disease, dementia. Continue to monitor. 7. Parkinson's syndrome. Continue current medical management. 8. Hypothyroidism. Continue Synthroid. 9. Diabetes. Continue current insulin regimen. 10. Dysphagia. Continue modified diet. Consultation Date/Type/Reason Admit Date/Time Dec 13, 2018 at 14:40 Initial Consult Date Requesting Provider: KASEY AKBAR Date/Time of Note DATE: 12/21/18 TIME: 10:57 24 HR Interval Summary Free Text/Dictation denies shortness of breath, n/v or urinary issues d.w rn gen nad cv rrr pulm ctab abd soft, nd, nt +bs ext: no edema Exam/Review of Systems Exam Vitals Vital Signs Date Temp Pulse Resp B/P (MAP) Pulse Ox O2 O2 Flow FiO2 Time Delivery Rate 12/21/18 98.2 66 19 144/69 98 Room Air 08:05 (94) Intake and Output 12/20/18 12/20/18 12/21/18 1414:59 22:59 06:59 IntakeIntake Total 600 ml 100 ml OutputOutput Total 450 ml 8600 ml BalanceBalance 150 ml -8500 ml Results Result Diagram: 12/18/18 0636 12/21/18 0630 Results 24hrs Laboratory Tests Test 12/20/18 11:46 12/20/18 17:16 12/20/18 20:36 12/20/18 21:27 Bedside Glucose 98 215 69 L 104 Test 12/20/18 21:28 12/21/18 06:30 12/21/18 07:57 Sodium Level 140 141 Potassium Level 4.1 4.5 Chloride Level 103 104 Carbon Dioxide Level 26 26 Anion Gap 11 11 Blood Urea Nitrogen 29 H 31 H Creatinine 3.55 H 3.32 H Est Glomerular Filtrat Rate mL/min Glucose Level 106 117 Calcium Level 9.1 9.0 Magnesium Level 2.2 2.2 Troponin I 0.028 Phosphorus Level 4.5 Bedside Glucose 119 Medications Medication Current Medications IV Flush (NS 3 ml) 3 ml PER PROTOCOL IV ; Start 12/13/18 at 15:00 Ondansetron HCl (Zofran Inj) 4 mg Q6H PRN IV NAUSEA/VOMITING Last administered on 12/20/18 21:18; Admin Dose 4 MG; Start 12/13/18 at 15:00 Acetaminophen (Tylenol Tab) 650 mg Q6H PRN PO .PAIN 1-3 OR TEMP; Start 12/13/18 at 15:00 Acetaminophen/ Hydrocodone Bitart ([place] (5/325)) 1 tab Q6H PRN PO .PAIN 4-6; Start 12/13/18 at 15:00 Morphine Sulfate (morphine) 2 mg Q4H PRN IV .PAIN 7-10 Last administered on 12/14/18at 23:29; Admin Dose 2 MG; Start 12/13/18 at 15:00 Amlodipine Besylate (Norvasc) 10 mg DAILY PO Last administered on 12/21/18 09:38; Admin Dose 10 MG; Start 12/14/18 at 09:00 Atorvastatin Calcium (Lipitor) 40 mg QHS PO Last administered on 12/20/18at 20:51; Admin Dose 40 MG; Start 12/13/18 at 21:00 Clopidogrel Bisulfate (plaVIX) 75 mg DAILY PO Last administered on 12/21/18 09:38; Admin Dose 75 MG; Start 12/14/18 at 09:00 Dutasteride (Avodart) 0.5 mg DAILY PO Last administered on 12/21/18 09:38; Admin Dose 0.5 MG; Start 12/14/18 at 09:00 Labetalol HCl (Labetalol) 10 mg Q4H PRN IV sbp >160 Last administered on 12/17/18 09:27; Admin Dose 10 MG; Start 12/13/18 at 15:30 Miscellaneous Information 1 ea NOTE XX ; Start 12/13/18 at 15:30 Glucose (Glutose) 15 gm Q15M PRN PO DECREASED GLUCOSE Last administered on 12/20/18at 20:48; Admin Dose 15 GM; Start 12/13/18 at 15:30 Glucose (Glutose) 22.5 gm Q15M PRN PO DECREASED GLUCOSE; Start 12/13/18 at 15:30 Dextrose (D50w Syringe) 25 ml Q15M PRN IV DECREASED GLUCOSE; Start 12/13/18 at 15:30 Dextrose (D50w Syringe) 50 ml Q15M PRN IV DECREASED GLUCOSE; Start 12/13/18 at 15:30 Glucagon (Glucagen) 1 mg Q15M PRN IM DECREASED GLUCOSE; Start 12/13/18 at 15:30 Glucose (Glutose) 15 gm Q15M PRN BUCCAL DECREASED GLUCOSE; Start 12/13/18 at 15:30 Carbidopa/Levodopa (Sinemet (25/ 100)) 1 tab QID PO Last administered on 12/21/18 09:39; Admin Dose 1 TAB; Start 12/14/18 at 13:00 Olanzapine (Zyprexa) 10 mg DAILY PRN IM agitation Last administered on 12/15/18at 22:07; Admin Dose 10 MG; Start 12/15/18 at 09:00 Hydralazine HCl (Apresoline) 10 mg Q4H PRN IV SBP >170 Last administered on 12/17/18at 16:37; Admin Dose 10 MG; Start 12/17/18 at 10:30 Haloperidol (Haldol) 2 mg Q4H PRN IM severe agitation; Start 12/17/18 at 17:00 Divalproex Sodium (Depakote Er) 500 mg QHS PO Last administered on 12/20/18 20:51; Admin Dose 500 MG; Start 12/17/18 at 21:00 Hydralazine HCl (Apresoline) 25 mg TID PO Last administered on 12/21/18 09:39; Admin Dose 25 MG; Start 12/17/18 at 21:00 Levothyroxine Sodium (Synthroid) 25 mcg DAILY@06 PO Last administered on 12/21/18 05:34; Admin Dose 25 MCG; Start 12/18/18 at 06:00 Lansoprazole (Prevacid) 30 mg DAILY@06 PO Last administered on 4/20/19at 05:34; Admin Dose 30 MG; Start 12/18/18 at 06:00 Docusate Sodium (Colace Liquid Cup) 250 mg BID PO Last administered on 12/20/18at 20:57; Admin Dose 250 MG; Start 12/17/18 at 21:00 Aspirin (Aspirin) 81 mg DAILY PO Last administered on 12/21/18at 09:39; Admin Dose 81 MG; Start 12/18/18 at 12:30 Insulin Aspart (Novolog Insulin Pen) NOVOLOG *MILD* ALGORITHM AC MEALS AND BEDTIME SC Last administered on 12/20/18at 17:21; Admin Dose 2 UNIT; Start 12/18/18 at 21:00 SADA AKBAR MD Dec 21, 2018 10:58
--- NOTE | 2018-12-21 13:40 | PN ---
Date/Time of Note Date/Time of Note DATE: 12/21/18 TIME: 13:36 Assessment/Plan VTE Prophylaxis Risk score (from Nsg)>0 risk: 9 SCD applied (from Nsg): Yes Pharmacological prophylaxis: other Lines/Catheters IV Catheter Type (from Nrsg): Peripheral IV Urinary Cath still in place: Yes Reason Cath still needed: urinary retention Assessment/Plan Assessment/Plan 1. Acute encephalopathy - remains pleasantly confused and will continue to avoid sedating medications - Per , still has moments of confusion and hallucinations but most likely associated with Parkinson's - CT negative for acute intracranial issues - MRI showing small caudate CVA, however per neurology this is unlikely the true etiology of all of patient's previous symptoms - Neurology consultation appreciated 2. Dysphagia - Speech on board and appreciate recommendations. tolerating current diet 3. Parkinson's tremors - continue home medications - neurology on board 4. 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 Acute kidney injury on chronic kidney disease - Nephrology on board and appreciate recommendations. - most likely postobstructive given retention noted in ED 6. Diabetes mellitus - Insulin sliding scale 7. BPH - Continue meds 8. Hypertension - continue current medications and will adjust as needed 9. 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 History of CVA - Plavix on board 11. Hypothyroidism - levothyroxine 12. History of prostate cancer -Monitor 13. Disposition - Patient remains stable. Continue current care pending SNF placement Result Diagram: 12/18/18 0636 12/21/18 0630 Results 24hrs Laboratory Tests Test 12/20/18 17:16 12/20/18 20:36 12/20/18 21:27 12/20/18 21:28 Bedside Glucose 215 69 L 104 Sodium Level 140 Potassium Level 4.1 Chloride Level 103 Carbon Dioxide Level 26 Anion Gap 11 Blood Urea Nitrogen 29 H Creatinine 3.55 H Est Glomerular Filtrat Rate mL/min Glucose Level 106 Calcium Level 9.1 Magnesium Level 2.2 Troponin I 0.028 Test 12/21/18 06:30 12/21/18 07:57 12/21/18 11:26 Sodium Level 141 Potassium Level 4.5 Chloride Level 104 Carbon Dioxide Level 26 Anion Gap 11 Blood Urea Nitrogen 31 H Creatinine 3.32 H Est Glomerular Filtrat Rate mL/min Glucose Level 117 Calcium Level 9.0 Phosphorus Level 4.5 Magnesium Level 2.2 Bedside Glucose 119 208 Subjective 24 Hr Interval Summary Free Text/Dictation Patient remains pleasantly confused this am with hallucinations. no acute overnight events. Exam/Review of Systems Exam Vitals Vital Signs Date Temp Pulse Resp B/P (MAP) Pulse Ox O2 O2 Flow FiO2 Time Delivery Rate 12/21/18 98.1 18 154/68 98 Room Air 12:26 (96) 12/21/18 69 12:01 Intake and Output 12/20/18 12/20/18 12/21/18 1515:00 23:00 07:00 IntakeIntake Total 600 ml 100 ml OutputOutput Total 450 ml 8600 ml BalanceBalance 150 ml -8500 ml Exam General: Patient is laying in bed. no acute distress. resting comfortably Neck: Supple Respiratory: Clear to auscultation bilaterally. no wheezing Cardiovascular: regular rate and rhythm, no obvious murmurs Gastrointestinal: soft, non-tender to palpation, bowel sounds heard. Neurological: Moves all extremities spontaneously, no tremors appreciated Skin: No new skin lesions Results Results 24hrs Laboratory Tests Test 12/20/18 17:16 12/20/18 20:36 12/20/18 21:27 12/20/18 21:28 Bedside Glucose 215 69 L 104 Sodium Level 140 Potassium Level 4.1 Chloride Level 103 Carbon Dioxide Level 26 Anion Gap 11 Blood Urea Nitrogen 29 H Creatinine 3.55 H Est Glomerular Filtrat Rate mL/min Glucose Level 106 Calcium Level 9.1 Magnesium Level 2.2 Troponin I 0.028 Test 12/21/18 06:30 12/21/18 07:57 12/21/18 11:26 Sodium Level 141 Potassium Level 4.5 Chloride Level 104 Carbon Dioxide Level 26 Anion Gap 11 Blood Urea Nitrogen 31 H Creatinine 3.32 H Est Glomerular Filtrat Rate mL/min Glucose Level 117 Calcium Level 9.0 Phosphorus Level 4.5 Magnesium Level 2.2 Bedside Glucose 119 208 Medications Medication Current Medications IV Flush (NS 3 ml) 3 ml PER PROTOCOL IV ; Start 12/13/18 at 15:00 Ondansetron HCl (Zofran Inj) 4 mg Q6H PRN IV NAUSEA/VOMITING Last administered on 12/20/18at 21:18; Admin Dose 4 MG; Start 12/13/18 at 15:00 Acetaminophen (Tylenol Tab) 650 mg Q6H PRN PO .PAIN 1-3 OR TEMP; Start 12/13/18 at 15:00 Acetaminophen/ Hydrocodone Bitart ([place] (5/325)) 1 tab Q6H PRN PO .PAIN 4-6; Start 12/13/18 at 15:00 Morphine Sulfate (morphine) 2 mg Q4H PRN IV .PAIN 7-10 Last administered on 12/14/18at 23:29; Admin Dose 2 MG; Start 12/13/18 at 15:00 Amlodipine Besylate (Norvasc) 10 mg DAILY PO Last administered on 12/21/18 09:38; Admin Dose 10 MG; Start 12/14/18 at 09:00 Atorvastatin Calcium (Lipitor) 40 mg QHS PO Last administered on 12/20/18 20:51; Admin Dose 40 MG; Start 12/13/18 at 21:00 Clopidogrel Bisulfate (plaVIX) 75 mg DAILY PO Last administered on 12/21/18 09:38; Admin Dose 75 MG; Start 12/14/18 at 09:00 Dutasteride (Avodart) 0.5 mg DAILY PO Last administered on 12/21/18 09:38; Admin Dose 0.5 MG; Start 12/14/18 at 09:00 Labetalol HCl (Labetalol) 10 mg Q4H PRN IV sbp >160 Last administered on 12/17/18 09:27; Admin Dose 10 MG; Start 12/13/18 at 15:30 Miscellaneous Information 1 ea NOTE XX ; Start 12/13/18 at 15:30 Glucose (Glutose) 15 gm Q15M PRN PO DECREASED GLUCOSE Last administered on 12/20/18at 20:48; Admin Dose 15 GM; Start 12/13/18 at 15:30 Glucose (Glutose) 22.5 gm Q15M PRN PO DECREASED GLUCOSE; Start 12/13/18 at 15:30 Dextrose (D50w Syringe) 25 ml Q15M PRN IV DECREASED GLUCOSE; Start 12/13/18 at 15:30 Dextrose (D50w Syringe) 50 ml Q15M PRN IV DECREASED GLUCOSE; Start 12/13/18 at 15:30 Glucagon (Glucagen) 1 mg Q15M PRN IM DECREASED GLUCOSE; Start 12/13/18 at 15:30 Glucose (Glutose) 15 gm Q15M PRN BUCCAL DECREASED GLUCOSE; Start 12/13/18 at 15:30 Carbidopa/Levodopa (Sinemet (25/ 100)) 1 tab QID PO Last administered on 12/21/18 12:30; Admin Dose 1 TAB; Start 12/14/18 at 13:00 Olanzapine (Zyprexa) 10 mg DAILY PRN IM agitation Last administered on 12/15/18 22:07; Admin Dose 10 MG; Start 12/15/18 at 09:00 Hydralazine HCl (Apresoline) 10 mg Q4H PRN IV SBP >170 Last administered on 12/17/18 16:37; Admin Dose 10 MG; Start 12/17/18 at 10:30 Haloperidol (Haldol) 2 mg Q4H PRN IM severe agitation; Start 12/17/18 at 17:00 Divalproex Sodium (Depakote Er) 500 mg QHS PO Last administered on 12/20/18 20:51; Admin Dose 500 MG; Start 12/17/18 at 21:00 Hydralazine HCl (Apresoline) 25 mg TID PO Last administered on 12/21/18 12:30; Admin Dose 25 MG; Start 12/17/18 at 21:00 Levothyroxine Sodium (Synthroid) 25 mcg DAILY@06 PO Last administered on 12/21/18 05:34; Admin Dose 25 MCG; Start 12/18/18 at 06:00 Lansoprazole (Prevacid) 30 mg DAILY@06 PO Last administered on 12/21/18 05:34; Admin Dose 30 MG; Start 12/18/18 at 06:00 Docusate Sodium (Colace Liquid Cup) 250 mg BID PO Last administered on 12/20/18 20:57; Admin Dose 250 MG; Start 12/17/18 at 21:00 Aspirin (Aspirin) 81 mg DAILY PO Last administered on 12/21/18 09:39; Admin Dose 81 MG; Start 12/18/18 at 12:30 Insulin Aspart (Novolog Insulin Pen) NOVOLOG *MILD* ALGORITHM AC MEALS AND BEDTIME SC Last administered on 12/21/18 11:33; Admin Dose 2 UNIT; Start 12/18/18 at 21:00 ALEJANDRA MOSQUEDA MD Dec 21, 2018 13:40
--- NOTE | 2018-12-21 15:59 | PDOCDIS ---
Discharge Instructions DIAGNOSIS Discharge Diagnosis 1. Acute encephalopathy- stable 2. Dysphagia- resolved 3. Parkinson's tremors- resolved 4. Right caudate nucleus CVA, 3mm 5. Acute kidney injury on chronic kidney disease- stabilizing 6. Diabetes mellitus 7. BPH 8. Hypertension 9. Parkinson's dementia, Moderate to severe 10. History of CVA 11. Hypothyroidism 12. History of prostate cancer CONDITION [id number] Patient Condition: [id number] Stable HOME CARE INSTRUCTIONS: [id number] Special Diet: [id number] NECTAR THICK LIQUIDS by TEASPOON ONLY!! NO CUP OR STRAWS. Pureed diet FOLLOW UP/APPOINTMENTS Follow-up Plan 1. Follow up with primary care physician in 1-2 weeks 2. You will need to continue to have your renal function monitored as outpatient 3. Take all medications as prescribed 4. Hold Seroquel if experiencing excess sedation 5. If experiencing any concerning symptoms, please go to your nearest emergency department 6. Continue working with speech therapy for advancement of your diet as tolerated ALEJANDRA MOSQUEDA MD Dec 21, 2018 15:59
--- NOTE | 2018-12-21 16:08 | DS ---
Date/Time of Note Date/Time of Note DATE: 12/21/18 TIME: 15:59 Discharge Summary Admission/Discharge Info Admit Date/Time Dec 13, 2018 at 14:40 Discharge Date/Time 12/21/18 Discharge Diagnosis 1. Acute encephalopathy- stable 2. Dysphagia- resolved 3. Parkinson's tremors- resolved 4. Right caudate nucleus CVA, 3mm 5. Acute kidney injury on chronic kidney disease- stabilizing 6. Diabetes mellitus 7. BPH 8. Hypertension 9. Parkinson's dementia, Moderate to severe 10. History of CVA 11. Hypothyroidism 12. History of prostate cancer Consults Neurology- Dr. García Nephrology- Dr. Spivey Procedures PROCEDURE: CT ABDOMEN AND PELVIS WITHOUT CONTRAST. CLINICAL INDICATION: Abdominal pain TECHNIQUE: CT scan of the abdomen and pelvis without contrast was performed on a multidetector high-resolution CT scanner. The patient was scanned without intravenous contrast. Coronal and sagittal reformatted images were obtained from the axial source images. Images were reviewed on a high-resolution PACS workstation. The total exam CTDI equals 11.3 mGy and the total exam DLP equals 647 mGy-cm. One or more of the following dose reduction techniques were used: Automated exposure control. Adjustment of the mA and/or kV according to patient size. Use of iterative reconstruction technique. DICOM images are available COMPARISON: None FINDINGS: CT abdomen: The lung bases are clear. The heart size is within normal limits. There is no significant pericardial effusion. Hepatic morphology is within normal limits. No gross contour deforming masses. The gallbladder is within normal limits. No evidence of intrahepatic or extrahepatic biliary dilatation. The spleen and pancreas are within normal limits. Both adrenal glands are within normal limits. Both kidneys are in normal anatomic position. No evidence of obstruction or hydronephrosis. No gross renal/ureteric calculi. The visualized GI tract demonstrates normal caliber loops of small and large bowel. No evidence of bowel obstruction. Stool filled loops of large bowel suggestive of constipation. Atherosclerotic calcification of the aorta is identified. No significant retroperitoneal lymphadenopathy. CT pelvis: Bladder is distended. The prostate gland is enlarged. Stool noted within the rectosigmoid colon. There is sigmoid diverticulosis. No significant free fluid. No pelvic lymphadenopathy. The visualized osseous structures demonstrates multilevel degenerative disease of the spine. IMPRESSION: 1. No evidence of acute intra-abdominal/pelvic inflammatory process. No evidence of bowel obstruction. Stool filled loops of large bowel suggestive of constipation. The appendix is within normal limits. 2. Atherosclerotic disease aorta. 3. No gross renal/ureteric calculi. No evidence of obstructive uropathy. 4. Colonic diverticulosis. 5. Mild prostamegaly. Recommend correlation with PSA levels. RPTAT: AAPP Merlin Duval, Physician Date Time Electronically viewed and signed by Physician Rema on 12/13/2018 13:27 PROCEDURE: CT Brain without contrast. CLINICAL INDICATION: Headache TECHNIQUE: A CT of the brain was performed on a [employer] 64-slice CT scanner utilizing axial imaging from the skull base through the vertex without IV contrast. Multiplanar reformatted images were made. Images were reviewed on a PACS workstation. The CTDIvol is 45.6 mGy and the DLP is 854 mGycm. DICOM images are available. One or more of the following dose reduction techniques were utilized: 1.) Automated exposure control 2.) Adjustment of the mA +/- kV according to patient's size 3.) Use of iterative reconstruction technique. COMPARISON: August 30, 2016 FINDINGS: There is no intracranial hemorrhage, mass effect, or midline shift. No extra- axial fluid collection is seen. There is severe diffuse cerebral volume loss with prominence of the cerebral sulci and lateral ventricles. Mild periventricular white matter hypodensities are nonspecific but likely reflect chronic microvascular ischemic change. The visualized paranasal sinuses and osseous structures are grossly unremarkable. IMPRESSION: 1. No evidence of acute intracranial pathology. 2. Advanced diffuse cerebral volume loss. 3. Periventricular white matter hypodensities are nonspecific but likely reflect chronic microvascular ischemic change. Physician Marcus Date Time Electronically viewed and signed by Physician Marcus on 12/13/2018 13:19 PROCEDURE: XR Chest. CLINICAL INDICATION: r/o pna TECHNIQUE: Single view chest x-ray. COMPARISON: CT 12/13/2018; CR CHEST 05/29/2018; CR CHEST 08/30/2016; CR CHEST 05/25/2016 FINDINGS: The cardiomediastinal silhouette is normal in size and contour. Subtle left retrocardiac atelectasis versus infiltrate. No pleural effusions or pneumothorax. Degenerative changes of the osseous structures. IMPRESSION: 1. Subtle left retrocardiac atelectasis versus infiltrate. RPTAT: AA Physician Giancarlo Date Time Electronically viewed and signed by Physician Giancarlo on 12/14/2018 10:22 PROCEDURE: MR Brain without contrast. CLINICAL INDICATION: Seizures TECHNIQUE: Routine MRI of the brain performed without intravenous contrast. Additional high-resolution images obtained for evaluation of seizures. COMPARISON: CT BRAIN 12/13/2018; MR HEAD 05/31/2018; MR 05/30/2018 FINDINGS: Diffusion: 3 mm recent infarct in the head of the caudate nucleus on the left. Hemorrhage: No evidence of focal hematoma or subarachnoid hemorrhage. No evidence for remote blood degradation products. Mass effect: None. Parenchymal volume: Moderate central parenchymal volume loss is evident. Ventricular system: Concordant with the degree of parenchymal volume. Parenchymal signal changes: Nonspecific small scattered areas of T2 and FLAIR signal hyperintensity measuring a few millimeters are seen in the supratentorial white matter most commonly due to chronic moderate microvascular ischemic changes. Differential considerations include sequelae of migraines; prior parenchymal injury from infectious or inflammatory/demyelinating process; vasculopathy. Vasculature: Appropriate flow voids suggesting patency of the central arterial system and visualized dural venous sinuses. Paranasal sinuses: Clear. Mastoid air cells: Minimal left-sided fluid. Calvarium: Within normal limits. Extracranial soft tissues: Within normal limits. MR seizure protocol: Gyral morphology: Within normal limits. Roger matter heterotopia: Not identified. Myelination pattern: Within normal limits for the patient's age. Subcortical bands: Not identified. Hippocampal formations and mesial temporal lobes: Symmetric volume loss appears concordant with the remainder the brain parenchyma. IMPRESSION: 3 mm recent infarct in the head of the caudate nucleus on the left. Nonspecific small scattered areas of T2 and FLAIR signal hyperintensity measuring a few millimeters are seen in the supratentorial white matter most commonly due to chronic moderate microvascular ischemic changes. Differential considerations include sequelae of migraines; prior parenchymal injury from infectious or inflammatory/demyelinating process; vasculopathy. No structural brain abnormalities are identified that are typically associated with seizures. RPTAT: AADD .Rafa Vang MD, MD Date Time Electronically viewed and signed by .Rafa Vang MD, MD on 12/14/2018 18:36 PROCEDURE: US Carotids. CLINICAL INDICATION: Acute left caudate infarct. TECHNIQUE: Multiple sonographic of the carotid bifurcation region and vertebral arteries were obtained utilizing roger scale, duplex and color-flow imaging. The images were reviewed on a PACS workstation. COMPARISON: MRI 12/14/2018 FINDINGS: Evaluation of the right carotid bifurcation region reveals mild calcific atherosclerotic disease. Evaluation of the left carotid bifurcation region reveals severe calcific atherosclerotic disease. There is antegrade flow within the left vertebral artery. Right vertebral artery not visualized. RIGHT CAROTID MEASUREMENTS: Common Carotid Artery 74 (cm/sec) Internal Carotid Artery - proximal 51 (cm/sec) Internal Carotid Artery - mid 59 (cm/sec) Internal Carotid Artery - distal 66 (cm/sec) Internal Carotid/Common Carotid 0.9 LEFT CAROTID MEASUREMENTS: Common Carotid Artery 104 (cm/sec) Internal Carotid Artery - proximal 90 (cm/sec) Internal Carotid Artery - mid 80 (cm/sec) Internal Carotid Artery - distal 83 (cm/sec) Internal Carotid/Common Carotid 0.9 IMPRESSION: 1. No evidence of a significant stenosis of the right internal carotid artery. 2. No evidence of a significant stenosis of the left internal carotid artery. 3. There is antegrade flow within the left vertebral artery. Right vertebral artery not visualized. Measurement of carotid stenosis is based on peak systolic and diastolic velocity parameters that correlate to the residual internal carotid diameter with [place] Symptomatic Carotid Endarterectomy Trial (NASCET) based stenosis levels. Normal ( < 50% ) - ICA peak systolic velocity < 125 cm/sec, ICA / CCA ratio < 2.0 Moderate stenosis ( 50 - 69% ) - ICA peak systolic velocity 125 - 230 cm/sec, ICA / CCA ratio 2.0 - 4.0 Severe stenosis ( >70% ) - ICA peak systolic velocity > 230 cm/sec, ICA / CCA ratio > 4.0 RPTAT:AAJJ Physician Isidra Date Time Electronically viewed and signed by Justus Albert Physician on 12/15/2018 13:42 Hx of Present Illness Patient is a male with a past medical history significant for severe Parkinson's dementia, CKD, BPH, diabetes mellitus, CVA, hypothyroidism, prostate cancer who presents to [facility] brought in by family. Patient's family states that they awoke to the patient this morning being more altered than normal. Patient's baseline apparently is able to answer simple questions and able to recite the family members names. Currently patient is not oriented at all. Patient unable to answer simple question and shaking in the bed however pa tient while shaking is having coordinated movements including pulling up his blanket as well as trying to take his socks off. Patient is not able to cooperate at this time with HPI for rest of history is given from family at bedside. Patient's family states that over the past week patient has been having intermittently worsening nausea vomiting as well as decreased p.o. intake. Patient has not taken his medications for a few days. HPI is limited as patient is not coherent enough to answer questions. Acute encephalopathy -May be due to decreased p.o. intake and volume depletion as patient has not been having good intake for the past week -CT negative for acute intracranial issues -MRI pending -IV fluid -No known source of infection at this time, no fever -Questionable seizure activity as patient is shaking a lot however during the shaking episodes patient has coordinated movements and is unlike typical shaking activity, Ativan as needed for seizures -Patient also not taking medication for quite some time as unable to tolerate p.o., IV Zyprexa and IV Depakote for now -Neurology consulted Shaking episodes -Worsening sequelae of Parkinson's and not being able to take his medications versus seizure -Treat seizure as needed with Ativan -Neurology consulted -MRI pending -EEG pending Acute kidney injury on chronic kidney disease -Patient's baseline is in the twos per family, -Has a history of obstruction, will insert Preston -We will IV fluid hydrate -Nephrology consulted Diabetes mellitus -Insulin sliding scale BPH -Continue meds when able Hypertension -PRN meds for now Parkinson's dementia -Moderate to severe -Restart Mark Ortiz Depakote as able History of CVA -Continue Plavix when able Hypothyroidism -IV Synthroid until able to tolerate p.o. History of prostate cancer -Monitor Hospital Course Patient was admitted for workup of altered mental status and Neurology was consulted in setting of tremors and AMS. Patient underwent imaging studies and was found with small caudate stroke but per Neurology was not the etiology of his AMS. Patients parkinsons medications were adjusted and sedating medications held. Patients mentation improved and was able to take PO intake. Patients tremors resolved, however, patient still was experiencing confusion and hallucinations which were determined to be from his Parkinson dementia. Patient was also assessed by Nephrology given JEFFREY on CKD and renal function was monitored during hospital course. Cr slowly improved as hemodynamic stabilized. Patient was evaluated by physical therapy with recommendations for SNF placement. CM was consulted and family requested Murali Clarke. Patients overall condition remained stable and he was discharged in good condition to SNF. Home Meds Reported Medications Hydralazine Hcl* (Hydralazine Hcl*) 100 Mg Tablet, 100 MG PO NEEDED PRN for HTN, #90 TAB 12/13/18 Carbidopa/Levodopa (CARBIDOPA-LEVO 25-100 MG ODT) 1 Each Tab.rapdis, 1.5 TAB PO QID, #120 TAB 12/13/18 Divalproex Sodium* (Divalproex ER*) 500 Mg Tab.er.24h, 500 MG PO QHS, #30 TAB.SA 12/13/18 Quetiapine Fumarate* (Quetiapine Fumarate*) 25 Mg Tablet, 12.5 MG PO BID, TAB 12/13/18 Atorvastatin* (Atorvastatin*) 40 Mg Tablet, 40 MG PO QHS, #30 TAB 12/13/18 Clopidogrel Bisulfate* (Clopidogrel Bisulfate*) 75 Mg Tablet, 75 MG PO DAILY, #30 TAB 12/13/18 Docusate Sodium* (Colace*) 250 Mg Capsule, 250 MG PO BID, #60 CAP 12/13/18 Sitagliptin* (Januvia*) 100 Mg Tablet, 100 MG PO DAILY, #30 TAB 12/13/18 Diclofenac Sodium* (Voltaren* Gel) 1% -100 Gm Gel, 2 GM TOP BID, #1 TUB 12/13/18 Dutasteride* (Avodart*) 0.5 Mg Capsule, 0.5 MG PO DAILY, CAP 12/13/18 Glimepiride* (Glimepiride*) 4 Mg Tablet, 4 MG PO WITH BREAKFAST DINNE, TAB 12/13/18 Amlodipine Besylate* (Amlodipine Besylate*) 10 Mg Tablet, 10 MG PO DAILY, #30 TA B 12/13/18 Pantoprazole* (Pantoprazole*) 40 Mg Tablet.dr, 40 MG PO AC BREAKFAST, TAB 12/13/18 Levothyroxine Sodium* (Levothyroxine Sodium*) 25 Mcg Tablet, 25 MCG PO BEFORE BREAKFAST, #30 TAB 12/13/18 Ergocalciferol (Vitamin D2) (VITAMIN D2) 50,000 Unit Capsule, 93853 UNIT PO Q7D, CAP 12/13/18 Follow-up Plan 1. Follow up with primary care physician in 1-2 weeks 2. You will need to continue to have your renal function monitored as outpatient 3. Take all medications as prescribed 4. Hold Seroquel if experiencing excess sedation 5. If experiencing any concerning symptoms, please go to your nearest emergency department 6. Continue working with speech therapy for advancement of your diet as tolerated Primary Care Provider Care Physician No Primary Time spent on discharge: > 30 minutes Pending Labs Laboratory Tests Test 12/20/18 17:16 12/20/18 20:36 12/20/18 21:27 12/20/18 21:28 Bedside 215 69 104 Glucose mg/dL (70-220) mg/dL (70-220) mg/dL (70-220) Sodium Level 140 mmol/L (135-14 4) Potassium 4.1 Level mmol/L (3.5-5. 1) Chloride Level 103 mmol/L (97-110 ) Carbon Dioxide 26 Level mmol/L (21-31) Anion Gap 11 (5-13) Blood Urea 29 Nitrogen mg/dl (7-20) Creatinine 3.55 mg/dl (0.61-1. 24) Est Glomerular mL/min (>60) Filtrat Rate mL/min Glucose Level 106 mg/dl (70-220) Calcium Level 9.1 mg/dl (8.4-10. 2) Magnesium 2.2 Level mg/dl (1.7-2.5 ) Troponin I 0.028 ng/ml (0.000-0 .120) Test 12/21/18 06:30 12/21/18 07:57 12/21/18 11:26 Sodium Level 141 mmol/L (135-144 ) Potassium 4.5 Level mmol/L (3.5-5.1 ) Chloride Level 104 mmol/L (97-110) Carbon Dioxide 26 Level mmol/L (21-31) Anion Gap 11 (5-13) Blood Urea 31 mg/dl (7-20) Nitrogen Creatinine 3.32 mg/dl (0.61-1.2 4) Est Glomerular mL/min (>60) Filtrat Rate mL/min Glucose Level 117 mg/dl (70-220) Calcium Level 9.0 mg/dl (8.4-10.2 ) Phosphorus 4.5 Level mg/dl (2.5-4.9) Magnesium 2.2 Level mg/dl (1.7-2.5) Bedside 119 208 Glucose mg/dL (70-220) mg/dL (70-220) ALEJANDRA MOSQUEDA MD Dec 21, 2018 16:08
== END 2018-12-21 20:15 | DRG 91 ==
LOC: E/R 11:28 → TEL 14:40 → CANRESERV 17:52 → EDBEDREQ 18:06 → EDBEDREQSVC 18:06 → CANBEDREQ 18:12 → TEL 12-14 19:42
PROVIDERS: ADMIT Internal Medicine; ATTEND Internal Medicine
DX: G92 Toxic encephalopathy (principal); I63.9 Cerebral infarction, unspecified; N17.9 Acute kidney failure, unspecified; E87.0 Hyperosmolality and hypernatremia; N18.4 Chronic kidney disease, stage 4 (severe); I12.0 Hypertensive chronic kidney disease with stage 5 chronic kidney disease or end stage renal disease; E11.8 Type 2 diabetes mellitus with unspecified complications; E87.5 Hyperkalemia; R13.10 Dysphagia, unspecified; G20 Parkinson's disease; D64.9 Anemia, unspecified; N40.0 Benign prostatic hyperplasia without lower urinary tract symptoms; E03.9 Hypothyroidism, unspecified; I16.0 Hypertensive urgency; I25.10 Atherosclerotic heart disease of native coronary artery without angina pectoris; F02.80 Dementia in other diseases classified elsewhere, unspecified severity, without behavioral disturbance, psychotic disturbance, mood disturbance, and anxiety
CPT/HCPCS: 36415; 70450; 70551; 71045; 74176; 80048; 80053; 80061; 80076; 80164; 80307; 81001; 81003; 82043; 82140; 82607; 82962; 83036; 83690; 83735; 84100; 84155; 84300; 84443; 84484; 85025; 85049; 85610; 85651; 85670; 85730; 86592; 92526; 92610; 93005; 93306; 93880; 95819; 96374; 96376; 97110; 97162; 97167; 97530; C9113; J0295; J0360; J1200; J1630; J1815; J2060; J2270; J2405; J3480; J7042; J7070

== ENCOUNTER 2018-12-31 13:18 | Observation (INO) | payer MEDICARE, OTHER ==
[~2018-12-31] VITALS: Ht 167.6 cm; Wt 56.1 kg
[~2018-12-31 13:18] MED LIST changes: -CARB1TAB34 PO; +CARB1TAB46 PO; +DICL100G37 TOP; +DIVA500T15 PO; -DOCU-216 PO; +DOCU250C58 PO; +ERGO500013 PO; -HYDR-3671 PO; +HYDR100T25 PO; -POLY17PO6 PO; -PRAM0.12 PO; +QUET25TA33 PO; -SERT50TA6 PO; -SVL400T PO
[2018-12-31] MEDS ORDERED: SODIUM CHLORIDE 0.9% 1L BAG IV* STA (13:59)
[2018-12-31] MEDS ORDERED: CEFEPIME 2GM/50 ML (PMX) 50 ML IVPB STA (13:59)
[2018-12-31] MEDS ORDERED: VANCOMYCIN 1 GM (PMX) 250 ML IVPB ONE (14:00)
--- NOTE | 2018-12-31 16:20 | ERD ---
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 painful stim only HPI This is a 83-year-old male with severe Parkinson's disease and Parkinson's dementia who is here with family he states that over the past day and a half he said of declining mental status and him not eating. Patient has a chronic indwelling Preston. Patient has been sleeping more than usual ROS All systems reviewed and are negative except as per history of present illness. Medications Home Meds Reported Medications Hydralazine Hcl* (Hydralazine Hcl*) 100 Mg Tablet, 100 MG PO NEEDED PRN for HTN, #90 TAB 12/13/18 Carbidopa/Levodopa (CARBIDOPA-LEVO 25-100 MG ODT) 1 Each Tab.rapdis, 1.5 TAB PO QID, #120 TAB 12/13/18 Divalproex Sodium* (Divalproex ER*) 500 Mg Tab.er.24h, 500 MG PO QHS, #30 TAB.SA 12/13/18 Quetiapine Fumarate* (Quetiapine Fumarate*) 25 Mg Tablet, 12.5 MG PO BID, TAB 12/13/18 Atorvastatin* (Atorvastatin*) 40 Mg Tablet, 40 MG PO QHS, #30 TAB 12/13/18 Clopidogrel Bisulfate* (Clopidogrel Bisulfate*) 75 Mg Tablet, 75 MG PO DAILY, #30 TAB 12/13/18 Docusate Sodium* (Colace*) 250 Mg Capsule, 250 MG PO BID, #60 CAP 12/13/18 Sitagliptin* (Januvia*) 100 Mg Tablet, 100 MG PO DAILY, #30 TAB 12/13/18 Diclofenac Sodium* (Voltaren* Gel) 1% -100 Gm Gel, 2 GM TOP BID, #1 TUB 12/13/18 Dutasteride* (Avodart*) 0.5 Mg Capsule, 0.5 MG PO DAILY, CAP 12/13/18 Glimepiride* (Glimepiride*) 4 Mg Tablet, 4 MG PO WITH BREAKFAST DINNE, TAB 12/13/18 Amlodipine Besylate* (Amlodipine Besylate*) 10 Mg Tablet, 10 MG PO DAILY, #30 TAB 12/13/18 Pantoprazole* (Pantoprazole*) 40 Mg Tablet.dr, 40 MG PO AC BREAKFAST, TAB 12/13/18 Levothyroxine Sodium* (Levothyroxine Sodium*) 25 Mcg Tablet, 25 MCG PO BEFORE BREAKFAST, #30 TAB 12/13/18 Ergocalciferol (Vitamin D2) (VITAMIN D2) 50,000 Unit Capsule, 38319 UNIT PO Q7D, CAP 12/13/18 Allergies Allergies: Coded Allergies: lorazepam (Verified Allergy, Severe, PARADOXICAL REACTION W/ INCREASED AGITATION, 12/31/18) PMhx/Soc History of Surgery: No Anesthesia Reaction: No Hx Neurological Disorder: Yes (Parkinsons and restless legs syndrome and 4x stroke) Hx Respiratory Disorders: No Hx Cardiac Disorders: Yes (hypertension) Hx Psychiatric Problems: No Hx Miscellaneous Medical Probl: Yes (Parkinson's, CVA x3, dementia, HTN) Hx Alcohol Use: No Hx Substance Use: No Hx Tobacco Use: No FmHx Family History: No coronary disease Physical Exam Vitals Vital Signs Date Temp Pulse Resp B/P (MAP) Pulse Ox O2 O2 Flow FiO2 Time Delivery Rate 12/31/18 97.9 65 18 102/60 98 13:31 (74) Physical Exam Const: Well-developed, well-nourished Head: Atraumatic, normocephalic Eyes: Normal Conjunctiva, PERRLA, EOMI, normal sclera, no nystagmus ENT: Normal External Ears, Nose and Mouth, moist mucus membranes. Neck: Full range of motion. No meningismus, no lymphadenopathy. Resp: Clear to auscultation bilaterally, no wheezing, rhonchi, rales Cardio: Regular rate and rhythm, no murmurs, S1 S2 present Abd: Soft, non tender x 4, non distended. Normal bowel sounds, no guarding or rebound, no pulsitile abdominal masses or bruits, indwelling Preston Skin: No petechiae or rashes, no ecchymosis , no maculopapular rash Back: No midline or flank tenderness Ext: No cyanosis, or edema, FROM x 4, normal inspection, neurovascularly intact x 4 Neur: Sleeping but slightly arousable, cannot get a good exam] Psych: Unable to obtain Result Diagram: 12/31/18 1413 12/31/18 1413 Results 24 hrs Laboratory Tests Test 12/31/18 14:13 12/31/18 14:16 12/31/18 14:38 White Blood Count 6.6 10^3/ul Red Blood Count 2.93 10^6/ul Hemoglobin 9.3 g/dl Hematocrit 29.1 % Mean Corpuscular Volume 99.3 fl Mean Corpuscular Hemoglobin 31.7 pg Mean Corpuscular 32.0 g/dl Hemoglobin Concent Red Cell Distribution Width 13.2 % Platelet Count 139 10^3/UL Mean Platelet Volume 13.4 fl Immature Granulocytes % 0.600 % Neutrophils % 70.7 % Lymphocytes % 16.9 % Monocytes % 7.9 % Eosinophils % 3.0 % Basophils % 0.9 % Nucleated Red Blood Cells % 0.0 /100WBC Immature Granulocytes # 0.040 10^3/ul Neutrophils # 4.6 10^3/ul Lymphocytes # 1.1 10^3/ul Monocytes # 0.5 10^3/ul Eosinophils # 0.2 10^3/ul Basophils # 0.1 10^3/ul Nucleated Red Blood Cells # 0.0 10^3/ul Prothrombin Time 12.8 Sec Prothrombin Time Ratio 1.0 INR International 0.95 Normalized Ratio Activated Partial Thromboplast 28.7 Sec Time Sodium Level 144 mmol/L Potassium Level 3.9 mmol/L Chloride Level 108 mmol/L Carbon Dioxide Level 26 mmol/L Anion Gap 10 Blood Urea Nitrogen 36 mg/dl Creatinine 4.32 mg/dl Est Glomerular Filtrat mL/min Rate mL/min Glucose Level 161 mg/dl Calcium Level 9.5 mg/dl Total Bilirubin 0.1 mg/dl Direct Bilirubin 0.00 mg/dl Indirect Bilirubin 0.1 mg/dl Aspartate Amino 14 IU/L Transf (AST/SGOT) Alanine < 6 IU/L Aminotransferase (ALT/SGPT) Alkaline Phosphatase 72 IU/L Troponin I 0.060 ng/ml Total Protein 7.5 g/dl Albumin 3.9 g/dl Globulin 3.60 g/dl Albumin/Globulin Ratio 1.08 POC Venous Lactate 1.0 mmol/L Urine Color YELLOW Urine Clarity SLIGHTLY CLOUDY Urine pH 5.0 Urine Specific [place] 1.013 Urine Ketones NEGATIVE mg/dL Urine Nitrite NEGATIVE mg/dL Urine Bilirubin NEGATIVE mg/dL Urine Urobilinogen NEGATIVE mg/dL Urine Leukocyte Esterase TRACE Marysol/ul Urine Microscopic RBC > 182 /HPF Urine Microscopic WBC 25 /HPF Urine Bacteria FEW /HPF Urine Hyaline Casts FEW /HPF Urine Mucus FEW /HPF Urine Hemoglobin 3+ mg/dL Urine Glucose NEGATIVE mg/dL Urine Total Protein 2+ mg/dl Current Medications Medications Dose Sig/Thor Start Time Status Last (Trade) Ordered Route PRN Stop Time Admin Dose Reason Admin Sodium 2,700 ml BOLUS OVER 2 12/31/18 DC 12/31/18 Chloride HOURS STAT 13:59 14:25 (NS) IV* 12/31/18 14:01 Cefepime HCl 50 ml @ ONCE STAT 12/31/18 DC 12/31/18 100 mls/hr IVPB 13:59 14:25 12/31/18 14:28 Vancomycin 250 ml @ ONCE ONCE 12/31/18 DC 12/31/18 HCl 125 mls/hr IVPB 14:00 15:45 12/31/18 15:59 Procedures/MDM MR #: [id number] DOS: 12/31/18 1359 Ordering MD: BEBA RODRIGUEZ DO Location: E/R Room/Bed: PROCEDURE: XR Chest. CLINICAL INDICATION: chest pain TECHNIQUE: Single frontal view of the chest was obtained COMPARISON: CR CHEST 05/29/2018 FINDINGS: The heart and mediastinum are within normal limits. There is mild elevation of the left diaphragm. The lungs are clear. There is no pleural effusion or pneumothorax. RPTAT: AA IMPRESSION: No acute disease. .Hemanth Hernandez MD, MD Date Time Electronically viewed and signed by .Hemanth Hernandez MD, MD on 12/31/2018 14:40 .S/ CC: BEBA RODRIGUEZ DO [id number] EKG: Rate/Rhythm: Normal sinus rhythm with first-degree AV block QRS, ST, QT: NORMAL NV, QRS, QT] Impression: Abnormal EKG Patient has a urinary tract infection. Will admit to the hospital. Blood cultures been drawn. His lactic acid is not elevated. CAT scan has been taken and pending results. He said IV antibiotic therapy and will be admitted for UTI with AMS Departure Diagnosis: Primary Impression: Altered level of consciousness Additional Impression: Urinary tract infection Urinary tract infection type: acute cystitis Hematuria presence: without hematuria Qualified Codes: N30.00 - Acute cystitis without hematuria Condition: Stable BEBA RODRIGUEZ DO Dec 31, 2018 16:20
[2018-12-31] MEDS ORDERED: SOD CHLORIDE 0.9% 1,000 ML IV SCH (16:41)
[2018-12-31] MEDS ORDERED: ACETAMINOPHEN 325 MG TAB PO PRN ×2 (17:00→20:00)
[2018-12-31] MEDS ORDERED: ONDANSETRON 4 MG INJ IV PRN ×2 (17:00→20:00)
[2018-12-31 19:49] VITALS: BP 155/58; PULSE 72; RESP 19
[2018-12-31 20:00] VITALS: Ht 167.6 cm; Wt 56.1 kg
[2018-12-31] MEDS ORDERED: BISACODYL (EC) 5 MG TAB PO PRN (20:00)
[2018-12-31] MEDS ORDERED: NACL 0.9% 3 ML SYG IV SCH (20:00)
[2018-12-31] MEDS ORDERED: DOCUSATE SODIUM 100 MG CAP PO PRN (20:00)
[2018-12-31 20:02] VITALS: PULSE 70
--- NOTE | 2018-12-31 20:26 | HP ---
Date/Time of Note Date/Time of Note DATE: 12/31/18 TIME: 20:26 Assessment/Plan VTE Prophylaxis SCD applied (from Nsg): Yes Pharmacological prophylaxis: NA/contraindicated Pharm contraindication: low risk/ambulating Lines/Catheters IV Catheter Type (from Nrsg): Saline Lock Assessment/Plan Hospital Course This is a 83-year-old male being admitted to the telemetry floor for: #1 acute encephalopathy: Possibly secondary to underlying urinary tract infection, mild dehydration. Patient is lethargic, he does open his eyes to commands and withdraw from painful stimuli. Withhold any sedatives. Hold home oral medications as patient currently not able to tolerate given his altered mental status. Ceftriaxone 1 g IV every 24 hours, await urine culture results. We will hydrate the patient with normal saline. Stroke is also in the differential, consider MRI of the brain if no improvement overnight. Consider Neurology consultation. #2 catheter related UTI: Urine culture has been sent. Ceftriaxone 1 g every 24 hours at the present time. #3 severe Parkinson's dementia: Resume home oral medications once able, monitor patient's behavior #4 acute on CKD: Creatinine is elevated from his previous admission. He does appear mildly dehydrated. #5 BPH: Resume home medications as able #6 diabetes mellitus: Most recent hemoglobin A1c 5.7, given that the patient is lethargic and likely not able to swallow the current time, will get a swallow eval, insulin sliding scale #7 CVA: History of CVA. Will need to confirm why patient is on Depakote, will check a Depakote level. #8 hypothyroidism: IV levothyroxine #9: Prostate cancer #10 hypertension: PRN hydralazine at the current time resume oral meds when patient is able #11 DVT GI prophylaxis: SCDs, no GI prophylaxis indicated Further treatment strategy will be examined in hospital course Result Diagram: 12/31/18 1413 12/31/18 1413 Results 24hrs Laboratory Tests Test 12/31/18 14:13 12/31/18 14:16 12/31/18 14:38 White Blood Count 6.6 # Red Blood Count 2.93 L Hemoglobin 9.3 L Hematocrit 29.1 L Mean Corpuscular Volume 99.3 Mean Corpuscular Hemoglobin 31.7 Mean Corpuscular 32.0 Hemoglobin Concent Red Cell Distribution Width 13.2 Platelet Count 139 #L Mean Platelet Volume 13.4 H Immature Granulocytes % 0.600 H Neutrophils % 70.7 Lymphocytes % 16.9 Monocytes % 7.9 Eosinophils % 3.0 Basophils % 0.9 Nucleated Red Blood Cells % 0.0 Immature Granulocytes # 0.040 H Neutrophils # 4.6 Lymphocytes # 1.1 Monocytes # 0.5 Eosinophils # 0.2 Basophils # 0.1 Nucleated Red Blood Cells # 0.0 Prothrombin Time 12.8 Prothrombin Time Ratio 1.0 INR International 0.95 Normalized Ratio Activated Partial Thromboplast 28.7 Time Sodium Level 144 Potassium Level 3.9 Chloride Level 108 Carbon Dioxide Level 26 Anion Gap 10 Blood Urea Nitrogen 36 H Creatinine 4.32 H Est Glomerular Filtrat Rate mL/min Glucose Level 161 Calcium Level 9.5 Total Bilirubin 0.1 L Direct Bilirubin 0.00 Indirect Bilirubin 0.1 Aspartate Amino 14 L Transf (AST/SGOT) Alanine < 6 L Aminotransferase (ALT/SGPT) Alkaline Phosphatase 72 Troponin I 0.060 Total Protein 7.5 Albumin 3.9 Globulin 3.60 H Albumin/Globulin Ratio 1.08 POC Venous Lactate 1.0 Urine Color YELLOW Urine Clarity SLIGHTLY CLOUDY A Urine pH 5.0 Urine Specific [place] 1.013 Urine Ketones NEGATIVE Urine Nitrite NEGATIVE Urine Bilirubin NEGATIVE Urine Urobilinogen NEGATIVE Urine Leukocyte Esterase TRACE A Urine Microscopic RBC > 182 H Urine Microscopic WBC 25 H Urine Bacteria FEW A Urine Hyaline Casts FEW A Urine Mucus FEW A Urine Hemoglobin 3+ H Urine Glucose NEGATIVE Urine Total Protein 2+ H HPI/ROS Admit Date/Time Admit Date/Time Dec 31, 2018 at 16:41 Hx of Present Illness Chief complaint: Altered mental status The following history was obtained from the ED physician documentation, from the RN, as patient is unable to provide history given patient's mental status This is a 83-year-old male with severe Parkinson's disease and Parkinson's dementia who is here with family he states that over the past day and a half he said of declining mental status and him not eating. Patient is currently at a detention where he was placed upon discharge from [facility] during previous admission. Patient has a chronic indwelling [place]. Patient has been sleeping more than usual. During previous admission patient did have altered mental status as well. In his sedation medications were discontinued and his Sinemet was adjusted and eventually improved. Allergies: Lorazepam Medications: See MAR ROS Subjective hx not possible: other (Lethargic, dementia) PMH/Family/Social Past Medical History severe Parkinson's dementia CKD BPH diabetes mellitus, CVA hypothyroidism prostate cancer cva Medications Current Medications Sodium Chloride 1,000 ml @ 80 mls/hr [id number] IV Last administered on 12/31/18at 16:41; Admin Dose 80 MLS/HR; Start 12/31/18 at 16:41; Stop 01/01/19 at 05:10 Ondansetron HCl (Zofran Inj) 4 mg ER BRIDGE PRN IV NAUSEA/VOMITING; Start 12/31/18 at 17:00; Stop 01/01/19 at 16:59 Acetaminophen (Tylenol Tab) 650 mg ER BRIDGE PRN PO .MILD PAIN 1-3 OR TEMP; Start 12/31/18 at 17:00; Stop 01/01/19 at 16:59 Amlodipine Besylate (Norvasc) 10 mg DAILY PO ; Start 01/01/19 at 09:00 Atorvastatin Calcium (Lipitor) 40 mg QHS PO ; Start 12/31/18 at 21:00 Clopidogrel Bisulfate (plaVIX) 75 mg DAILY PO ; Start 01/01/19 at 09:00 Diclofenac Sodium (Voltaren 1% Gel) 2 gm BID TP ; Start 12/31/18 at 21:30 Divalproex Sodium (Depakote Er) 500 mg QHS PO ; Start 12/31/18 at 21:30 Levothyroxine Sodium (Synthroid) 25 mcg BEFORE BREAKFAST PO ; Start 01/01/19 at 07:00 Pantoprazole (Protonix Tab) 40 mg AC BREAKFAST PO ; Start 01/01/19 at 07:00 IV Flush (NS 3 ml) 3 ml PER PROTOCOL IV ; Start 12/31/18 at 20:00 Ondansetron HCl (Zofran Inj) 4 mg Q6H PRN IV NAUSEA/VOMITING; Start 12/31/18 at 20:00 Acetaminophen (Tylenol Tab) 650 mg Q6H PRN PO .PAIN 1-3 OR TEMP; Start 12/31/18 at 20:00 Docusate Sodium (Colace) 100 mg Q12H PRN PO .CONSTIPATION; Start 12/31/18 at 20:00 Bisacodyl (Dulcolax) 5 mg DAILY PRN PO .CONSTIPATION; Start 12/31/18 at 20:00 Coded Allergies: lorazepam (Verified Allergy, Severe, PARADOXICAL REACTION W/ INCREASED AGITATION, 12/31/18) Past Surgical History Past Surgical Hx: endoscopy Family History Significant Family History: no pertinent family hx Social History Alcohol Use: none Smoking Status: Never smoker Drug Use: none Exam/Review of Systems Vital Signs Vitals Vital Signs Date Temp Pulse Resp B/P (MAP) Pulse Ox O2 O2 Flow FiO2 Time Delivery Rate 12/31/18 70 20:02 12/31/18 98.5 19 155/58 95 19:49 (90) 12/31/18 Nasal 2.0 18:11 Cannula Exam Exam General: Patient is lethargic, he does open his eyes to verbal command but he falls back asleep, he does withdraw to painful stimuli HEENT: Atraumatic, normocephalic. The pupils are equal, round and reactive. Extraocular motor are intact, mucous membranes dry Neck: Supple with full range of motion. No rigidity or meningismus Chest: Nontender Lungs: Clear to auscultation bilaterally no crackles rales or wheezing Heart: Normal S1-S2, Regular rhythm and rate. No murmur, S3, or S4 Abdomen: Soft , nontender, nondistended , bowel sounds are present. No guarding no rebound tenderness , No masses or organomegaly. No costovertebral temporal angle mass Extremities: Normal to inspection, no edema no cyanosis Neurologic: Lethargic, opens eyes to verbal commands, withdraws to pain. Additional Comments PROCEDURE: CT Brain without contrast. CLINICAL INDICATION: Altered level of consciousness TECHNIQUE: A CT of the brain was performed on a [employer] 64-slice CT scanner utilizing axial imaging from the skull base through the vertex without IV contrast. Multiplanar reformatted images were made. Images were reviewed on a PACS workstation. The CTDIvol is 38.9 mGy and the DLP is 858.1 mGycm. One or more the following dose reduction techniques were utilized: Automated exposure control, adjustment of mA/ or kV according to patient's size, or use of iterative reconstruction technique. DICOM images are available for review. COMPARISON: CT BRAIN 12/13/2018 FINDINGS: There is no intracranial hemorrhage, mass effect, or midline shift. the ventricles and sulci are diffusely prominent consistent with moderate generalized volume loss. Again seen is confluent hypoattenuation throughout the periventricular white matter, stable. There is good de la cruz-white matter differentiation throughout the cerebral hemispheres. The visualized brainstem and cerebellum are unremarkable. No extra-axial fluid collection is seen. The visualized paranasal sinuses and osseous structures are grossly unremarkable. IMPRESSION: No evidence of acute intracranial pathology. There is moderate generalized volume loss with microvascular changes, stable. RPTAT: KK Physician Antonio Date Time Electronically viewed and signed by Kianna Moralez Physician on 12/31/2018 16:30 RL/ CC: BEBA RODRIGUEZ DO [id number] PROCEDURE: XR Chest. CLINICAL INDICATION: chest pain TECHNIQUE: Single frontal view of the chest was obtained COMPARISON: CR CHEST 05/29/2018 FINDINGS: The heart and mediastinum are within normal limits. There is mild elevation of the left diaphragm. The lungs are clear. There is no pleural effusion or pneumothorax. RPTAT: AA IMPRESSION: No acute disease. .Hemanth Hernandez MD, Date Time Electronically viewed and signed by .Hemanth Hernandez MD, MD on 12/31/2018 14:40 .S/ CC: BEBA RODRIGUEZ DO [id number] STEFANIE MAURICE Dec 31, 2018 20:26
[2018-12-31] MEDS ORDERED: ERGOCALCIFEROL 50,000 UNIT CAP PO SCH (20:30)
[2018-12-31] MEDS: ATORVASTATIN 40 MG TAB PO SCH (21:00)
[2018-12-31] MEDS: DOCUSATE SODIUM 250 MG CAP PO SCH (21:00)
[2018-12-31] MEDS ORDERED: NON-FORMULARY/PATIENT OWN MED (Carbidopa/Levodopa (Carbidopa-Levo 25-100 Mg Odt) 1 TAB) PO SCH (21:00)
[2018-12-31] MEDS ORDERED: DIVALPROEX (ER) 500 MG TAB PO SCH (21:30)
[2018-12-31] MEDS: CEFTRIAXONE 1 GM/50 ML (PMX) 50 ML IVPB SCH (22:52)
[2018-12-31] MEDS: DICLOFENAC SODIUM 1% GEL 100 GM TUBE TP SCH (23:06)
[2019-01-01] VITALS (12 sets, daily range): BP systolic 112–134; BP diastolic 58–88; PULSE 48–72; RESP 18–19
[2019-01-01] MEDS ORDERED: GLUCOSE GEL 15 GRAM TUBE BUCCAL PRN (05:00)
[2019-01-01] MEDS: INSULIN ASPART [NOVOLOG] 3 ML PEN SC SCH ×5 (05:00→20:50)
[2019-01-01] MEDS ORDERED: GLUCAGON 1 MG INJ IM PRN (05:00)
[2019-01-01] MEDS ORDERED: GLUCOSE GEL 15 GRAM TUBE PO PRN ×2 (05:00)
[2019-01-01] MEDS ORDERED: DEXTROSE 50% 50 ML SYRINGE IV PRN ×2 (05:00)
[2019-01-01] MEDS ORDERED: LEVOTHYROXINE 100 MCG VIAL IV SCH (06:00)
[2019-01-01] MEDS: DEXTROSE 5%-0.45% NACL 1,000 ML IV SCH ×2 (06:02→20:45)
[2019-01-01] MEDS ORDERED: LEVOTHYROXINE 25 MCG TAB PO SCH (07:00)
[2019-01-01] MEDS: PANTOPRAZOLE (EC) 40 MG TAB PO SCH (07:00)
[2019-01-01] MEDS: DOCUSATE SODIUM 250 MG CAP PO SCH ×2 (08:35→20:42)
[2019-01-01] MEDS: CLOPIDOGREL 75 MG TAB PO SCH (08:35)
[2019-01-01] MEDS: CARBIDOPA/LEVODOPA (25/100) TAB PO SCH ×4 (08:35→20:42)
[2019-01-01] MEDS: DUTASTERIDE 0.5 MG CAP PO SCH (08:35)
[2019-01-01] MEDS: AMLODIPINE 10 MG TAB PO SCH (08:36)
[2019-01-01] MEDS ORDERED: ERGOCALCIFEROL 50,000 UNIT CAP PO SCH (09:00)
[2019-01-01] MEDS: DICLOFENAC SODIUM 1% GEL 100 GM TUBE TP SCH ×2 (09:18→20:52)
--- NOTE | 2019-01-01 12:13 | CONDCODE ---
Medicare Criteria-> INP to OBS Patient still in hospital: Yes SI/IS Criteria met: No Attending MD agrees w/change: Yes Order entered in Pt. record: Yes Pt. does not meet Inp Criteria: Yes Medicare Inp->Obs Criteria met: Yes UR Phys Advisor eSign required: Yes I personally scribed for GILBERTO RUSHING MD ([facility]) on 01/01/19 at 12:13. Electronically submitted by Ashlyn Arthur ([facility]). GILBERTO RUSHING MD January 01, 2019 12:13
--- NOTE | 2019-01-01 12:13 | CONDCODE ---
Medicare Criteria-> INP to OBS Patient still in hospital: Yes SI/IS Criteria met: No Attending MD agrees w/change: Yes Order entered in Pt. record: Yes Pt. does not meet Inp Criteria: Yes Medicare Inp->Obs Criteria met: Yes UR Phys Advisor eSign required: Yes I personally scribed for ALEJANDRA MOSQUEDA MD ([facility]) on 01/01/19 at 12:13. Electronically submitted by Ashlyn Arthur ([facility] ALEJANDRA MOSQUEDA MD January 01, 2019 12:13
--- NOTE | 2019-01-01 12:23 | PN ---
Date/Time of Note Date/Time of Note DATE: 01/01/19 TIME: 12:23 Assessment/Plan VTE Prophylaxis Risk score (from Ns)>0 risk: 6 SCD applied (from Ns): Yes Pharmacological prophylaxis: NA/contraindicated Pharm contraindication: low risk/ambulating Lines/Catheters IV Catheter Type (from Nrsg): Peripheral IV Urinary Cath still in place: Yes (from SNF) Reason Cath still needed: urinary retention Assessment/Plan Assessment/Plan 1. Acute toxic encephalopathy - most likely secondary to UTI and dehydration - monitor for improvement in mentation - antibiotics on board 2. UTI - continue current antibiotics and urine culture pending 3. Severe Parkinson's dementia - resume home medications 4. JEFFREY on CKD - improvement following fluids - Will consult nephrology if worsens 5. BPH - continue home medications 6. Diabetes mellitus - A1c noted - ISS and accuchecks 7. hypothyroidism - continue levothyroxine 8. HTN - stable 9. Disposition - Continue current care and monitor for improvement in mental status Result Diagram: 01/01/19 0500 01/01/19 0500 Results 24hrs Laboratory Tests Test 12/31/18 14:13 12/31/18 14:16 12/31/18 14:38 12/31/18 23:50 White Blood 6.6 # Count Red Blood Count 2.93 L Hemoglobin 9.3 L Hematocrit 29.1 L Mean Corpuscular 99.3 Volume Mean Corpuscular 31.7 Hemoglobin Mean Corpuscular 32.0 Hemoglobin Bernadette nt Red Cell 13.2 Distribution Width Platelet Count 139 #L Mean Platelet 13.4 H Volume Immature 0.600 H Granulocytes % Neutrophils % 70.7 Lymphocytes % 16.9 Monocytes % 7.9 Eosinophils % 3.0 Basophils % 0.9 Nucleated Red 0.0 Blood Cells % Immature 0.040 H Granulocytes # Neutrophils # 4.6 Lymphocytes # 1.1 Monocytes # 0.5 Eosinophils # 0.2 Basophils # 0.1 Nucleated Red 0.0 Blood Cells # Prothrombin Time 12.8 Prothrombin Time 1.0 Ratio INR 0.95 International Normalized Ratio Activated 28.7 Partial Thrombop last Time Sodium Level 144 Potassium Level 3.9 Chloride Level 108 Carbon Dioxide 26 Level Anion Gap 10 Blood Urea 36 H Nitrogen Creatinine 4.32 H Est Glomerular Filtrat Rate mL/min Glucose Level 161 Calcium Level 9.5 Total Bilirubin 0.1 L Direct Bilirubin 0.00 Indirect 0.1 Bilirubin Aspartate Amino 14 L Transf (AST/SGOT ) Alanine < 6 L Aminotransferase (ALT/SGPT) Alkaline 72 Phosphatase Troponin I 0.060 Total Protein 7.5 Albumin 3.9 Globulin 3.60 H Albumin/Globulin 1.08 Ratio POC Venous 1.0 Lactate Urine Color YELLOW Urine Clarity SLIGHTLY CLOUDY A Urine pH 5.0 Urine Specific 1.013 [place] Urine Ketones NEGATIVE Urine Nitrite NEGATIVE Urine Bilirubin NEGATIVE Urine NEGATIVE Urobilinogen Urine Leukocyte TRACE A Esterase Urine > 182 H Microscopic RBC Urine 25 H Microscopic WBC Urine Bacteria FEW A Urine Hyaline FEW A Casts Urine Mucus FEW A Urine Hemoglobin 3+ H Urine Glucose NEGATIVE Urine Total 2+ H Protein Blood Gas Blood arterial Specimen Source Arterial Blood 01/01/2019 12:03: Date Drawn 43 AM Arterial Blood 7.403 pH (Temp corrected) Arterial Blood 37.2 pCO2 (Temp correct) Arterial Blood 145.6 H pO2 (Temp corrected) Arterial Blood 22.7 HCO3 Arterial Blood -1.7 Base Excess Arterial Blood 98.4 Oxygen Saturatio n Raoul Test ACCEPTAB Arterial Blood Right Radial Gas Puncture Site Arterial 0.3 Blood Carboxyhem oglobin Arterial Blood 0.3 Methemoglobin Blood Gas A-a O2 2.9 L Differential Oxyhemoglobin 97.8 Percent Blood Gas 37.0 Temperature Blood Gas NASAL CANNULA Modality FiO2 27.0 Blood Gas Nasrin Diaz [facility] Notified Whom Blood Gas 01/01/2019 12:09: Notified Time 10 AM Test 01/01/19 05:00 01/01/19 05:47 01/01/19 05:49 01/01/19 06:13 White Blood 5.7 Count Red Blood Count 2.84 L Hemoglobin 9.0 L Hematocrit 28.2 L Mean Corpuscular 99.3 Volume Mean Corpuscular 31.7 Hemoglobin Mean Corpuscular 31.9 L Hemoglobin Bernadette nt Red Cell 13.2 Distribution Width Platelet Count 131 L Mean Platelet 13.7 H Volume Immature 0.500 H Granulocytes % Neutrophils % 75.4 Lymphocytes % 14.3 L Monocytes % 7.2 Eosinophils % 1.9 Basophils % 0.7 Nucleated Red 0.0 Blood Cells % Immature 0.030 Granulocytes # Neutrophils # 4.3 Lymphocytes # 0.8 Monocytes # 0.4 Eosinophils # 0.1 Basophils # 0.0 Nucleated Red 0.0 Blood Cells # Sodium Level 147 H Potassium Level 3.6 Chloride Level 113 H Carbon Dioxide 24 Level Anion Gap 10 Blood Urea 31 H Nitrogen Creatinine 3.82 H Est Glomerular Filtrat Rate mL/min Glucose Level 41 #*L Calcium Level 8.7 Magnesium Level 2.4 Total Bilirubin 0.0 L Direct Bilirubin 0.00 Indirect 0.0 Bilirubin Aspartate Amino 14 L Transf (AST/SGOT ) Alanine < 6 L Aminotransferase (ALT/SGPT) Alkaline 66 Phosphatase Total Protein 6.6 Albumin 3.6 Globulin 3.00 Albumin/Globulin 1.20 Ratio Valproic Acid 14 L (Depakene) Level Bedside Glucose 40 *L 39 *L 199 Test 01/01/19 08:33 Bedside Glucose 164 Subjective 24 Hr Interval Summary Free Text/Dictation Patient is still lethargic but per , was communicating with her this am and took all his medications. Exam/Review of Systems Exam Vitals Vital Signs Date Temp Pulse Resp B/P (MAP) Pulse Ox O2 O2 Flow FiO2 Time Delivery Rate 01/01/19 62 12:11 01/01/19 97.9 18 118/58 98 Room Air 11:30 (78) 12/31/18 2.0 20:00 Intake and Output 12/31/18 12/31/18 01/01/19 1515:00 23:00 07:00 IntakeIntake Total 2700 ml 0 ml OutputOutput Total 800 ml BalanceBalance 2700 ml -800 ml Exam General: lethargic, pointing at bladder area and grimacing but not verbalizing concerns Chest: Nontender Lungs: Clear to auscultation bilaterally no crackles rales or wheezing Heart: Normal S1-S2, Regular rhythm and rate. No murmur, S3, or S4 Abdomen: Soft , nontender, nondistended , bowel sounds are present. No guarding no rebound tenderness : clear urine in schwartz, grimaces when pubic area palpated Skin: no rashes or lesions appreciated Results Results 24hrs Laboratory Tests Test 12/31/18 14:13 12/31/18 14:16 12/31/18 14:38 12/31/18 23:50 White Blood 6.6 # Count Red Blood Count 2.93 L Hemoglobin 9.3 L Hematocrit 29.1 L Mean Corpuscular 99.3 Volume Mean Corpuscular 31.7 Hemoglobin Mean Corpuscular 32.0 Hemoglobin Bernadette nt Red Cell 13.2 Distribution Width Platelet Count 139 #L Mean Platelet 13.4 H Volume Immature 0.600 H Granulocytes % Neutrophils % 70.7 Lymphocytes % 16.9 Monocytes % 7.9 Eosinophils % 3.0 Basophils % 0.9 Nucleated Red 0.0 Blood Cells % Immature 0.040 H Granulocytes # Neutrophils # 4.6 Lymphocytes # 1.1 Monocytes # 0.5 Eosinophils # 0.2 Basophils # 0.1 Nucleated Red 0.0 Blood Cells # Prothrombin Time 12.8 Prothrombin Time 1.0 Ratio INR 0.95 International Normalized Ratio Activated 28.7 Partial Thrombop last Time Sodium Level 144 Potassium Level 3.9 Chloride Level 108 Carbon Dioxide 26 Level Anion Gap 10 Blood Urea 36 H Nitrogen Creatinine 4.32 H Est Glomerular Filtrat Rate mL/min Glucose Level 161 Calcium Level 9.5 Total Bilirubin 0.1 L Direct Bilirubin 0.00 Indirect 0.1 Bilirubin Aspartate Amino 14 L Transf (AST/SGOT ) Alanine < 6 L Aminotransferase (ALT/SGPT) Alkaline 72 Phosphatase Troponin I 0.060 Total Protein 7.5 Albumin 3.9 Globulin 3.60 H Albumin/Globulin 1.08 Ratio POC Venous 1.0 Lactate Urine Color YELLOW Urine Clarity SLIGHTLY CLOUDY A Urine pH 5.0 Urine Specific 1.013 [place] Urine Ketones NEGATIVE Urine Nitrite NEGATIVE Urine Bilirubin NEGATIVE Urine NEGATIVE Urobilinogen Urine Leukocyte TRACE A Esterase Urine > 182 H Microscopic RBC Urine 25 H Microscopic WBC Urine Bacteria FEW A Urine Hyaline FEW A Casts Urine Mucus FEW A Urine Hemoglobin 3+ H Urine Glucose NEGATIVE Urine Total 2+ H Protein Blood Gas Blood arterial Specimen Source Arterial Blood 01/01/2019 12:03: Date Drawn 43 AM Arterial Blood 7.403 pH (Temp corrected) Arterial Blood 37.2 pCO2 (Temp correct) Arterial Blood 145.6 H pO2 (Temp corrected) Arterial Blood 22.7 HCO3 Arterial Blood -1.7 Base Excess Arterial Blood 98.4 Oxygen Saturatio n Raoul Test ACCEPTAB Arterial Blood Right Radial Gas Puncture Site Arterial 0.3 Blood Carboxyhem oglobin Arterial Blood 0.3 Methemoglobin Blood Gas A-a O2 2.9 L Differential Oxyhemoglobin 97.8 Percent Blood Gas 37.0 Temperature Blood Gas NASAL CANNULA Modality FiO2 27.0 Blood Gas Nasrin Diaz [facility] Notified Whom Blood Gas 01/01/2019 12:09: Notified Time 10 AM Test 01/01/19 05:00 01/01/19 05:47 01/01/19 05:49 01/01/19 06:13 White Blood 5.7 Count Red Blood Count 2.84 L Hemoglobin 9.0 L Hematocrit 28.2 L Mean Corpuscular 99.3 Volume Mean Corpuscular 31.7 Hemoglobin Mean Corpuscular 31.9 L Hemoglobin Bernadette nt Red Cell 13.2 Distribution Width Platelet Count 131 L Mean Platelet 13.7 H Volume Immature 0.500 H Granulocytes % Neutrophils % 75.4 Lymphocytes % 14.3 L Monocytes % 7.2 Eosinophils % 1.9 Basophils % 0.7 Nucleated Red 0.0 Blood Cells % Immature 0.030 Granulocytes # Neutrophils # 4.3 Lymphocytes # 0.8 Monocytes # 0.4 Eosinophils # 0.1 Basophils # 0.0 Nucleated Red 0.0 Blood Cells # Sodium Level 147 H Potassium Level 3.6 Chloride Level 113 H Carbon Dioxide 24 Level Anion Gap 10 Blood Urea 31 H Nitrogen Creatinine 3.82 H Est Glomerular Filtrat Rate mL/min Glucose Level 41 #*L Calcium Level 8.7 Magnesium Level 2.4 Total Bilirubin 0.0 L Direct Bilirubin 0.00 Indirect 0.0 Bilirubin Aspartate Amino 14 L Transf (AST/SGOT ) Alanine < 6 L Aminotransferase (ALT/SGPT) Alkaline 66 Phosphatase Total Protein 6.6 Albumin 3.6 Globulin 3.00 Albumin/Globulin 1.20 Ratio Valproic Acid 14 L (Depakene) Level Bedside Glucose 40 *L 39 *L 199 Test 01/01/19 08:33 Bedside Glucose 164 Medications Medication Current Medications Ondansetron HCl (Zofran Inj) 4 mg ER BRIDGE PRN IV NAUSEA/VOMITING; Start 12/31/18 at 17:00; Stop 01/01/19 at 16:59 Acetaminophen (Tylenol Tab) 650 mg ER BRIDGE PRN PO .MILD PAIN 1-3 OR TEMP; Start 12/31/18 at 17:00; Stop 01/01/19 at 16:59 Amlodipine Besylate (Norvasc) 10 mg DAILY PO Last administered on 01/01/19at 08:36; Admin Dose 10 MG; Start 01/01/19 at 09:00 Atorvastatin Calcium (Lipitor) 40 mg QHS PO ; Start 12/31/18 at 21:00 Clopidogrel Bisulfate (plaVIX) 75 mg DAILY PO Last administered on 01/01/19at 08:35; Admin Dose 75 MG; Start 01/01/19 at 09:00 Diclofenac Sodium (Voltaren 1% Gel) 2 gm BID TP Last administered on 01/01/19at 09:18; Admin Dose 2 GM; Start 12/31/18 at 21:30 Levothyroxine Sodium (Synthroid) 25 mcg BEFORE BREAKFAST PO ; Start 01/01/19 at 07:00; Status Hold Pantoprazole (Protonix Tab) 40 mg AC BREAKFAST PO ; Start 01/01/19 at 07:00 IV Flush (NS 3 ml) 3 ml PER PROTOCOL IV ; Start 12/31/18 at 20:00 Ondansetron HCl (Zofran Inj) 4 mg Q6H PRN IV NAUSEA/VOMITING; Start 12/31/18 at 20:00 Acetaminophen (Tylenol Tab) 650 mg Q6H PRN PO .PAIN 1-3 OR TEMP; Start 12/31/18 at 20:00 Docusate Sodium (Colace) 100 mg Q12H PRN PO .CONSTIPATION; Start 12/31/18 at 20:00 Bisacodyl (Dulcolax) 5 mg DAILY PRN PO .CONSTIPATION; Start 12/31/18 at 20:00 Ceftriaxone Sodium 50 ml @ 100 mls/hr Q24H IVPB Last administered on 12/31/18at 22:52; Admin Dose 100 MLS/HR; Start 12/31/18 at 22:00 Docusate Sodium (Colace) 250 mg BID PO Last administered on 01/01/19at 08:35; Admin Dose 250 MG; Start 12/31/18 at 21:00 Dutasteride (Avodart) 0.5 mg DAILY PO Last administered on 01/01/19at 08:35; Admin Dose 0.5 MG; Start 01/01/19 at 09:00 Ergocalciferol (Drisdol) 50,000 unit Q7D PO Last administered on 01/01/19at 09:19; Admin Dose 50,000 UNIT; Start 01/01/19 at 09:00 Carbidopa/Levodopa (Sinemet (25/ 100)) 1 tab QID PO Last administered on at 08:35; Admin Dose 1 TAB; Start 01/01/19 at 09:00 Diagnostic Test (Pha) (Accu-Chek) 1 ea 02 XX ; Start 01/02/19 at 02:00 Insulin Aspart (Novolog Insulin Pen) NOVOLOG *MILD* ALGORI... Q4 SC Last adm inistered on 01/01/19at 09:23; Admin Dose 1 UNIT; Start 01/01/19 at 05:00 Miscellaneous Information 1 ea NOTE XX ; Start 01/01/19 at 05:00 Glucose (Glutose) 15 gm Q15M PRN PO DECREASED GLUCOSE; Start 01/01/19 at 05:00 Glucose (Glutose) 22.5 gm Q15M PRN PO DECREASED GLUCOSE; Start 01/01/19 at 05:00 Dextrose (D50w Syringe) 25 ml Q15M PRN IV DECREASED GLUCOSE; Start 01/01/19 at 05:00 Dextrose (D50w Syringe) 50 ml Q15M PRN IV DECREASED GLUCOSE Last administered on 01/01/19at 05:55; Admin Dose 50 ML; Start 01/01/19 at 05:00 Glucagon (Glucagen) 1 mg Q15M PRN IM DECREASED GLUCOSE; Start 01/01/19 at 05:00 Glucose (Glutose) 15 gm Q15M PRN BUCCAL DECREASED GLUCOSE; Start 01/01/19 at 05:00 Dextrose/Sodium Chloride 1,000 ml @ 75 mls/hr [id number] IV Last administered on 01/01/19at 06:02; Admin Dose 75 MLS/HR; Start 01/01/19 at 06:00 ALEJANDRA MOSQUEDA MD January 01, 2019 12:23
[2019-01-01] MEDS: ATORVASTATIN 40 MG TAB PO SCH (20:42)
[2019-01-01] MEDS: CEFTRIAXONE 1 GM/50 ML (PMX) 50 ML IVPB SCH (21:39)
[2019-01-02] VITALS (10 sets, daily range): BP systolic 120–155; BP diastolic 61–70; PULSE 52–68; RESP 18–22
[2019-01-02] MEDS: INSULIN ASPART [NOVOLOG] 3 ML PEN SC SCH ×5 (01:01→17:00)
[2019-01-02] MEDS ORDERED: ACCU-CHEK XX SCH (02:00)
[2019-01-02] MEDS: PANTOPRAZOLE (EC) 40 MG TAB PO SCH (06:16)
[2019-01-02] MEDS: DEXTROSE 5%-0.45% NACL 1,000 ML IV SCH ×2 (08:40→13:02)
[2019-01-02] MEDS: DUTASTERIDE 0.5 MG CAP PO SCH (08:42)
[2019-01-02] MEDS: DOCUSATE SODIUM 250 MG CAP PO SCH (08:43)
[2019-01-02] MEDS: AMLODIPINE 10 MG TAB PO SCH (08:43)
[2019-01-02] MEDS: CARBIDOPA/LEVODOPA (25/100) TAB PO SCH ×3 (08:43→17:31)
[2019-01-02] MEDS: CLOPIDOGREL 75 MG TAB PO SCH (08:43)
[2019-01-02] MEDS: DICLOFENAC SODIUM 1% GEL 100 GM TUBE TP SCH (08:54)
[2019-01-02] MEDS ORDERED: TAMS-14 PO ×2 (10:28)
[2019-01-02] MEDS ORDERED: LEVO500T10 PO (10:39)
--- NOTE | 2019-01-02 22:25 | DS ---
DATE OF ADMISSION: 12/31/2018 DATE OF DISCHARGE: 01/02/2019 DISCHARGE DIAGNOSES: 1. Preston catheter associated urinary tract infection. 2. Altered mental status secondary to above, improved. 3. Moderate Parkinson's dementia. 4. Acute on chronic kidney disease. 5. Benign prostatic hypertrophy. 6. Type 2 diabetes mellitus. 7. History of old cerebrovascular accident. 8. Hypothyroidism. 9. History of prostate cancer. 10. Hypertension. HOSPITAL COURSE: An 84-year-old male with multiple other medical problems, presented to emergency ro with altered mental status. The patient was lethargic on presentation. He was diagnosed with uri nary tract infection. Urine culture grew negative staph sensitive to multiple antibiotics. The wendy ent was residing at a nursing facility prior to admission. His requested that he will be discha rged home. She also requested for Preston catheter to be removed. The patient is in a stable conditio n for discharge. I ordered a physical therapy evaluation and home health physical therapy. He is be ing discharged home on Flomax and Levaquin. DISCHARGE MEDICATIONS: 1. Norvasc 10 mg p.o. daily. 2. Lipitor 40 mg p.o. at bedtime. 3. Carbidopa/Levodopa 25/100 1.5 tablets q.i.d. 4. Plavix 75 mg daily. 5. Voltaren gel twice daily. 6. Divalproex sodium 500 mg daily. 7. Avodart 0.5 mg daily. 8. Glimepiride 4 mg daily. 9. Hydralazine 100 mg as needed. 10. Levothyroxine 25 mg daily. 11. Protonix 40 mg daily. 12. 12.5 mg b.i.d. 13. Januvia 100 mg daily. 14. Levaquin 500 mg daily x7 days. Dictated By: DENITA HAMILTON/NELLA Conf#: [id number] DID#: [id number] CC: KEYONA ORTIZ MD;*End*
[2019-01-03 00:10] VITALS: BP 134/64; PULSE 68; RESP 17
== END 2019-01-02 20:02 | disposition home health service (06) ==
LOC: E/R 13:18 → 6WM 16:41 → INTOOBSV 16:41 → SUATTDRO 17:31
PROVIDERS: ADMIT Internal Medicine; ATTEND Internal Medicine
DX: N39.0 Urinary tract infection, site not specified (principal); G20 Parkinson's disease; F02.80 Dementia in other diseases classified elsewhere, unspecified severity, without behavioral disturbance, psychotic disturbance, mood disturbance, and anxiety; I12.9 Hypertensive chronic kidney disease with stage 1 through stage 4 chronic kidney disease, or unspecified chronic kidney disease; E11.22 Type 2 diabetes mellitus with diabetic chronic kidney disease; N18.9 Chronic kidney disease, unspecified; N40.0 Benign prostatic hyperplasia without lower urinary tract symptoms; N17.9 Acute kidney failure, unspecified; E03.9 Hypothyroidism, unspecified; Z85.46 Personal history of malignant neoplasm of prostate; Z86.73 Personal history of transient ischemic attack (TIA), and cerebral infarction without residual deficits; Z79.02 Long term (current) use of antithrombotics/antiplatelets
CPT/HCPCS: 36600; 70450; 71045; 80053; 80069; 80164; 81001; 82803; 82962; 83605; 83735; 84484; 85025; 85610; 85730; 87040; 87081; 87086; 92610; 93005; 96374; 96375; 97162; 99285; G0378; J0692; J0696; J1815; J3370; J7030; J7042; 99217